=== PATIENT | male | born 1945 | race Caucasian/White ===

== ENCOUNTER 2017-02-18 09:06 | Outpatient (CLI) | payer MEDICARE, OTHER | END 2017-02-18 09:07 | disposition home or self-care (01) | LOC: LAB.F 09:06 | PROVIDERS: ATTEND Student in an Organized Health Care Education/Training Program | DX: Z53.9 Procedure and treatment not carried out, unspecified reason (principal) ==

== ENCOUNTER 2017-07-23 14:21 | Outpatient (CLI) | payer MEDICARE, OTHER ==
--- NOTE | 2017-07-26 17:43 | DEXA Report ---
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 Please evaluate bone mineral density. TECHNIQUE: Dual energy x-ray absorptiometry (DXA) was performed on a [employer] ([email or web address]) system. Regions measured are the AP spine and hip. COMPARISON: 05/26/2016. In accordance with the International Society for Clinical Densitometry (ISCD) guidelines, data from previous exams may be reanalyzed using current recommendations and techniques. This is done to allow a more accurate basis for comparison with the current study. FINDINGS The data for the lumbar spine is as follows: REGION BMD (g/cm/cm) T-SCORE Z-SCORE L1 1.500 2.8 3.6 L2 1.242 0.0 0.8 L3 1.177 -0.5 0.2 L4 1.480 2.0 2.8 L1-L4 1.351 1.1 1.9 NOTE: All evaluable vertebrae are used for classification. The data for the hip is as follows: REGION BMD (g/cm/cm) T-SCORE Z-SCORE Neck 1.100 0.2 1.7 TOTAL 1.133 0.2 1.2 NOTE: The femoral neck or total proximal femur, whichever is lowest, is used for classification. DEXA RESULTS SUMMARY: Spine SCAN DATE AGE BMD T-SCORE BMD CHANGE VS BASELINE BMD CHANGE VS PREVIOUS 07/23/[age] 1.351 -- -0.330* -19.6* 05/26/2016 [age] 1.681 -- -- -- * Denotes significant change at the 95% confidence level. Denotes dissimilar scan types or analysis methods. DEXA RESULTS SUMMARY: Total hip SCAN DATE AGE BMD T-SCORE BMD CHANGE VS BASELINE BMD CHANGE VS PREVIOUS [age] 1.133 -- -0.044* -3.7* 05/26/2016 70.9 1.177 -- -- -- * Denotes significant change at the 95% confidence level. Denotes dissimilar scan types or analysis methods. Lumbar spine bone mineral density L1-L4 1.351 grams per cm2. T-score 1.1, Z- score 1.9. WHO classification normal, interval change compared to prior exam, a decrease of 19.6%. Femoral neck bone mineral density 1.100 grams per cm2. T-score 0.2, Z-score 1.7. WHO classification normal IMPRESSION: WHO CLASSIFICATION BASED ON THE INTERNATIONAL REFERENCE STANDARD IS NORMAL BONE MINERAL DENSITY. PLEASE KEEP IN MIND, HOWEVER, THAT SCLEROTIC METASTASES, IF PRESENT, MAY ARTIFICIALLY INCREASE THE DENSITY MEASURED. THE FRACTURE RISK IS UNKNOWN IN THIS PATIENT WITH KNOWN SCLEROTIC BONE METASTASES. RECOMMENDATION: Patients with diagnosis of osteoporosis or osteopenia should have regular bone mineral density assessment. For those eligible for Medicare, routine testing is allowed once every 2 years. Testing frequency can be increased for patients who have rapidly progressing disease or for those who are receiving medical therapy to restore bone mass. COMMENT World Health Organization (WHO) definitions for osteoporosis and osteopenia: NORMAL BMD: T-score at 1.0 or higher, fracture risk is low. OSTEOPENIA BMD: T-score between 1.0 and -2.5, fracture risk is increased. OSTEOPOROSIS BMD: T-score at 2.5 or lower, fracture risk high. National Osteoporosis Foundation recommends: 1. Obtain adequate dietary calcium (at least 1200 mg per day) and vitamin D (400 -800 international units per day). 2. Participate, as appropriate, in regular weightbearing and muscle- strengthening exercise. 3. Avoid tobacco use and reduce alcohol and caffeine intake. 4. For more detailed information see the website at www.NOF.org. TD: 07/23/2017 17:43 KHADIJAH
== END 2017-07-23 14:22 | disposition home or self-care (01) ==
LOC: DI 14:21
PROVIDERS: ATTEND Internal Medicine Hematology & Oncology
DX: C61 Malignant neoplasm of prostate (principal); C79.51 Secondary malignant neoplasm of bone
CPT/HCPCS: 77080

== ENCOUNTER 2017-12-29 13:14 | Outpatient (CLI) | payer MEDICARE, OTHER ==
[2017-12-29 18:41] LABS: % IRON SATURATION 28 % (20-50); IRON 90 ug/dL (45-182); TOTAL IRON BINDING CAPACITY 326 ug/dL (250-450); TRANSFERRIN 233 mg/dL (180-329)
== END 2017-12-29 13:15 | disposition home or self-care (01) ==
LOC: LAB.F 13:14
PROVIDERS: ATTEND Internal Medicine Pulmonary Disease
DX: G25.81 Restless legs syndrome (principal); D50.9 Iron deficiency anemia, unspecified
CPT/HCPCS: 36415; 82728; 83540; 84466

== ENCOUNTER 2018-06-22 09:40 | Outpatient (CLI) | payer MEDICARE, OTHER ==
[2018-06-22 18:36] LABS: BASOPHILS % (AUTO) 1.3 %; EOSINOPHILS # (AUTO) 0.4 10^3/uL (0.0-0.7); HGB - HEMOGLOBIN 10.7 g/dL (14.0-18.0); LYMPHOCYTES # (AUTO) 0.9 10^3/uL (1.5-3.5); LYMPHOCYTES % (AUTO) 25.4 %; MEAN CORPUSCULAR HEMOGLOBIN 31.5 pg (27.0-31.0); MEAN CORPUSCULAR HGB CONC 33.6 g/dL (32.0-36.0); MEAN CORPUSCULAR VOLUME 93.6 fL (80.0-94.0); MONOCYTES # (AUTO) 0.3 10^3/uL (0.0-1.0); MONOCYTES % (AUTO) 9.8 %; NEUTROPHILS # (AUTO) 1.9 10^3/uL (1.5-6.6); NEUTROPHILS % (AUTO) 53.5 %; PLT - PLATELET COUNT 147 10^3/uL (130-450); RED CELL DISTRIBUTION WIDTH 14.4 % (12.0-15.0); WHITE BLOOD COUNT 3.5 x10^3/uL (4.8-10.8)
[2018-06-22 19:26] LABS: % IRON SATURATION 16 % (20-50); IRON 58 ug/dL (45-182); TOTAL IRON BINDING CAPACITY 365 ug/dL (250-450); TRANSFERRIN 261 mg/dL (180-329)
== END 2018-06-22 09:41 | disposition home or self-care (01) ==
LOC: LAB.F 09:40
PROVIDERS: ATTEND Internal Medicine Pulmonary Disease
DX: D50.9 Iron deficiency anemia, unspecified (principal)
CPT/HCPCS: 36415; 82728; 83540; 84466; 85025

== ENCOUNTER 2020-08-09 11:30 | Outpatient (CLI) | payer MEDICARE, OTHER ==
[2020-08-09 15:16] LABS: CHOL/HDL RATIO 2.2 (<5.0); CHOLESTEROL 205 mg/dL; HDL CHOLESTEROL 95 mg/dL; LDL CHOLESTEROL,CALCULATED 102 mg/dL; LDL/HDL RATIO 1.1 (<3.6); TRIGLYCERIDES 41 mg/dL; VLDL CHOLESTEROL 8 mg/dL
== END 2020-08-09 11:31 | disposition home or self-care (01) ==
LOC: LAB.S 11:30
PROVIDERS: ATTEND Psychiatry & Neurology Neurology
DX: E78.5 Hyperlipidemia, unspecified (principal)
CPT/HCPCS: 36415; 80061; 83721

== ENCOUNTER 2020-09-05 08:00 | Outpatient (CLI) | payer MEDICARE, OTHER ==
--- NOTE | 2020-09-05 15:43 | XRAY Report ---
PROCEDURE: Toe(s) RT INDICATIONS: CONTUSION OF RIGHT 5TH DIGIT TECHNIQUE: 3 views of the second toe(s) acquired. COMPARISON: None FINDINGS: Bones: No fractures or dislocations. No suspicious bony lesions. Soft tissues: No suspicious soft tissue densities. IMPRESSION: No visualized acute fracture or dislocation. However, occult injury cannot be excluded. Recommend yovanny rt interval imaging follow-up in 7-10 days as clinically indicated for additional evaluation. Reviewed by: Aliya Dawn MD on 09/05/2020 3:41 PM PDT Approved by: Aliya Dawn MD on 09/05/2020 3:41 PM PDT Station ID: [id number]
== END 2020-09-05 23:59 | disposition home or self-care (01) ==
LOC: DI.S 08:00
PROVIDERS: ATTEND Emergency Medicine
DX: S90.121A Contusion of right lesser toe(s) without damage to nail, initial encounter (principal)

== ENCOUNTER 2020-11-28 08:50 | Outpatient (CLI) | payer MEDICARE, OTHER ==
--- NOTE | 2020-11-29 17:28 | Nuclear Medicine Report ---
PROCEDURE: Bone Whole Body INDICATIONS: METASTATIC PROSTATE CA RADIOPHARMACEUTICAL: 23.6 mCi Tc-99m MDP IV. TECHNIQUE: Delayed whole-body scintigrams were obtained approximately 3-4 hours after intravenous injection of r adiotracer. Anterior and posterior views were acquired from vertex to feet. Additional left and rig ht oblique views of the skull and cervical spine were obtained. COMPARISON: Whole-body bone scan, 12/03/2019. FINDINGS: There is intense uptake in the medial aspect of the left clavicle or the lateral aspect of the sternal at the left sternoclavicular junction. This finding is new and highly suspicious for new metastasis. Noted is a focus of increased uptake in the left sacral ala, consistent with metastasis. Heterogeneous uptake in the cervical, thoracic and lumbar spine is present, improved compared to the prior examination, consistent with partial treatment response. No lesions are identified in skull, scapulae, ribs, and visualized shafts of the long bones. IMPRESSION: 1. Intense abnormal activity in the medial head of the left clavicle and the lateral aspect of the st ernum, new since the last bone scan, highly suspicious for metastasis. 2. Increased uptake in the left sacral ala is unchanged, consistent with metastasis. 3. Low level increased uptake in spine appears improved, likely secondary to treated metastatic disea se. Recommend radiographic and clinical correlation. Reviewed by: Ubaldo Merchant MD on 11/29/2020 5:26 PM PDT Approved by: Ubaldo Merchant MD on 11/29/2020 5:26 PM PDT Station ID: [id number]
== END 2020-11-28 08:51 | disposition home or self-care (01) ==
LOC: DI 08:50
PROVIDERS: ATTEND Internal Medicine Hematology & Oncology
DX: C61 Malignant neoplasm of prostate (principal); C79.51 Secondary malignant neoplasm of bone; R93.7 Abnormal findings on diagnostic imaging of other parts of musculoskeletal system
CPT/HCPCS: 78306

== ENCOUNTER 2021-02-13 10:10 | Outpatient (CLI) | payer MEDICARE, OTHER ==
[2021-02-13] MEDS ORDERED: BUFFERED LIDOCAINE 10 ML SYRINGE ONE (10:54)
[2021-02-13] MEDS ORDERED: LACTATED RINGERS 1,000 ML IV ONE ×2 (11:04→12:04)
[2021-02-13 11:11] LABS: INR 1.2 (0.8-1.2); PT - PROTHROMBIN TIME 13.4 secs (9.9-12.6)
[2021-02-13] MEDS ORDERED: MIDAZOLAM 2 MG/2 ML VIAL ONE (11:40)
[2021-02-13] MEDS ORDERED: fentaNYL 100 MCG/2 ML VIAL ONE (11:40)
[2021-02-13 13:43] VITALS: BP 122/68
--- NOTE | 2021-02-13 13:56 | CT Report ---
PROCEDURE: BONE MARROW BX W/ASPIRATION Sedation analgesia for 15 minutes. INDICATIONS: METASTATIC CASTRATION RESISTANT PROSTATE CA TECHNIQUE: The indications, alternatives, benefits, risks, and possible complications of the procedure were comm unicated to the patient. Informed written consent from the patient was obtained and placed in the art. Continuous EKG and hemodynamic monitoring was started by trained personnel. For radiation dose reduction, the following was used: automated exposure control, adjustment of mA and/or kV according to patient size. The patient was brought to the CT suite and senior receptionist spiral CT imaging was performed with localization g rid. The appropriate site for percutaneous access to the biopsy target was marked, was prepped and d raped sterilely, and was infused with local anaesthesia. Under CT guidance, a core biopsy trocar and needle set was advanced to the biopsy target, and specimen(s) were obtained. The trocar and needle were then removed, and the patient was sent for post-procedure monitoring. COMPARISON: None. FINDINGS: Biopsy site: Right posterior iliac wing Needle: Bone biopsy access kit Number of passes: 1 Medications: 1% lidocaine for local anaesthesia. IV Fentanyl and Versed for conscious sedation for 15 minutes (see nursing record). Complications: None. IMPRESSION: Successful CT-guided biopsy of right iliac wing. Reviewed by: Ghanshyam Peralta MD on 02/13/2021 1:55 PM PST Approved by: Ghanshyam Peralta MD on 02/13/2021 1:55 PM PST Station ID: [id number]
== END 2021-02-13 10:11 | disposition home or self-care (01) ==
LOC: DI 10:10
PROVIDERS: ATTEND Internal Medicine Hematology & Oncology
DX: C61 Malignant neoplasm of prostate (principal); C79.51 Secondary malignant neoplasm of bone
CPT/HCPCS: 36415; 38222; 77012; 85610; 85730; 88184; 88185; 88305; 88311; 88313; 88342; 88360; J7120

== ENCOUNTER 2021-03-03 14:53 | Outpatient (CLI) | payer MEDICARE, OTHER | END 2021-03-03 14:54 | disposition home or self-care (01) | LOC: RT 14:53 | PROVIDERS: ATTEND Internal Medicine Hematology & Oncology | DX: C61 Malignant neoplasm of prostate (principal) | CPT/HCPCS: 93005 ==

== ENCOUNTER 2021-03-17 09:45 | Outpatient (CLI) | payer MEDICARE, OTHER ==
--- NOTE | 2021-03-17 20:22 | CONSULTATION NOTE ---
Palliative Care Consultation - Referral Referring Provider: Dr. Kamron Wick Time of Visit: 0830 60 minutes Referral setting: 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 He has received multiple lines of treatment since. His initial prostate cancer diagnosis was a [place] 7, PSA 9, T3N0, he did receive a prostatectomy, but had rapid progression of disease. He did pursue naturopathic therapy, but with increasing PSA, did initiate Lupron. Patient has received Provenge x3 infusions, last infusion on 04/25/2020. He has explored radium 2-3 therapy, declined at this point in time. Patient was put on Xtandi 10/2020, he tolerated this very poorly, with significant decline in functional status, worsening restless leg syndrome, and anemia. He had since received a blood transfusion with improvement, has transitioned over to Zytiga at 250 mg, with prednisone, And has tolerated this better with improvement in quality of life. Because of his persistent anemia, he did receive up bone marrow biopsy, though this did not show any apparent MDS, or mets, leukemia or lymphoma. He remains at hemoglobin of 10.0 today which is tolerable. Patient also describes somewhat debilitating restless leg syndrome, that he is struggled with for extended period of time, currently is taking methadone 15 mg, with good response. He remains on multiple supplements prescribed by go cart mechanic, though his go cart mechanic is since retired. Patient also has known tachybradycardia syndrome, atrial fib, s/p pacemaker placement, and describes some intermittent palpitations. Patient self medicates with as needed metoprolol with some response. Patient approaches his healthcare with support of his family, and much exploration of weighing benefits and burdens particularly different medications. He prefers minimal pharmacologic intervention, and appears to be actively involved in his decision-making in regards to this. Palliative care referral has been placed secondary to patient's metastatic disease, patient though presents with improving quality of life, decreasing PSA, and responding currently to his current treatment regimen. I suspect with his recent intolerance of the Xtandi, concern for patient's functional decline at that time, and in the setting of progressive disease triggered referral to continue explore weighing benefits and burdens of treatment interventions in the context of quality and quantity of life. Patient advised meeting with palliative care today, to establish rapport and start exploring goals of care. Medical/Surgical History - Past Medical History Cardiovascular: reports: High cholesterol, Atrial fibrillation, Other (amyloid a ngiopathy (brain bleed)) Respiratory: reports: Other (pulmonary HTN) Neuro: TIA (2015 x 2), Other (persistent RLS) Endocrine/Autoimmune: reports: Type 2 diabetes GI: reports: None : reports: Other (prostate CA; frequency pending urology consut) HEENT: reports: Other (new hearing loss left ear; improved) Psych: reports: None Musculoskeletal: reports: Fatigue, Other (extensive cecilia mets; carpal tunnel syndrom) Derm: reports: None MRSA Hx?: No - Past Surgical History Ortho: reports: Rotator cuff repair Cardiovascular: reports: Pacemaker Derm: reports: Skin cancer surgery - Substance History Use: Uses substance without health or social issues: NONE Social History - Living Situation Living arrangement: At home Living Situation: With spouse/s.o. Support System: Patient is here with his kit Amy, they have been 56 years. He is retired from IT at [employer], she is retired from [employer]. They have been in the community since 1999 when moved to [facility]. His brother lives here as well, who also has prostate cancer and recently diagnosed with colon cancer. They are well connected to their jainism and community, they have 3 children. Their daughter Kim from [place], who is quite supportive and exploring various treatments and providing input, is planning to move up, this would be a tremendous support to both also have a daughter in [place] and his son and in [place]. Family History - Family History Family History: Mother: , Cancer (breast and bladder), Father: , Brother: Alive and Well (prostate and colon) Medications/Allergies - Medications Home Medications: Ambulatory Orders Medication Instructions Recorded Confirmed metFORMIN [Glucophage] 500 mg PO DAILY 08/27/15 03/19/21 Acetaminophen [Tylenol] 650 mg PO Q4HR PRN #0 tablet 11/19/15 03/19/21 Methadone [Methadone Hcl] 15 mg PO DAILY 08/22/18 03/19/21 Abiraterone Acetate [Zytiga] 250 mg PO DAILY 03/03/21 03/19/21 predniSONE [Deltasone] 5 mg PO BID 03/06/21 03/19/21 Metoprolol Tartrate [Lopressor] 50 mg PO PRN PRN 03/19/21 03/19/21 polyethylene glycoL 3350 [Miralax] 17 gm PO DAILY 03/19/21 03/19/21 - Allergies Allergies/Adverse Reactions: Allergies Allergy/AdvReac Type Severity Reaction Status Date / Time No Known Drug Allergies Allergy Verified 09/02/20 13:43 Review of Systems - Constitutional Constitutional: reports: Fatigue, Weakness, Night sweats, Weight stable (69.9). denies: Fever - Ears, Nose & Throat Ears, Nose & Throat: reports: Hearing loss (new left ear; some return; pending ENT visit) - Cardiovascular Cardiovascular: reports: Palpitations (more frequent; self medicates with metoprolol; perceives SE of fatigue so doesn't take regularly), Decr. exercise tolerance (walking 45 minutes several times a week) - Respiratory Respiratory: reports: SOB with exertion. denies: Cough, SOB at rest - Gastrointestinal Gastrointestinal: reports: Good appetite (improved). denies: Constipation (uses Miralax daily), Nausea - Genitourinary Genitourinary: reports: Frequency. denies: Dysuria, Incontinence - Musculoskeletal Musculoskeletal: reports: Muscle weakness - Neurological Neurological: denies: Numbness - Psychiatric Psychiatric: reports: Depression, Anxiety - Endocrine Endocrine: reports: Diabetes type 2 - Hematologic/Lymphatic Hematologic/Lymph: reports: Anemia (recent blood transfusion; 10.0) - All Other Systems All Other Systems: reports: Reviewed and negative Physical Exam - Vital Signs Temperature: 36.2 C Pulse Rate: 60 Respiratory Rate: 15 O2 Saturation: 99 (ra @ rest) Blood Pressure: 151/87 - Physical Exam General Appearance: positive: No acute distress, Alert Eyes Bilateral: positive: Normal inspection ENT: positive: No signs of dehydration Neck: positive: Trachea midline Cardiovascular: positive: Regular rate & rhythm Respiratory: positive: No respiratory distress, Breath sounds nml, Diminished in bases Abdomen: positive: Soft Skin: positive: Pallor Extremities: positive: No pedal edema Neurologic/Psychiatric: positive: Oriented x3, Mood/affect nml, Flat affect Palliative Care - POLST Patient has POLST: No POLST Status: Full Code Pain: Location (RLS), Severity (10), Comment (reports on methadone 15 mg currently; satisfied with current regimen) Tiredness/Fatigue: Moderate (4-6) Drowsiness/Sedation: Moderate (4-6) (improving of Xtandi) Nausea: None Anorexia: None Dyspnea: Mild (1-3) Depression: Moderate (4-6) Anxiety: Moderate (4-6) Feelings of wellbeing/Perceived Quality of Life: Fair, Acceptable, Improved (recently with decline of function with Xtandi) Sleep: Sleep improved, Variable sleep pattern Constipation: Yes, Opoid induced, Managed Performance Status: Patient has been active all of his life, and found recent decline with worsening anemia and side effects from Xtandi somewhat profound and distressing. He has continued improved, is up to walking again about 45 minutes. Is able to manage his ADLs. - Palliative Care Discussion: Patient shared in the telling of his story, the multiple ways he has approached to manage his disease since 2013. These include naturopathic, integrating naturopathic supplements, accessing multiple specialists, and weighing benefits and burdens of treatment options with extensive exploration. Patient very much does not like medications, and has been trialed on multiple different things. He has also had an extensive journey with RLS, this has impacted his quality of life significantly, currently does feel like it is managed though it to exacerbated during the time he was on Xtandi. Is feeling a significant amount of anxiety, as he is always counted on his PSA to direct treatment, of note it has continued to decrease, today was 0.880. I suspect in reviewing oncology notes, they are talking about transition to neuroendocrine type tumor. Patient has had nuclear scan recently, 12/03 that did show progressive bone disease in left clavicle and left sacral area. Patient and are grappling with the seriousness of his illness, though in the context of prostate cancer the journey is fairly drawn out. They though have not revisited advance care planning nor end-of-life planning recently but suspect both feel somewhat more vulnerable with patient's recent decline in functional status though he has improved. Identified her daughter Kim is a significant support, and also provides input into exploring treatment options. Patient expresses his journey with his johnie is quite supportive, and has deepened as result of this. Patient continues to explore options for extending prognosis, looking to define what patient's current identification is for quality of life versus quantity of life. 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 Patient has had recent functional decline but improvement with transition from Xtandi to Zytiga with prednisone. Patient presents with low symptom burden, has long-term RLS currently controlled, atrial fib with intermittent palpitations worsening, and improving PSA. Palliative care meeting with patient and to establish rapport, explore symptom management needs, advanced care planning, and anticipatory guidance. Recommendations/Counseling Done: 1. Bony mets. Patient does not present with any pain related to metastatic bony disease. I suspect with the methadone for his RLS and recent transition to the prednisone, is addressing any pain issues that may have arisen from his disease.Patient would be a candidate in the future for radiation for targeted lesions if needed. 2. Anxiety. This appears to be multifactorial, patient does express concern not being able to follow-up with PSA for monitoring his disease progression, though does appear to be decreasing. It appears patient's approach has been to actively participate and decisions regarding treatment and controlling the disease. Patient recently with significant side effects from Xtandi, I suspect this has increased his sense of vulnerability. Patient does use meditation, finds comfort and support in his johnie, counseling provided to normalize his current feelings of distress. Encouraged to continue to incorporate and strengthen his coping mechanisms, but also to consider ways to incorporate michele/distraction that is not related to his treatment or cancer for he and his . 3. Atrial fib. Patient describes increasing episodes of palpitations, particularly with activity. Suspect this is multifactorial, patient uses metoprolol as a on needed basis. Patient on methadone, Zytiga, and multiple supplements. He did not have a list of these, recommended he reestablish with a go cart mechanic, recommended oncology go cart mechanic at [facility] secondary to multiple drug interactions and specialty. Patient health care belief system, does incorporate integrated care, this may be of support.Methadone in particular has multiple drug interactions, patient may also benefit from restarting metoprolol on a daily basis, though is quite hesistant to taking medications overall. 4. Advanced care planning. Introduced the role of palliative care to follow alongside the journey, he does understand his disease is not curative, but continues to pursue all options in the context of quality of life as well as quality of life. Patient and have not revisited their advance care planning documents for several years, and to admit need to update end-of-life planning legal/financial affairs. We did discuss in the context of this does not need to increase anxiety, but allows for better decision-making in the future in the setting of serious illness. Given patient's recent functional decline though has improved, defer to this in the context of how things can change in a fairly quick manner, again preparing and hoping for the best, but also being able to respond to crisis. We will see patient within next 1-2 office visits, requested they bring in advance care planning documents to review and update as needed. 60 minutes review of records, oncology notes, labs, [id number] with patient and , for counseling for symptom management, establishing rapport, and anticipatory guidance
== END 2021-03-17 09:46 | disposition home or self-care (01) ==
LOC: PC 09:45
PROVIDERS: ATTEND Nurse Practitioner Adult Health
DX: Z51.5 Encounter for palliative care (principal); C79.51 Secondary malignant neoplasm of bone; C61 Malignant neoplasm of prostate; F41.9 Anxiety disorder, unspecified; D63.0 Anemia in neoplastic disease; G25.81 Restless legs syndrome; I48.91 Unspecified atrial fibrillation; R00.2 Palpitations; Z79.52 Long term (current) use of systemic steroids; Z79.891 Long term (current) use of opiate analgesic; Z79.899 Other long term (current) drug therapy
CPT/HCPCS: 99215

== ENCOUNTER 2021-04-29 15:14 | Outpatient (CLI) | payer MEDICARE, OTHER ==
--- NOTE | 2021-04-30 12:35 | DEXA Report ---
PROCEDURE: Dexa Spine and/or Hip INDICATIONS: LNG TRM (CRNT) USE OF AGNT AFF ESTROG RECPT ESTR TECHNIQUE: Dual energy x-ray absorptiometry (DXA) was performed on a [employer] System. Regions measur ed are the AP Spine, femoral neck, and if needed forearm. COMPARISON: None. FINDINGS: Lumbar Spine: Bone Mineral Density 1.255 g/cm/cm,T score 0.3, normal Left Hip: Bone Mineral Density 1.014 g/cm/cm,T score -0.6, normal Left Femoral Neck: Bone Mineral Density 1.055 g/cm/cm, T score -0.1, normal (T score greater or equal to -1.0: NORMAL) (T score from -1.1 to -2.4: OSTEOPENIA) (T score less than or equal to -2.5 to: OSTEOPOROSIS) Impression: Normal bone mineral density Patients with diagnosis of osteoporosis or osteopenia should have regular bone mineral density assess ment. For those eligible for Medicare, routine testing is allowed once every 2 years. Testing frequ ency can be increased for patients who have rapidly progressing disease or for those who are receivin g medical therapy to restore bone mass. Reviewed by: Harmeet Christina on 04/30/2021 12:34 PM PST Approved by: Harmeet Christina on 04/30/2021 12:34 PM PST Station ID: [id number]
== END 2021-04-29 15:15 | disposition home or self-care (01) ==
LOC: DI 15:14
PROVIDERS: ATTEND Internal Medicine Hematology & Oncology
DX: C61 Malignant neoplasm of prostate (principal); C79.51 Secondary malignant neoplasm of bone; Z79.818 Long term (current) use of other agents affecting estrogen receptors and estrogen levels

== ENCOUNTER 2021-12-31 12:27 | Emergency (ER) | payer MEDICARE, OTHER ==
--- NOTE | 2021-12-31 14:11 | XRAY Report ---
PROCEDURE: Shoulder 3 View LT INDICATIONS: left shoulder pain TECHNIQUE: 3 views of the shoulder were acquired. COMPARISON: None. FINDINGS: Bones: No fractures or dislocations. No suspicious bony lesions. Visualized ribs appear intact. D egenerative changes of the acromioclavicular and glenohumeral joints. Soft tissues: Small calcification projects near the humeral head. Left chest pacemaker. IMPRESSION: 1. No acute osseous abnormality. 2. Small calcification projecting near the humeral head could indicate sequela of calcific tendinopat hy. Reviewed by: Scott Padilla MD on 12/31/2021 2:10 PM PDT Approved by: Scott Padilla MD on 12/31/2021 2:10 PM PDT Station ID: [id number]
[2021-12-31] MEDS ORDERED: HYDROmorphone 1 MG/ML CARPUJECT IM STA ×2 (14:16→15:41)
--- NOTE | 2021-12-31 14:18 | ED Physician Documentation ---
History of Present Illness - Stated complaint Stated Complaint: LT SHOULDER/NECK PX - Chief complaint Chief Complaint: Ext Problem - Additonal information Additional information: 76-year-old male presents emergency department for evaluation of what he describes as excruciating neck and shoulder pain. He states that for about the last 6 weeks he has been dealing with a severe right-sided sciatica. He has received a cortisone injection and is currently on a methylprednisolone blister pack day 3 . I am because of the right-sided sciatica for the last 6 weeks he has been sleeping on his left side at night. Over the last 2 days he has had pain in the left shoulder with radiation down to the index finger and into the neck. He now has some numbness in the left index finger. He has taken leftover hydromorphone without relief of symptoms. Yesterday he began wearing a soft collar around his neck which he feels helped the symptoms. He has had no fevers. He has no chest pain or shortness of air. He denies any dyspnea. He does have a pacer in place. He is not anticoagulated. He does have a history of brain injury/bleed Review of Systems Constitutional: denies: Fever, Chills Eyes: reports: Reviewed and negative Nose: reports: Reviewed and negative Throat: reports: Reviewed and negative Cardiac: reports: Reviewed and negative Respiratory: reports: Reviewed and negative Skin: reports: Reviewed and negative Musculoskeletal: reports: Neck pain, Extremity pain Neurologic: reports: Reviewed and negative PD PAST MEDICAL HISTORY - Past Medical History Cardiovascular: High cholesterol, Atrial fibrillation, Other (amyloid angiopathy (brain bleed)) Respiratory: Other (pulmonary HTN) Neuro: TIA (2015 x 2), Other (persistent RLS) Endocrine/Autoimmune: Type 2 diabetes GI: None : Other (prostate CA; frequency pending urology consut) HEENT: Other (new hearing loss left ear; improved) Psych: None Musculoskeletal: Fatigue, Other (extensive cecilia mets; carpal tunnel syndrom) Derm: None - Past Surgical History Past Surgical History: Yes Ortho: Rotator cuff repair Cardiovascular: Pacemaker Derm: Skin cancer surgery - Present Medications Home Medications: Ambulatory Orders Medication Instructions Recorded Confirmed metFORMIN [Glucophage] 500 mg PO DAILY 08/27/15 12/08/21 Acetaminophen [Tylenol] 650 mg PO Q4HR PRN #0 tablet 11/19/15 12/08/21 Methadone [Methadone Hcl] 15 mg PO DAILY 08/22/18 12/08/21 Abiraterone Acetate [Zytiga] 250 mg PO DAILY 03/03/21 12/08/21 predniSONE [Deltasone] 5 mg PO BID 03/06/21 12/08/21 Metoprolol Tartrate [Lopressor] 50 mg PO PRN PRN 03/19/21 12/08/21 polyethylene glycoL 3350 [Miralax] 17 gm PO DAILY 03/19/21 12/08/21 metFORMIN [Glucophage] 500 mg PO ONCE #90 tablet 06/02/21 12/08/21 HYDROmorphone [Dilaudid] 2 mg PO BID PRN #15 tablet 12/31/21 methocarbamoL [Methocarbamol] 750 mg PO BID PRN #15 tablet 12/31/21 - Allergies Allergies/Adverse Reactions: Allergies Allergy/AdvReac Type Severity Reaction Status Date / Time No Known Drug Allergies Allergy Verified 12/31/21 12:38 - Social History Does the pt smoke?: No Smoking Status: Never smoker Does the pt drink ETOH?: No Does the pt have substance abuse?: No - Immunizations Immunizations are current?: Yes - POLST Patient has POLST: No PD ED PE NORMAL - General General: Alert and oriented X 3, No acute distress, Well developed/nourished - HEENT HEENT: Atraumatic, Moist mucous membranes, Pharynx benign - Neck Neck: Supple, no meningeal sign, No adenopathy. No: No bony TTP (Mild tenderness elicited with palpation of the cervical spine though no crepitus step-off or deformity. Full range of motion in all planes though somewhat painful. Movement elicits pain into the left shoulder) - Cardiac Cardiac: RRR, No murmur (Paced), Strong equal pulses - Respiratory Respiratory: No respiratory distress, Clear bilaterally - Abdomen Abdomen: Normal bowel sounds, Soft - Extremities Extremities: No deformity, No tenderness to palpate, Normal ROM s pain. No: Other (Pain surrounding the left AC joint without step-off crepitus or deformity. Full range of motion of the shoulder in all planes. Negative drop arm test. 2+ radial pulse.) - Neuro Neuro: Alert and oriented X 3, cake washer 2-12 intact Eye Opening: Spontaneous Motor: Obeys Commands Verbal: Oriented GCS Score: 15 Results - Vitals Vitals: Vital Signs - 24 hr 12/31/21 12:33 Temperature 36.7 C Heart Rate 66 Respiratory 16 Rate Blood Pressure 187/100 H O2 Saturation 98 Oxygen O2 Source Room air - Labs Labs: Laboratory Tests 12/31/21 12/31/21 14:23 14:23 Sodium 136 Potassium 4.2 Chloride 98 L Carbon Dioxide 30 Anion Gap 8.0 BUN 16 Creatinine 0.9 Estimated GFR (MDRD) 82 L Glucose 87 Calcium 10.0 Troponin I High Sens 9.9 - Rads (name of study) left shoulder Radiology: Final report received (No acute osseous abnormality. Small calcification projecting near the humeral head could indicate sequelae of calcific tendinopathy) CT cervical spine Radiology: Final report received (No evidence of fracture or traumatic malalignment. Degenerative disc disease and arthropathy associated with moderate central canal stenosis C4-C6) PD MEDICAL DECISION MAKING - ED course Complexity details: reviewed results, re-evaluated patient, considered differential, d/w patient, d/w family ED course: 76-year-old male presents emergency department for evaluation of neck and left shoulder pain. Symptoms began a few days ago. This however follows a recent history of severe right leg sciatica. For this he has been completing a course of methylprednisolone. He is also had a cortisol injection and has been taking as needed Dilaudid at home. Patient denies any falls or trauma but due to the sciatic pain he is sleeping strictly on his left side. The pain radiates from his anterior shoulder up into the neck and down the left arm. He has some numbness and tingling in his thumb and finger. No weakness. On exam I suspect that he has a cervical radiculopathy as the cause for the pain in the neck. X-ray of the left shoulder was unremarkable. Subsequent CT imaging of the cervical spine showed degenerative disc disease throughout as well as central canal stenosis between C4 and C6. Initially patient was given a dose of Dilaudid here in the ER with no relief of symptoms. I then repeated it with 1.5 mg but again he had minimal relief. He does have a fair opioid tolerance given the recent analgesics that he has been on. He has gabapentin at home and I am encouraging him to use this 300 mg twice daily for the next week. I would like him to follow with his primary care doctor to escalate the dose as I suspect his neuropathic pain will benefit from use of the gabapentin. A prescription for methocarbamol will also be sent to the pharmacy as well as a limited amount of Dilaudid orally which she has already been taking. He has been using a soft collar which he finds helps his symptoms. I am encouraging him to use this for no more than 6 to 8 hours a day to prevent worsening symptoms in the long-term. He is followed by Dr. Willis a consumer insights specialist at the [facility]. I am in asking him to have follow-up as soon as possible to discuss these worsening symptoms I am prescribing a short course of short-acting opioid pain medication for this patient. I have reviewed the patients [employer] and no concerning findings were noted. I have discussed that the opioids are for short term therapy only, and will not be refilled from the ED. Departure - Departure Disposition: 01 Home, Self Care Clinical Impression: Central stenosis of spinal canal, Cervical radiculopathy Left shoulder pain Qualifiers: Chronicity: acute Qualified Code(s): M25.512 - Pain in left shoulder Condition: Stable Record reviewed to determine appropriate education?: Yes Instructions: ED Cervical Radiculopathy Prescriptions: HYDROmorphone [Dilaudid] 2 mg PO BID PRN #15 tablet PRN Reason: Pain methocarbamoL [Methocarbamol] 750 mg PO BID PRN #15 tablet PRN Reason: Spasms Comments: José Manuel you are seen today in the emergency department because you have been having some pain in your left shoulder that radiates down the arm and into the neck. This follows a recent bout with right-sided sciatica and due to this you are sleeping exclusively on your left side and shoulder. However as we discussed at the bedside it sounds like you may have a condition called cervical radiculopathy in which the nerves that come from the spinal cord can become compressed and inflamed and this can certainly cause the pain down your arm as well as the numbness that you are having. Please complete the course of methylprednisolone that your spine doctor started. This is a steroid to treat the sciatica. You can use your cervical collar no more than 8 hours a day. I have sent a prescription for methocarbamol a muscle relaxer to the [email or web address] in [place]. I have also sent a prescription for a limited amount of Dilaudid to the [email or web address] in [place]. We would not be able to refill this medication in any way through the emergency department. I would like you to talk with your spine doctor to determine if you would benefit from referral to a pain specialist. Sometimes neuropathic pain can benefit from escalating doses of gabapentin and I would like you to discuss this closely with your primary care doctors. I am prescribing a short course of narcotic pain medication for you. These are potentially dangerous and addictive medications that should be used carefully. These medications may constipate you. Take an hxme-ras-ooceljn stool softener (docusate) twice daily with plenty of water while taking these medications. If you go 24 hours without a bowel movement, take flhj-uqe-mmwzhxq miralax, per package instructions. Do not drink or drive while taking these medications. If you received narcotic or sedating medications while in the emergency department, do not drive for 24 hours. Store this medication in a safe, secure place and out of reach of children. It is a violation of federal law to give or sell this medication to another person or to use in a manner other than prescribed. The ED will not refill narcotic prescriptions, including prescriptions lost or stolen. To dispose of unwanted medications: 1. [facility] [address] in [place] has a medication drop box. They accept prescription medications (in pill form) Wednesday through Wednesday 9:00 a.m. to 5:00 p.m. 2. The [facility] Police Department accepts prescription medications (in pill form only) for disposal year round. Call for more information. 3. Contact the [facility] for the next [facility] sponsored prescription drug collection event. , [phone], or [phone]; Note that many narcotic pain relievers also contain Tylenol/acetaminophen. Please ensure that your total dose of acetaminophen from all sources does not exceed 3 g (3000 mg) per day.
[2021-12-31 14:42] LABS: CREATININE 0.9 mg/dL (0.6-1.2); POTASSIUM 4.2 mmol/L (3.5-5.0)
--- NOTE | 2021-12-31 15:05 | CT Report ---
PROCEDURE: CT cervical spine without contrast INDICATIONS: neck pain radiating into left arm TECHNIQUE: Noncontrast 3 mm thick sections acquired from the skull base to the T4 level. Sagittal and coronal r eformats were then constructed. For radiation dose reduction, the following was used: automated exp osure control, adjustment of mA and/or kV according to patient size. COMPARISON: None. FINDINGS: Image quality: Excellent. Bones: No fractures or dislocations. Visualized superior ribs are intact. Degenerative disc diseas e and arthropathy in mid cervical spine results in moderate central stenosis C4-5, C5-6 Soft tissues: Prevertebral soft tissues are normal in thickness. No paravertebral hematomas. No ap ical pneumothoraces. IMPRESSION: No evidence of fracture or traumatic malalignment. Degenerative disc disease and arthropathy associated with these moderate central stenosis C4-5 and C5 -6 Reviewed by: Agapito Parmar MD on 12/31/2021 2:04 PM ELHAM Approved by: Agapito Parmar MD on 12/31/2021 2:04 PM ELHAM Station ID: [id number]
[2021-12-31 16:26] VITALS: BP 142/87
== END 2021-12-31 16:26 | disposition home or self-care (01) ==
LOC: ED 12:27
DX: M54.12 Radiculopathy, cervical region (principal); M48.02 Spinal stenosis, cervical region; M25.512 Pain in left shoulder
CPT/HCPCS: 36415; 72125; 73030; 80048; 84484; 96372; 99284; J1170

== ENCOUNTER 2022-11-20 12:08 | Emergency (ER) | payer MEDICARE, OTHER ==
[2022-11-20 12:19] VITALS: BP 140/80; O2SAT 99
--- NOTE | 2022-11-20 12:44 | ED Physician Documentation ---
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 He had a restaging scan yesterday which showed a small right lower lobe pulmonary embolism and was contacted to come to the emergency department for further evaluation and treatment. He states he has had exertional shortness of breath for 6 months. Denies pedal edema or calf pain save chronic sciatica. No chest pain. Of note while reviewing his records, it stated that his A-fib was not anticoagulated due to "a brain vascular abnormality. Contemplating atrial appendage closure procedure to risk reduce risk of blood clot." This "brain vascular abnormality" was discovered by his neurologist, Dr. Lesley jenkins at the [facility]. PD PAST MEDICAL HISTORY - Past Medical History Cardiovascular: High cholesterol, Atrial fibrillation, Other (amyloid angiopathy (brain bleed)) Respiratory: Other (pulmonary HTN) Neuro: TIA (2015 x 2), Other (persistent RLS) Endocrine/Autoimmune: Type 2 diabetes GI: None : Other (prostate CA; frequency pending urology consut) HEENT: Other (new hearing loss left ear; improved) Psych: None Musculoskeletal: Fatigue, Other (extensive cecilia mets; carpal tunnel syndrom) Derm: None - Past Surgical History Past Surgical History: Yes Ortho: Rotator cuff repair Cardiovascular: Pacemaker Derm: Skin cancer surgery - Present Medications Home Medications: Ambulatory Orders Medication Instructions Recorded Confirmed metFORMIN [Glucophage] 500 mg PO DAILY 08/27/15 09/23/22 Acetaminophen [Tylenol] 650 mg PO Q4HR PRN #0 tablet 11/19/15 09/23/22 Methadone [Methadone Hcl] 15 mg PO DAILY 08/22/18 09/23/22 Abiraterone Acetate [Zytiga] 250 mg PO DAILY 03/03/21 09/23/22 predniSONE [Deltasone] 5 mg PO BID 03/06/21 09/23/22 Metoprolol Tartrate [Lopressor] 50 mg PO PRN PRN 03/19/21 09/23/22 polyethylene glycoL 3350 [Miralax] 17 gm PO DAILY 03/19/21 09/23/22 metFORMIN [Glucophage] 500 mg PO ONCE #90 tablet 06/02/21 09/23/22 Megestrol Acetate 20 mg PO UD 09/23/22 09/23/22 dexAMETHasone [Decadron] 0.5 mg PO DAILY 10/19/22 10/19/22 Apixaban [Eliquis] 2 tab PO BID #120 tablet 11/20/22 - Allergies Allergies/Adverse Reactions: Allergies Allergy/AdvReac Type Severity Reaction Status Date / Time No Known Drug Allergies Allergy Verified 11/20/22 12:14 - Social History Does the pt smoke?: No Smoking Status: Never smoker Does the pt drink ETOH?: No Does the pt have substance abuse?: No - Immunizations Immunizations are current?: Yes - POLST Patient has POLST: No PD ED PE NORMAL - Vitals Vital signs reviewed: Yes - General General: Alert and oriented X 3, No acute distress - Cardiac Cardiac: RRR, No murmur - Respiratory Respiratory: No respiratory distress, Clear bilaterally - Abdomen Abdomen: Non tender - Extremities Extremities: No edema, No calf tenderness / cord - Neuro Neuro: Alert and oriented X 3, Normal speech Results - Vitals Vitals: Vital Signs - 24 hr 11/20/22 12:14 Temperature 36.5 C Heart Rate 66 Respiratory 16 Rate Blood Pressure 140/80 H O2 Saturation 99 Oxygen O2 Source Room air PD Medical Decision Making - ED course ED course: 77-year-old gentleman with what sounds like an asymptomatic right lower lobe small pulmonary embolism discovered on restaging scan for his prostate cancer. Recent labs reviewed with chronic stable anemia and normal renal function as of just 2 days ago. The "brain vascular abnormality" gives me pause to start anticoagulation and I will contact his neurologist for details on it. I was looking at old records. He says the vascular abnormality was discovered maybe 20 years ago. He had a TIA scare here [address] angiography at that time was negative for vascular abnormality. Subsequently I did discuss the case with Dr. Lesley Sands, his neurologist at the [facility] who looked at his chart and the diagnosis that gave her pause with anticoagulation with cerebral amyloid angiopathy. She states that given the new diagnosis of pulmonary embolism, the benefit of anticoagulation probably outweigh the risk, but he is also seeing his oncologist on Wednesday and further discussion can be had but I will start him on Eliquis in the interim. Departure - Departure Disposition: 01 Home, Self Care Clinical Impression: Prostate cancer Pulmonary embolism Qualifiers: Pulmonary embolism type: single subsegmental (without acute cor pulmonale) Qualified Code(s): I26.93 - Single subsegmental pulmonary embolism without acute cor pulmonale Condition: Stable Record reviewed to determine appropriate education?: Yes Instructions: Embolism Pulmonary Dc Prescriptions: Apixaban [Eliquis] 2 tab PO BID #120 tablet Comments: You were seen today because your staging scan from yesterday showed a very small blood clot in your right lower lobe of your lung. Because of your history of "cerebral amyloid angiopathy" I did discuss your case with your neurologist and she felt that the benefits of anticoagulation outweigh the risks. That said you should discuss this with your oncologist at your next appointment on Wednesday. He may choose to schedule you for an IVC filter versus just continuing the anticoagulation. Return if worse. I sent your prescription electronically to the [facility] in [place]. NOTE that for the first week you take a higher dose of the blood thinner, 10 mg (2 TAB) twice a day, after the first week it is just 5 mg (1 TAB) twice a day. Forms: PCP List
== END 2022-11-20 14:10 | disposition home or self-care (01) ==
LOC: ED 12:08
DX: I26.99 Other pulmonary embolism without acute cor pulmonale (principal); C61 Malignant neoplasm of prostate; I48.91 Unspecified atrial fibrillation
CPT/HCPCS: 99282; 99284

== ENCOUNTER 2023-04-22 07:45 | Day surgery (SDC) | payer MEDICARE, OTHER ==
[2023-04-22] MEDS: LACTATED RINGERS 1,000 ML IV ONE ×2 (08:12→10:05)
[2023-04-22] MEDS: KETOROLAC 0.45% OPHTH DROPS ONE (08:20)
[2023-04-22] MEDS: PROPARACAINE 0.5% OPHTH DROPS 15 ML ONE (08:20)
[2023-04-22] MEDS: CYCLOPENTOLATE 1% OPHTH DROPS 2 ML LEFTEYE ONE (08:21)
[2023-04-22] MEDS: PHENYLEPHRINE 2.5% OPHTH 2 ML DROPS ONE (08:21)
--- NOTE | 2023-04-22 09:10 | ANESTHESIA ---
Pre-Anesthesia VS, & Labs - Diagnosis L cataract - Procedure L PhacoIOL Vital Signs: Temp Pulse Resp BP Pulse Ox O2 Flow Rate 36.9 C 60 15 151/79 H 100 04/22/23 08:24 04/22/23 08:24 04/22/23 08:24 04/22/23 08:24 04/22/23 08:24 Height: 6 ft Weight (kg): 73 kg Body Mass Index: 21.8 BMI Classification: Normal - NPO >8 hours Home Medications and Allergies Home Medications: Ambulatory Orders Apixaban [Eliquis] 0.5 tab PO BID 04/21/23 Leuprolide [Lupron] 7.5 mg IM ONCE 04/21/23 metFORMIN [Glucophage] 500 mg PO DAILY 08/27/15 Methadone [Methadone Hcl] 15 mg PO DAILY 08/22/18 Abiraterone Acetate [Zytiga] 250 mg PO DAILY 03/03/21 Metoprolol Tartrate [Lopressor] 50 mg PO PRN PRN 03/19/21 polyethylene glycoL 3350 [Miralax] 17 gm PO DAILY 03/19/21 Megestrol Acetate 20 mg PO UD 09/23/22 dexAMETHasone [Decadron] 0.5 mg PO DAILY 10/19/22 Apixaban [Eliquis] 0.5 tab PO BID 04/21/23 Leuprolide [Lupron] 7.5 mg IM ONCE 04/21/23 Allergies/Adverse Reactions: Allergies Allergy/AdvReac Type Severity Reaction Status Date / Time No Known Drug Allergies Allergy Verified 04/21/23 14:11 Anes History & Medical History - Anesthetic History Anesthesia Complications: reports: No previous complications Family history of Anesthesia Complications: Denies Family history of Malignant Hyperthermia: Denies - Medical History Cardiovascular: reports: High cholesterol, Atrial fibrillation, Other (pacemaker) Pulmonary: reports: Other Gastrointestinal: reports: None Urinary: reports: Other Neuro: reports: TIA (2015 x 2), Other (persistent RLS) Musculoskeletal: reports: Fatigue, Other Endocrine/Autoimmune: Blood Disorders: reports: None Skin: reports: None Smoking Status: Never smoker Psychosocial: reports: No issues indicated History of Cancer?: Yes (prostate) - Surgical History Cardiothoracic: reports: Pacemaker Urologic: reports: Prostatic surgery Orthopedic: reports: Rotator cuff repair Dermatologic: reports: Skin cancer surgery Exam General: Alert, Oriented x3, Cooperative Dental: WNL Mouth Openin Fingerbreadth Neck Mobility: Normal Thyromental Distance: 4-6 cm Respiratory: Lungs clear Cardiovascular: Regular rate Plan Anesthesia Type: MAC Consent for Procedure(s) Verified and Reviewed: Yes Code Status: Attempt Resuscitation ASA classification: 3-Severe systemic disease Is this case an emergency?: No
[2023-04-22] MEDS ORDERED: MIDAZOLAM 2 MG/2 ML VIAL ONE (09:11)
[2023-04-22] MEDS ORDERED: EPINEPHrine 1 MG/ML AMP ONE (09:12)
[2023-04-22] MEDS ORDERED: TRIAMCIN/MOXIFLOX OPHTHALMIC 0.6 ML VIAL IO ONE (09:12)
[2023-04-22] MEDS ORDERED: BRIMONIDINE 0.2% OPHTH DROPS 5 ML ONE (09:13)
[2023-04-22] MEDS ORDERED: BSS/LIDOCAINE/EPINEPHRINE 1 ML VIAL ONE (09:13)
[2023-04-22] MEDS ORDERED: TIMOLOL 0.5% OPHTH DROPS ONE (09:13)
[2023-04-22] MEDS: BSS/LIDOCAINE/EPINEPHRINE 1 ML SYRINGE IO ONE (09:21)
[2023-04-22] MEDS: BRIMONIDINE 0.2% OPHTH DROPS 5 ML OPTH ONE (09:21)
[2023-04-22] MEDS: EPINEPHrine 1 MG/ML AMP IR ONE (09:21)
[2023-04-22] MEDS: TIMOLOL 0.5% OPHTH DROPS OPTH ONE (09:21)
[2023-04-22] MEDS: TRIAMCIN/MOXIFLOX OPHTHALMIC 0.6 ML VIAL IO ONE (09:22)
[2023-04-22] MEDS: PROPARACAINE 0.5% OPHTH DROPS 15 ML EACHEYE ONE (09:22)
[2023-04-22] MEDS: VANCOMYCIN OPHTH (TOPICAL) 10 MG/ML SYRINGE TOP ONE (09:22)
--- NOTE | 2023-04-22 10:14 | OPERATIVE REPORT ---
Operative Report - Other Other Information/Narrative: Date of Surgery: 04/22/23 Preop Dx: Visually significant cataract left eye. This was the first cataract surgery. Postop Dx: Same Procedure: Phacoemulsification with posterior chamber intraocular lens implant left eye Surgeon: Dr. Zachery Patel Anesthesia: Monitored anesthesia care Complications: None Operative Indications: This is a 77-year-old M with progressive vision loss in the left eye due to 3+ nuclear sclerotic, 2-3+ cortical, and vacuolar cataract. Best corrected visual acuity was 20/40 with glare to 20/200 vision in the left eye. Indications for surgery were: - Overall decrease in vision - Difficulty seeing street signs - Difficulty driving in low light or at night - Difficulty driving at night because of headlights from other vehicles - Difficulty with glare or bright lights in any situation The patient was consented at length concerning the risks and benefits of cataract surgery after which the patient expressed a desire to proceed with [facility]. Operative Procedure: The patient was taken into OR#3 and placed under monitored anesthesia care. A surgical time-out was conducted confirming correct patient, correct procedure, and correct surgical site. The patient was given topical anesthesia and then prepped and draped in the usual sterile fashion. The eye was entered at the 6 and 3 oclock positions. Intracameral Shugarcaine was injected into the anterior chamber followed by a dispersive viscoelastic. A continuous-tear curvilinear capsulorhexis was performed. The nucleus was hydrodissected and phacoemulsified. The cortex was evacuated using automated infusion and aspiration. A cohesive viscoelastic was injected into the capsular bag and a 16.5 diopter intraocular lens was inserted into the bag. Infusion and aspiration were used to evacuate the viscoelastic materials from the eye. The wounds were hydrated and the eye inflated to physiologic pressure using balanced salt solution. Approximately 0.25ml of a mixture of triamcinolone and moxifloxacin was injected trans-sclerally into the vitreous in the inferotemporal quadrant using a 30 gauge cannula. An additional 0.25ml of a mixture of triamcinolone and moxifloxacin was injected subconjunctivally in the superior quadrant for infection and inflammation prophylaxis. Wound integrity was checked with Weck-Allyssa sponges. The patient was taken from the operating room in good condition and given post-op instructions.
[2023-04-22 10:32] VITALS: BP 138/76; O2SAT 100
--- NOTE | 2023-04-22 15:09 | ANESTHESIA POST OP EVALUATION ---
Anesthesia Post Eval - Post Anesthesia Eval Vitals: Last Vital Signs Temp 36.3 C L 04/22/23 10:05 Pulse 60 04/22/23 10:20 Resp 16 04/22/23 10:20 BP 138/76 H 04/22/23 10:20 Pulse Ox 100 04/22/23 10:20 O2 Flow Rate CV Function Including HR & BP: Stable Pain Control: Satisfactory Nausea & Vomiting: Negative Mental Status: Baseline Respiratory Status: Airway Patent Hydration Status: Satisfactory Anesthesia Complications: None
== END 2023-04-22 07:46 | disposition home or self-care (01) ==
LOC: SDS 07:45
PROVIDERS: ATTEND Ophthalmology
DX: H25.812 Combined forms of age-related cataract, left eye (principal); I48.91 Unspecified atrial fibrillation; Z95.0 Presence of cardiac pacemaker
CPT/HCPCS: 66984; A9270; J3490; J7120

== ENCOUNTER 2023-05-25 12:38 | Outpatient (CLI) | payer MEDICARE, OTHER | END 2023-05-25 12:39 | disposition home or self-care (01) | LOC: DI 12:38 | PROVIDERS: ATTEND Internal Medicine | DX: I07.1 Rheumatic tricuspid insufficiency (principal); R06.00 Dyspnea, unspecified; Z95.0 Presence of cardiac pacemaker; C61 Malignant neoplasm of prostate | CPT/HCPCS: 93307 ==

== ENCOUNTER 2023-06-17 08:11 | Day surgery (SDC) | payer MEDICARE, OTHER ==
[2023-06-17] MEDS: LACTATED RINGERS 1,000 ML IV ONE (08:29)
[2023-06-17] MEDS: KETOROLAC 0.45% OPHTH DROPS ONE (08:48)
[2023-06-17] MEDS: PROPARACAINE 0.5% OPHTH DROPS 15 ML ONE (08:48)
[2023-06-17 08:55] VITALS: O2SAT 100
[2023-06-17] MEDS: PHENYLEPHRINE 2.5% OPHTH 2 ML DROPS ONE (08:55)
[2023-06-17] MEDS ORDERED: EPINEPHrine 1 MG/ML AMP ONE (09:56)
[2023-06-17] MEDS ORDERED: TRIAMCIN/MOXIFLOX OPHTHALMIC 0.6 ML VIAL IO ONE (09:56)
[2023-06-17] MEDS ORDERED: BRIMONIDINE 0.2% OPHTH DROPS 5 ML ONE (09:57)
[2023-06-17] MEDS ORDERED: TIMOLOL 0.5% OPHTH DROPS ONE (09:57)
[2023-06-17] MEDS ORDERED: BSS/LIDOCAINE/EPINEPHRINE 1 ML VIAL ONE (09:57)
[2023-06-17] MEDS: BRIMONIDINE 0.2% OPHTH DROPS 5 ML OPTH ONE (10:05)
[2023-06-17] MEDS: TRIAMCIN/MOXIFLOX OPHTHALMIC 0.6 ML VIAL IO ONE (10:06)
[2023-06-17] MEDS: PROPARACAINE 0.5% OPHTH DROPS 15 ML RIGHTEYE ONE (10:06)
[2023-06-17] MEDS: VANCOMYCIN OPHTH (TOPICAL) 10 MG/ML SYRINGE TOP ONE (10:06)
[2023-06-17] MEDS: EPINEPHrine 1 MG/ML AMP IR ONE (10:06)
[2023-06-17] MEDS: TIMOLOL 0.5% OPHTH DROPS OPTH ONE (10:06)
[2023-06-17] MEDS: BSS/LIDOCAINE/EPINEPHRINE 1 ML SYRINGE IO ONE (10:06)
--- NOTE | 2023-06-17 10:06 | ANESTHESIA ---
Pre-Anesthesia VS, & Labs - Diagnosis right cataract - Procedure right cataract extraction with IOL Vital Signs: Temp Pulse Resp BP Pulse Ox O2 Flow Rate 36.3 C L 60 13 147/88 H 100 06/17/23 08:45 06/17/23 08:45 06/17/23 08:45 06/17/23 08:45 06/17/23 08:45 Height: 6 ft Weight (kg): 75 kg Body Mass Index: 22.4 BMI Classification: Normal - NPO >8 hours Home Medications and Allergies metFORMIN [Glucophage] 500 mg PO DAILY 08/27/15 Methadone [Methadone Hcl] 15 mg PO DAILY 08/22/18 Abiraterone Acetate [Zytiga] 250 mg PO DAILY 03/03/21 Metoprolol Tartrate [Lopressor] 50 mg PO PRN PRN 03/19/21 polyethylene glycoL 3350 [Miralax] 17 gm PO DAILY 03/19/21 Megestrol Acetate 20 mg PO UD 09/23/22 dexAMETHasone [Decadron] 0.5 mg PO DAILY 10/19/22 Apixaban [Eliquis] 0.5 tab PO BID 04/21/23 Leuprolide [Lupron] 7.5 mg IM ONCE 04/21/23 Allergies/Adverse Reactions: Allergies Allergy/AdvReac Type Severity Reaction Status Date / Time No Known Drug Allergies Allergy Verified 06/17/23 08:58 Anes History & Medical History - Anesthetic History Anesthesia Complications: reports: No previous complications - Medical History Cardiovascular: reports: High cholesterol, Atrial fibrillation, Other (pacemaker) Pulmonary: reports: None Gastrointestinal: reports: None Urinary: reports: Other Neuro: reports: TIA (2015 x 2), Other (persistent RLS) Musculoskeletal: reports: None Endocrine/Autoimmune: reports: None Blood Disorders: reports: None Skin: reports: None Smoking Status: Never smoker - Surgical History Cardiothoracic: reports: Pacemaker Urologic: reports: Prostatic surgery Orthopedic: reports: Rotator cuff repair Dermatologic: reports: Skin cancer surgery Exam General: Alert, Oriented x3 Dental: WNL Mouth Opening: Greater than 4 Fingerbreadths Neck Mobility: Normal Mallampati classification: II Respiratory: Lungs clear Cardiovascular: Regular rate Plan Anesthesia Type: MAC Consent for Procedure(s) Verified and Reviewed: Yes Code Status: Attempt Resuscitation ASA classification: 3-Severe systemic disease Is this case an emergency?: No
[2023-06-17] MEDS ORDERED: fentaNYL 100 MCG/2 ML VIAL ONE (10:12)
[2023-06-17] MEDS ORDERED: MIDAZOLAM 2 MG/2 ML VIAL ONE (10:12)
[2023-06-17] MEDS: LACTATED RINGERS 700 ML IV ONE ×2 (10:29→11:00)
--- NOTE | 2023-06-17 10:38 | OPERATIVE REPORT ---
Operative Report - Other Other Information/Narrative: Date of Surgery: 06/17/23 Preop Dx: Visually significant cataract right eye. Cataract surgery was performed in the left eye on . Postop Dx: Same Procedure: Phacoemulsification with posterior chamber intraocular lens implant right eye Surgeon: Dr. Zachery Patel Anesthesia: Monitored anesthesia care Complications: None Operative Indications: This is a 77-year-old M with progressive vision loss in the right eye due to 2-3+ nuclear sclerotic, 2+ cortical, and vacuolar cataract. Best corrected visual acuity was 20/40 with glare to 20/100 vision in the right eye. Indications for surgery were: - Overall decrease in vision - Difficulty seeing words on a computer screen - Difficulty seeing street signs - Difficulty driving in low light or at night - Difficulty driving at night because of headlights from other vehicles - Difficulty with glare or bright lights in any situation The patient was consented at length concerning the risks and benefits of cataract surgery after which the patient expressed a desire to proceed with surgery. Operative Procedure: The patient was taken into OR#3 and placed under monitored anesthesia care. A surgical time-out was conducted confirming correct patient, correct procedure, and correct surgical site. The patient was given topical anesthesia and then prepped and draped in the usual sterile fashion. The eye was entered at the 6 and 3 oclock positions. Intracameral Shugarcaine was injected into the anterior chamber followed by a dispersive viscoelastic. A c ontinuous-tear curvilinear capsulorhexis was performed. The nucleus was hydrodissected and phacoemulsified. The cortex was evacuated using automated infusion and aspiration. A cohesive viscoelastic was injected into the capsular bag and a 16.5 diopter intraocular lens was inserted into the bag. Infusion and aspiration were used to evacuate the viscoelastic materials from the eye. The wounds were hydrated and the eye inflated to physiologic pressure using balanced salt solution. Approximately 0.25ml of a mixture of triamcinolone and moxifloxacin was injected trans-sclerally into the vitreous in the inferotemporal quadrant using a 30 gauge cannula. An additional 0.25ml of a mixture of triamcinolone and moxifloxacin was injected subconjunctivally in the superior quadrant for infection and inflammation prophylaxis. Wound integrity was checked with Weck-Allyssa sponges. The patient was taken from the operating room in good condition and given post-op instructions.
[2023-06-17 10:55] VITALS: BP 132/72
== END 2023-06-17 08:12 | disposition home or self-care (01) ==
LOC: SDS 08:11
PROVIDERS: ATTEND Ophthalmology
DX: H25.811 Combined forms of age-related cataract, right eye (principal); I48.91 Unspecified atrial fibrillation; Z95.0 Presence of cardiac pacemaker; Z98.42 Cataract extraction status, left eye
CPT/HCPCS: 66984; A9270; J3490; J7120

== ENCOUNTER 2023-09-06 14:20 | Outpatient (CLI) | payer MEDICARE, OTHER ==
[2023-09-06 20:15] LABS: BASOPHILS # (AUTO) 0.1 10^3/uL (0.0-0.1); BASOPHILS % (AUTO) 0.9 %; EOSINOPHILS # (AUTO) 0.1 10^3/uL (0.0-0.7); EOSINOPHILS % (AUTO) 2.4 %; HCT - HEMATOCRIT 30.4 % (42.0-52.0); HGB - HEMOGLOBIN 10.2 g/dL (14.0-18.0); LYMPHOCYTES # (AUTO) 1.1 10^3/uL (1.5-3.5); LYMPHOCYTES % (AUTO) 20.2 %; MEAN CORPUSCULAR HEMOGLOBIN 32.6 pg (27.0-31.0); MEAN CORPUSCULAR HGB CONC 33.6 g/dL (32.0-36.0); MEAN CORPUSCULAR VOLUME 97.1 fL (80.0-94.0); MEAN PLATELET VOLUME 10.9 fL (7.4-11.4); MONOCYTES # (AUTO) 0.5 10^3/uL (0.0-1.0); MONOCYTES % (AUTO) 9.6 %; NEUTROPHILS # (AUTO) 3.6 10^3/uL (1.5-6.6); NEUTROPHILS % (AUTO) 66.5 %; PLT - PLATELET COUNT 202 10^3/uL (130-450); RED BLOOD COUNT 3.13 10^6/uL (4.70-6.10); RED CELL DISTRIBUTION WIDTH 14.6 % (12.0-15.0); WHITE BLOOD COUNT 5.3 x10^3/uL (4.8-10.8)
== END 2023-09-06 14:21 | disposition home or self-care (01) ==
LOC: LAB.S 14:20
PROVIDERS: ATTEND Urology
DX: N50.89 Other specified disorders of the male genital organs (principal)
CPT/HCPCS: 36415; 82105; 83615; 84702; 85025

== ENCOUNTER 2023-10-11 11:07 | Outpatient (CLI) | payer MEDICARE, OTHER ==
[2023-10-11 15:12] LABS: BASOPHILS # (AUTO) 0.1 10^3/uL (0.0-0.1); EOSINOPHILS # (AUTO) 0.2 10^3/uL (0.0-0.7); HCT - HEMATOCRIT 30.6 % (42.0-52.0); LYMPHOCYTES # (AUTO) 1.7 10^3/uL (1.5-3.5); LYMPHOCYTES % (AUTO) 23.4 %; MEAN CORPUSCULAR HEMOGLOBIN 31.5 pg (27.0-31.0); MEAN CORPUSCULAR HGB CONC 32.7 g/dL (32.0-36.0); MEAN CORPUSCULAR VOLUME 96.5 fL (80.0-94.0); MEAN PLATELET VOLUME 10.8 fL (7.4-11.4); MONOCYTES # (AUTO) 0.6 10^3/uL (0.0-1.0); MONOCYTES % (AUTO) 7.9 %; NEUTROPHILS # (AUTO) 4.6 10^3/uL (1.5-6.6); NEUTROPHILS % (AUTO) 64.4 %; PLT - PLATELET COUNT 237 10^3/uL (130-450); RED BLOOD COUNT 3.17 10^6/uL (4.70-6.10); RED CELL DISTRIBUTION WIDTH 14.1 % (12.0-15.0); WHITE BLOOD COUNT 7.1 x10^3/uL (4.8-10.8)
== END 2023-10-11 11:08 | disposition home or self-care (01) ==
LOC: LAB.S 11:07
PROVIDERS: ATTEND Urology
DX: N50.89 Other specified disorders of the male genital organs (principal)
CPT/HCPCS: 36415; 81599; 82105; 83615; 85025

== ENCOUNTER 2024-06-30 15:15 | Observation (INO) ==
--- OUTSIDE RECORDS SUMMARY | 2024-06-30 15:25 | EXTERNAL MEDICAL SUMMARY RPT | Continuity of Care Document ---
Author Organization [place] Address [address] [place] [id number] Phone Problems date description facility 2024-02-07 16:18 Malignant neoplasm of prostate [facility] 2024-02-07 16:[address] [facility] 2024-04-03 14:53 Malignant neoplasm of prostate [facility] 2024-04-03 14:[address] [facility] 2024-04-03 14:54 Malignant neoplasm of prostate [facility] 2024-04-03 14:[address] [facility] 2024-04-03 15:09 Malignant neoplasm of prostate [facility] 2024-04-03 15:09 Secondary malignant neoplasm of bone [facility] 2024-04-03 15:[address] [facility] 2024-04-03 15:10 Malignant neoplasm of prostate [facility] 2024-04-03 15:[address] [facility] 2024-04-03 15:48 Malignant neoplasm of prostate [facility] 2024-04-03 15:48 Anemia, unspecified [facility] 2024-04-03 15:48 Disorder of kidney and ureter, unspecified [facility] 2024-04-03 15:48 Dysuria [facility] 2024-04-03 15:[address] [facility] 2024-04-03 16:32 Malignant neoplasm of prostate [facility] 2024-04-03 16:32 Dysuria [facility] 2024-04-06 07:43 Malignant neoplasm of prostate [facility] 2024-04-06 07:43 Dysuria [facility] 2024-04-06 12:01 Malignant neoplasm of prostate [facility] 2024-04-08 00:02 Malignant neoplasm of prostate [facility] 2024-04-10 13:30 Malignant neoplasm of prostate [facility] 2024-04-10 13:30 [facility] of [facility]ter, [facility] 2024-04-11 00:02 Malignant neoplasm of prostate [facility] 2024-04-11 00:02 [facility] of [facility]ter, [facility] 2024-05-12 10:51 Anemia, unspecified [facility] 2024-05-15 07:37 Anemia, unspecified [facility] 2024-05-16 16:18 Malignant neoplasm of prostate [facility] 2024-05-16 16:[address] [facility] 2024-05-16 16:29 Malignant neoplasm of prostate [facility] 2024-05-16 16:[address] [facility] 2024-05-16 16:30 Malignant neoplasm of prostate [facility] 2024-05-16 16:[address] [facility] 2024-05-17 00:04 Malignant neoplasm of prostate [facility] 2024-05-17 00:[address] [facility] 2024-05-22 13:17 Malignant neoplasm of prostate [facility] 2024-05-22 13:17 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 [facility] 2024-05-22 13:17 Anemia, unspecified [facility] 2024-05-22 13:17 Aneurysm of other specified art eries [facility] 2024-05-22 13:17 Other specified soft tissue dis orders [facility] 2024-05-22 13:17 Fracture of other pa rts of pelvis, subsequent encounter for fracture with delayed healing [facility] 2024-05-22 13:17 Encounter for genera l adult medical examination without abnormal findings [facility] 2024-05-22 13:[address] [facility] 2024-05-22 13:17 Encounter for antineoplastic ch emotherapy [facility] 2024-05-22 13:20 [facility] 2024-06-23 09:48 [facility] 2024-06-[facility] 09:[address] [facility] 10:15 [facility]ignant ne[facility] 2024-06-23 10:[address] [facility] 2024-06-23 10:43 Cough, unspecified [facility] 2024-06-23 11:00 Cough, unspecified [facility] 2024-06-23 12:02 Cough, unspecified [facility] 2024-06-23 12:02 COVID-19 [facility] 2024-06-23 15:27 Cough, unspecified [facility] 2024-06-24 00:02 Cough, unspecified [facility] 2024-06-24 00:05 Malignant neoplasm of prostate [facility] 2024-06-24 00:05 Hormone resistant malignancy [facility] Results/Labs test date facility value unit notes Result panel 1 BASOPHILS # (AUTO) 2024-03-30 09:25 [facility] 0.0 10 3/ul (missing) NRBC ABSOLUTE COUNT (AUTO) 2024-03-30 09:25 [facility] 0.07 x10 3/ul (missing) EOSINOPHILS # (AUTO) 2024-03-30 09:25 [facility] 0.1 10 3/ul (missing) MONOCYTES # (AUTO) 2024-03-30 09:25 [facility] 0.5 10 3/ul (missing) RBC MORPHOLOGY (MULTIPLE) 2024-03-30 09:25 [facility] 1+ BASO STIPPLING (missing ) (missing) RBC MORPHOLOGY (MULTIPLE) 2024-03-30 09:25 [facility] 1+ HYPOCHROMASIA (missing ) (missing) RBC MORPHOLOGY (MULTIPLE) 2024-03-30 09:25 [facility] 1+ MACROCYTOSIS (missing ) (missing) RBC MORPHOLOGY (MULTIPLE) 2024-03-30 09:25 [facility] 1+ MICROCYTOSIS (missing ) (missing) RBC MORPHOLOGY (MULTIPLE) 2024-03-30 09:25 [facility] 1+ OVALOCYTES (missing ) (missing) NUCLEATED RED BLOOD CELLS AUTO 2024-03-30 09:25 [facility] 1.4 /100wbc (missing) LYMPHOCYTES # (AUTO) 2024-03-30 09:25 [facility] 1.5 10 3/ul (missing) MEAN PLATELET VOLUME 2024-03-30 09:25 [facility] 10.6 fl (missing) MEAN CORPUSCULAR VOLUME 2024-03-30 09:25 [facility] 108.1 fl (missing) RED BLOOD COUNT 2024-03-30 09:25 [facility] 2.48 10 6/ul (missing) NEUTROPHILS # (AUTO) 2024-03-30 09:25 [facility] 2.8 10 3/ul (missing) PLT - PLATELET COUNT 2024-03-30 09:25 [facility] 203 10 3/ul (missing) HCT - HEMATOCRIT 2024-03-30 09:25 [facility] 26.8 % (missing) PSA TOTAL 2024-03-30 09:25 [facility] 27.892 ng/ml [facility] uses a WHO cutoff value of 2.0 ng/mL. RBC MORPHOLOGY (MULTIPLE) 2024-03-30 09:25 [facility] 3+ ANISOCYTOSIS (missing ) (missing) MEAN CORPUSCULAR HGB CONC 2024-03-30 09:25 [facility] 34.3 g/dl (missing) MEAN CORPUSCULAR HEMOGLOBIN 2024-03-30 09:25 [facility] 37.1 pg (missing) WHITE BLOOD COUNT 2024-03-30 09: [facility] 5.0 x10 3/ul (missing) HGB - HEMOGLOBIN 2024-03-30 09:25 [facility] 9.2 g/dl (missing) SLIDE REVIEW? 2024-03-30 09:25 [facility] Indicated (missing ) (missing) PLATELET ESTIMATE, MANUAL 2024-03-30:25 [facility] NORMAL (130-450,000) (missing ) (missing) PLATELET MORPHOLOGY 2024-03-30 09:25 [facility] NORMAL APPEARANCE (missing ) (missing) RED CELL DISTRIBUTION WIDTH 2024-03-30 09:25 [facility] TNP % (missing) Result panel 2 BILIRUBIN,TOTAL 2024-04-03 16:37 [facility] 1.0 mg /dl As of September 2022 testing method has changed, this may include reference ranges. CREATININE 2024-04-03 16:37 [facility] 1.1 mg/dl As of September 2022 testing method has changed, this may include reference ranges. ALBUMIN/GLOBULIN RATIO 2024-04-03 16:37 [facility] 1.8 (missing) (missing) GLUCOSE 2024-04-03 16:37 [facility] 100 mg/dl As of September 2022 testing method has changed, this may include reference ranges. CHLORIDE 2024-04-03 16:37 [facility] 103 mmol/l As of September 2022 testing method has changed, this may include reference ranges. SODIUM 2024-04-03 16:37 [facility] 136 mmol/l Unknown As of September 2022 testing method has changed, this may include reference ranges. GLOBULIN 2024-04-03 16:37 [facility] 2.5 g/dl (missing) AST ASPARTATE AMINOTRANSFERASE 2024-04-03 16:37 [facility] 23 iu/l As of September 2022 testing method has changed, this may include reference ranges. BUN - BLOOD UREA NITROGEN 2024-04-03 16:37 [facility] 24 mg/dl As of Sep testing method has changed, this may include reference ranges. ALT ALANINE AMINOTRANSFERASE 2024-04-03 16:37 [facility] 25 iu/l As of September 2022 testing method has changed, this may include reference ranges. ANION GAP 2024-04-03 16:37 [facility] 3.0 (missing ) (missing) CARBON DIOXIDE - CO2 2024-04-03 16:37 [facility] 30 mmol/l As of September 2022 testing method has changed, this may include reference ranges. POTASSIUM 2024-04-03 16:37 [facility] 4.3 mmol/l As of September 2022 testing method has changed, this may include reference ranges. ALBUMIN 2024-04-03 16:37 [facility] 4.4 g/dl As of September 2022 testing method has changed, this may include reference ranges. TOTAL PROTEIN 2024-04-03 16:37 [facility] 6.9 g/dl As of September 2022 testing method has changed, this may include reference ranges. GFR - MDRD 2024-04-03 16:37 [facility] 64 (vipul long) Social History date description facility
[2024-06-30 16:14] LABS: BASOPHILS % (AUTO) 0.2 %; EOSINOPHILS % (AUTO) 0.2 %; HGB - HEMOGLOBIN 8.4 g/dL (14.0-18.0); LYMPHOCYTES # (AUTO) 0.4 10^3/uL (1.5-3.5); LYMPHOCYTES % (AUTO) 5.9 %; MEAN CORPUSCULAR HEMOGLOBIN 40.2 pg (27.0-31.0); MEAN CORPUSCULAR VOLUME 114.8 fL (80.0-94.0); MEAN PLATELET VOLUME 9.8 fL (7.4-11.4); MONOCYTES # (AUTO) 0.1 10^3/uL (0.0-1.0); MONOCYTES % (AUTO) 1.5 %; NEUTROPHILS # (AUTO) 5.4 10^3/uL (1.5-6.6); NEUTROPHILS % (AUTO) 91.4 %; NRBC ABSOLUTE COUNT (AUTO) 0.02 x10^3/uL; NUCLEATED RED BLOOD CELLS AUTO 0.3 /100WBC; PLT - PLATELET COUNT 147 10^3/uL (130-450); RED BLOOD COUNT 2.09 10^6/uL (4.70-6.10); RED CELL DISTRIBUTION WIDTH 16.1 % (12.0-15.0); WHITE BLOOD COUNT 5.9 x10^3/uL (4.8-10.8)
[2024-06-30 16:20] LABS: SLIDE REVIEW? Indicated
--- NOTE | 2024-06-30 16:20 | XRAY Report ---
PROCEDURE: XR Chest 1V INDICATIONS: syncope, covid TECHNIQUE: One view of the chest was acquired. COMPARISON: 06/23/2024 FINDINGS AND IMPRESSION: Mild to moderate interstitial prominence likely atypical infection versus edema. Consider future imag ing surveillance to assess for resolution. No drainable effusions. Heart size is at the upper limit of normal. There are cardiac electrode leads. Degenerative osseous changes. Reviewed by: Korey Mahajan MD on 06/30/2024 4:18 PM PDT Approved by: Korey Mahajan MD on 06/30/2024 4:18 PM PDT Station ID: [id number]
--- NOTE | 2024-06-30 16:22 | ED Physician Documentation ---
History of Present Illness Stated complaint Stated Complaint: C+, WEAKNESS Chief complaint Chief Complaint: Resp History obtained from History obtained from: Patient History of Present Illness Pain level max: 0 Pain level now: 0 Additonal information Additional information: 79-year-old male history of stage IV prostate cancer currently on chemotherapy presents to the emergency department stating that he went outside for a walk today and is unsure what happened but was found on the ground by his neighbors with a small amount of bleeding from the nose. Family states that he tested positive for COVID about a week ago and has had fevers, cough and congestion since that time. Patient is unable to give any history about what happened t leticia. He does not have any complaints currently. Family states that he has had confusion since being on chemotherapy but increased confusion since being diagnosed with COVID. Review of Systems Constitutional Reports: Fever Cardiovascular Denies: chest pain or palpitations Respiratory Reports: Cough Gastrointestinal Denies: Vomiting Integumentary/Breast Denies: Rash Meds/Allgy Home Medications Ambulatory Orders Medication Instructions Recorded Confirmed acetaminophen 325 mg tablet 650 mg (2 x 325 mg) PO Q4HR PRN 11/19/15 06/23/24 Pain 1 to 4 #0 tabs methadone 5 mg tablet 15 mg PO DAILY 08/22/18 06/23/24 metoprolol tartrate 50 mg tablet 50 mg PO PRN PRN Cardiac Arrhythmia 03/19/21 06/23/24 polyethylene glycol 3350 17 gram 17 g PO DAILY 03/19/21 06/23/24 oral powder packet ondansetron HCl 8 mg tablet 8 mg PO TID 30 days #90 tabs 10/18/23 06/23/24 dexamethasone 0.5 mg/5 mL oral 0.5 mg PO DAILY 11/29/23 06/23/24 elixir olaparib 150 mg tablet (Lynparza) 300 mg (2 x 150 mg) PO BID #60 tabs 04/26/24 06/23/24 azithromycin 250 mg tablet See Rx Instructions PO .COMPLEX #6 06/23/24 06/23/24 tabs abiraterone 250 mg tablet 250 mg PO DAILY #30 tabs 06/29/24 Allergies Allergies Allergy/AdvReac Type Severity Reaction Status Date / Time No Known Drug Allergies Allergy Verified 06/30/24 15:45 PFSH Active Problems All Active Problems (Updated 06/30/24 @ 17:35 by Abdelrahman Vásquez MD) Acute dehydration (Acute) Atypical pneumonia (Acute) Closed fracture nasal bone (Acute) Syncope and collapse (Acute) COVID (Acute) Cough (Acute) CKD (chronic kidney disease) stage 3, GFR 30-59 ml/min (Acute) Renal dysfunction (Acute) Dysuria (Acute) correction (current) use of other agents affecting estrogen receptors and estrogen levels (Acute) Screening for osteoporosis (Acute) Splenic artery aneurysm (Acute) Pelvic fracture (Acute) Healthcare maintenance (Acute) Genetic counseling and testing (Acute) Anemia (Acute) Leg swelling (Acute) Encounter for antineoplastic chemotherapy (Acute) 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 Relationship: Do you feel safe in your home environment?: Yes Suffered physical, verbal, emotional, or financial abuse?: No History of Abuse: No ETOH Use: Wine Frequency: Occasional POLST Patient has POLST: No Exam Exam Vital Signs: Vital Signs x48h Temp Pulse Resp BP Pulse Ox 06/30/24 17:29 37.6 C 77 15 106/55 L 96 06/30/24 17:27 37.6 C 06/30/24 15:24 39.2 C H 85 18 105/70 95 Constitutional normal general appearance and no apparent distress HENMT normocephalic, head/scalp atraumatic, EACs normal, TMs normal bilaterally, oral mucous membranes normal and oropharynx normal Tenderness to palpation over the nasal bridge with mild bruising. No septal hematomas. No active bleeding Eyes PERRL and EOMs intact bilaterally Neck/C-Spine trachea midline and cervical spine nontender Chest inspection of chest normal and palpation of chest normal Respiratory breath sounds equal bilaterally and normal respiratory effort Cardiovascular normal heart rate noted and regular rhythm noted Gastrointestinal abdomen soft to palpation, nontender to palpation and nondistended Genitourinary no CVA tenderness Back/Pelvis no thoracic spine tenderness and no lumbar spine tenderness Extremities normal to inspection, full ROM and no deformity Neurology Patient is alert, noted to person and place, not to time or situation. Has difficulty following commands Psychiatry Patient is alert, noted to person and place, not to time or situation. Has difficulty following commands Skin skin color normal Results Vitals Vitals: Vital Signs - 24 hr 06/30/24 15:24 06/30/24 16:48 06/30/24 17:27 Temperature 39.2 C H 37.6 C Temperature Source Oral Pulse Rate 85 Respiratory Rate 18 Blood Pressure 105/70 O2 Saturation 95 O2 Source Room air Pain Intensity 0 0 0 06/30/24 17:29 Temperature 37.6 C Temperature Source Oral Pulse Rate 77 Respiratory Rate 15 Blood Pressure 106/55 L O2 Saturation 96 O2 Source Room air Pain Intensity 0 Oxygen O2 Source Room air EKG (time done) 1611: EKG releavant findings:: EKG personally interpreted by author of this note. Relevant findings are: Rate: Other (74 bpm. Possible A-fib versus sinus arrhythmia with artifact and tremors. Normal QRS. Normal axis. Normal ST segments) Labs Labs: Laboratory Tests 06/30/24 16:06 WBC 5.9 RBC 2.09 L Hgb 8.4 L Hct 24.0 L MCV 114.8 H MCH 40.2 H MCHC 35.0 RDW 16.1 H Plt Count 147 MPV 9.8 Neut # (Auto) 5.4 Lymph # (Auto) 0.4 L [place] # (Auto) 0.1 Eos # (Auto) 0.0 Baso # (Auto) 0.0 Absolute Nucleated RBC 0.02 Nucleated RBC % 0.3 Manual Slide Review Indicated Platelet Estimate NORMAL (130-450,000) Platelet Morphology NORMAL APPEARANCE RBC Morph Micro Appear 2+ MACROCYTOSIS Sodium 133 L Potassium 4.0 Chloride 102 Carbon Dioxide 25 Anion Gap 6.0 BUN 28 H Creatinine 1.1 Estimated GFR (MDRD) 64 L Glucose 80 Lactic Acid 0.5 Calcium 8.6 Phosphorus 3.0 Magnesium 2.0 Total Bilirubin 0.7 AST 23 ALT 18 Alkaline Phosphatase 66 Troponin I High Sens 48.4 H* Total Protein 5.7 L Albumin 3.3 Globulin 2.4 Albumin/Globulin Ratio 1.4 Lipase 12 Rads (name of study) Head CT, maxillofacial CT, cervical spine CT, chest x-ray: Relevant Findings:: Final report received PD Medical Decision Making ED course Complexity details: reviewed results, re-evaluated patient, considered differential and d/w patient ED course: 79-year-old male recent positive COVID test continues to have cough and has a fever here today, Tmax 39.1. Given Tylenol for this. He is acutely confused and does not recall what happened other than he was found on the ground. Unclear if this was due to a fall or syncope. Troponin is mildly elevated but does not have any chest pain, do not suspect acute coronary syndrome. No shortness of breath. No hypoxia. Started on Rocephin and azithromycin for possible secondary infection and atypical pneumonia. Given IV fluids. Given the confusion, syncope versus fall and infection, will place in observation. Discussed the case with the hospitalist who accepts. No acute findings on head CT or cervical spine CT. Maxillofacial CT shows nasal bone fractures, did not require any intervention for this. This document was made in part using voice recognition software. While efforts are made to proofread this document, sound alike and grammatical errors may occur. Discharge Plan Discharge Patient Disposition: ED Place in Observation Condition: Stable Clinical Impression: Syncope and collapse, Atypical pneumonia, Acute dehydration Closed fracture nasal bone Qualifiers: Encounter type: initial encounter Qualified Code(s): S02.2XXA - Fracture of nasal bones, initial encounter for closed fracture
[2024-06-30 16:36] LABS: ALBUMIN 3.3 g/dL (3.2-5.5); ALBUMIN/GLOBULIN RATIO 1.4 (1.0-2.2); BILIRUBIN,TOTAL 0.7 mg/dL (0.2-1.0); CALCIUM 8.6 mg/dL (8.5-10.3); CREATININE 1.1 mg/dL (0.6-1.3); TOTAL PROTEIN 5.7 g/dL (6.4-8.9)
[2024-06-30 16:37] LABS: TROPONIN I HIGH SENSITIVITY 48.4 ng/L (2.3-19.7)
--- NOTE | 2024-06-30 16:46 | CT Report ---
PROCEDURE: CT Head WO INDICATIONS: syncope vs fall, aloc TECHNIQUE: Noncontrast 4.5 mm thick angled axial sections acquired from the foramen magnum to the vertex. For r adiation dose reduction, the following was used: automated exposure control, adjustment of mA and/or kV according to patient size. COMPARISON: 10/20/2014. FINDINGS: Image quality: Excellent. CSF spaces: Basal cisterns are patent. No extra-axial fluid collections. Ventricles are normal in size and shape. Brain: No midline shift. No intracranial masses or hemorrhage. De La Paz-white matter interface is norm al. Age-related global volume loss and chronic microvascular ischemic changes. Intracranial atheroscl erotic vascular calcifications. Skull and face: Calvarium and visualized facial bones are intact, without suspicious lesions. Bilate ral lens replacements. Sinuses: Visualized sinuses and mastoids are clear. IMPRESSION: No acute intracranial pathology. Reviewed by: Mark Perez MD on 06/30/2024 4:44 PM PDT Approved by: Mark Perez MD on 06/30/2024 4:44 PM PDT Station ID: [id number]
[2024-06-30] MEDS: ACETAMINOPHEN 325 MG TABLET PO STA (16:48)
[2024-06-30] MEDS: SODIUM CHLORIDE 0.9% 1,000 ML IV STA ×2 (16:49→17:34)
--- NOTE | 2024-06-30 17:08 | CT Report ---
PROCEDURE: CT Maxillofacial WO INDICATIONS: fall, facial pain TECHNIQUE: Noncontrast 1.5 mm thick axial images acquired from the mandible through the frontal sinuses, with co carissa and sagittal reformatting. For radiation dose reduction, the following was used: automated ex posure control, adjustment of mA and/or kV according to patient size. COMPARISON: None. FINDINGS: Image quality: Excellent. Bones and teeth: Acute slightly displaced anterior nasal bone fractures are seen. Mild nasal septal d eviation to the right is seen anteriorly. Orbital lechuga are intact. Sinus lechuga show no fracture or deformity. Nasal bones and septum are intact. Visualized portions of the mandible demonstrate no fr actures or subluxation. Zygomatic arches are intact. Pterygoid plates are intact. Visualized porti ons of the skull base and auditory canals are intact. Sinuses: Mild mucosal thickening in bilateral ethmoid sinuses is seen.. Mastoid air cells are aerate d. Soft tissues: Soft tissue swelling over nasal bone fracture sites is seen. No discrete drainable flui d collection.. No enlarged lymph nodes. No soft tissue lacerations or debris. Vascular: Visualized vascular structures appear normal in the absence of contrast. Bony vascular fo ramina and canals are intact. IMPRESSION: 1. Slightly displaced bilateral anterior nasal bone fractures with overlying soft tissue swelling. Mi ld nasal septal deviation to the right. 2. Mild lateral ethmoid sinusitis. 3. No other facial bone fracture. Bilateral orbital lechuga and orbital globes are intact. Reviewed by: Skip De Leon MD on 06/30/2024 5:07 PM PDT Approved by: Skip De Leon MD on 06/30/2024 5:07 PM PDT Station ID: [id number]
--- NOTE | 2024-06-30 17:09 | CT Report ---
PROCEDURE: CT Cervical Spine WO INDICATIONS: fall, pain TECHNIQUE: Noncontrast 3 mm thick sections acquired from the skull base to the T4 level. Sagittal and coronal r eformats were then constructed. For radiation dose reduction, the following was used: automated exp osure control, adjustment of mA and/or kV according to patient size. COMPARISON: None. FINDINGS: Image quality: Excellent. Bones: No fractures or dislocations. Degenerative endplate changes, loss of disc height and bilater al uncovertebral hypertrophic changes are seen with dorsal disc osteophyte complex formation at C4-5 and C6-7 levels causing [id number] central canal stenosis and bilateral neural foraminal narrow ing. Visualized superior ribs are intact. Soft tissues: Prevertebral soft tissues are normal in thickness. No paravertebral hematomas. No ap ical pneumothoraces. IMPRESSION: No acute, displaced fracture or traumatic subluxation. Multilevel spondylitic changes throughout cervical spine. Reviewed by: Skip De Leon MD on 06/30/2024 5:07 PM PDT Approved by: Skip De Leon MD on 06/30/2024 5:07 PM PDT Station ID: [id number]
[2024-06-30 17:16] LABS: PLATELET ESTIMATE, MANUAL NORMAL (130-450,000) (NORMAL); PLATELET MORPHOLOGY NORMAL APPEARANCE (NORMAL); RBC MORPHOLOGY (MULTIPLE) 2+ MACROCYTOSIS (NORMAL)
[2024-06-30] MEDS: cefTRIAXone 1 GM VIAL IVP STA (17:34)
[2024-06-30] MEDS: AZITHROMYCIN INJ 500 MG in SODIUM CHLORIDE 0.9% 250 ML IV STA (17:50)
--- NOTE | 2024-06-30 18:42 | HISTORY & PHYSICAL EXAMINATION ---
Chief Complaint Chief Complaint Chief Complaint: SOB while walking History of Present Illness Admitted From Admitted From:: home History Obtained From Records Reviewed: [facility] note 06/23 History obtained from: patient and daughter History of Present Illness HPI Comment/Other: Found down on the [address] in the neighborhood. 79 yo male who has a hx of metastatic prostate cancer, and was dx with covid about a week ago presents to the ED with a presumed syncopal episode earlier today. He likes to take a walk every day, and today, instead of waiting for his daughter, he went alone. He thinks that he got too hot while walking in the sun and fell down in the road. he was picked up by neighbors and came ot the ED with his daughter. He and his have been isolating due to their illness, but daughter says that he has been slighly more confused since he has been sick. He is vague with regards to details of his episode. He states that he also has a hx of a fib, not anticoagulated due to history of "brain bleed". he is not able to tell me more about this. He cannot tell me if it was related to trauma, or a hypertensive hemorrhage. denies crainiotomy. tells me "they watched it". He has been sick for about 10 days with a cough, was sick several days before. they both have now been dx with covid. no paxlovid given,as sx present for too long prior to seeking healthcare. Also fever at triage today 39.2 States that he wants to be full code. his is his surrogate medical decision maker. Meds/Allgy Home Medications Ambulatory Orders Medication Instructions Recorded Confirmed acetaminophen 325 mg tablet 650 mg (2 x 325 mg) PO Q4HR PRN 11/19/15 06/23/24 Pain 1 to 4 #0 tabs methadone 5 mg tablet 15 mg PO DAILY 08/22/18 06/23/24 metoprolol tartrate 50 mg tablet 50 mg PO PRN PRN Cardiac Arrhythmia 03/19/21 06/23/24 polyethylene glycol 3350 17 gram 17 g PO DAILY 03/19/21 06/23/24 oral powder packet ondansetron HCl 8 mg tablet 8 mg PO TID 30 days #90 tabs 10/18/23 06/23/24 dexamethasone 0.5 mg/5 mL oral 0.5 mg PO DAILY 11/29/23 06/23/24 elixir olaparib 150 mg tablet (Lynparza) 300 mg (2 x 150 mg) PO BID #60 tabs 04/26/24 06/23/24 azithromycin 250 mg tablet See Rx Instructions PO .COMPLEX #6 06/23/24 06/23/24 tabs abiraterone 250 mg tablet 250 mg PO DAILY #30 tabs 06/29/24 Allergies Allergies Allergy/AdvReac Type Severity Reaction Status Date / Time No Known Drug Allergies Allergy Verified 06/30/24 15:45 PFSH Active Problems All Active Problems (Updated 06/30/24 @ 17:35 by Abdelrahman Vásquez MD) Acute dehydration (Acute) Atypical pneumonia (Acute) Closed fracture nasal bone (Acute) Syncope and collapse (Acute) COVID (Acute) Cough (Acute) CKD (chronic kidney disease) stage 3, GFR 30-59 ml/min (Acute) Renal dysfunction (Acute) Dysuria (Acute) intermediate (current) use of other agents affecting estrogen receptors and estrogen levels (Acute) Screening for osteoporosis (Acute) Splenic artery aneurysm (Acute) Pelvic fracture (Acute) Healthcare maintenance (Acute) Genetic counseling and testing (Acute) Anemia (Acute) Leg swelling (Acute) Encounter for antineoplastic chemotherapy (Acute) 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 Relationship: Level: Assisted Home Mobility Equipment: Cane Do you feel safe in your home environment?: Yes Suffered physical, verbal, emotional, or financial abuse?: No History of Abuse: No ETOH Use: Wine Frequency: Occasional POLST Patient has POLST: No Review of Systems Status of ROS: 10 or more systems reviewed and unremarkable except as noted in history and below Constitutional Reports: Fatigue, Fever, Malaise and Diaphoresis Eyes Denies: Change in vision Ears, nose, mouth, and throat Reports: Nasal congestion and Throat pain Cardiovascular Reports: swelling of feet/ankles (has been chronic on palliative chemo for prostate cancer. ); Denies: Irregular heart rate, chest pain or palpitations Respiratory Reports: Cough and Wheezing Gastrointestinal Reports: Poor appetite; Denies: Abdominal pain, Abdominal distention, Nausea or Vomiting Genitourinary Reports: Urinary frequency Integumentary/Breast Denies: Rash Endocrine Reports: Fatigue Hematologic/Lymphatic Reports: Easy bruising (cancer meds causing this) Allergic/Immunologic Reports: Wheezing Prior Level of Functionality: lives at home with . walks without assistance, daughter lives nearby Exam Exam Vital Signs: Vital Signs x48h Temp Pulse Resp BP BP Pulse Ox 06/30/24 20:42 36.1 C L 17 125/60 95 06/30/24 19:32 37.3 C 16 101/61 94 06/30/24 17:29 37.6 C 77 15 106/55 L 96 06/30/24 17:27 37.6 C 06/30/24 15:24 39.2 C H 85 18 105/70 95 Constitutional normal general appearance, no apparent distress and average body habitus HENMT normocephalic, head/scalp traumatic (abrasion left side of forehead), nasal mucous membranes normal and external nose normal Eyes PERRL and conjunctivae normal Neck/C-Spine visual inspection normal Lymph no lymphadenopathy noted Chest inspection of chest normal Respiratory breath sounds equal bilaterally, normal respiratory effort, clear to auscultation bilaterally, no wheezes and no use of accessory muscles Cardiovascular normal heart rate noted irregularly irreg Gastrointestinal abdomen normal to inspection and abdomen soft to palpation Extremities normal to inspection 2+ pedal edema to mid calf. Neurology no movement abnormality noted, no focal motor deficit noted, no sensory deficits noted, speech normal and GCS 15 Psychiatry mental status grossly normal, oriented x3 and cooperative slightly slowed mentation Skin scattered brusing and abrasions,in various stages of healing Conclusion/Plan Problem List (1) Syncope and collapse: Plan: he has a history of pacemaker. He tells me this is not an AICD. he sees cardiology annually. has a fib, no anticoagulation due to history of intracranial bleeding. He cannot tell me the details of his episide,but thinks he was walking in the sun and got too hot. he had had normal heart rate and blood pressure. he does not exhibit any neurological deficit aside from some mid confusion which could be related to his infection. he is oriented x 3, ambulatory with out extremity weakness. Ct head is negative. EKG shows a fib at a rate of [address] him on telemetry. no echo available here for 5 more days, will need that as OP if symptoms persist. discussed w Dr Vásquez in ED. decision was made to admit this patient for telemetry overnight in light of his syncope. most likely due to over exertion and dehydration in the setting of acute viral illness. (2) Atypical pneumonia: Plan: Mild to moderate interstitial prominence on chest x ray in the setting of cough for about 10 days and postivie covid test a week ago. he is not hypoxic, but is febrile and feeling poorly. Took a walk this afternoon and collapsed. I will treat for CAP with rocephin and azithromycin (5d and 3 days respectively). no utility in antivirals at this time, has been sick for too long. (3) COVID: Plan: as above. no need for remdesivir, as I do not think it will help. has been positive for a week. no hypoxia, no indication for steroids. (4) Metastatic castration-resistant adenocarcinoma of prostate: Plan: He is currently on treatment with oncology here. Plan I have spent 75 minutes in the care of this patient today. This includes time [id number], review and ordering of diagnostic imaging and laboratory studies and consultation with other providers. Monitoring the patient's signs symptoms, evaluation of medication effectiveness and patient's response to treatment. Lab Results 06/30/24 16:06 06/30/24 16:06
[2024-06-30] MEDS ORDERED: oxyCODONE 5 MG TABLET PO PRN (19:31)
[2024-06-30] MEDS ORDERED: IBUPROFEN 400 MG TABLET PO PRN (19:31)
[2024-06-30] MEDS ORDERED: SODIUM CHLORIDE FLUSH 0.9% 10 ML SYRINGE IVP PRN (19:31)
[2024-06-30] MEDS ORDERED: ACETAMINOPHEN 325 MG TABLET PO PRN (19:31)
[2024-06-30] MEDS: METHADONE 5 MG TABLET PO SCH (20:40)
[2024-07-01] MEDS: SODIUM CHLORIDE FLUSH 0.9% 10 ML SYRINGE IVP SCH (01:10)
[2024-07-01 06:00] LABS: BASOPHILS % (AUTO) 0.2 %; EOSINOPHILS % (AUTO) 0.4 %; HCT - HEMATOCRIT 24.4 % (42.0-52.0); HGB - HEMOGLOBIN 8.3 g/dL (14.0-18.0); LYMPHOCYTES % (AUTO) 9.8 %; MEAN CORPUSCULAR HEMOGLOBIN 39.9 pg (27.0-31.0); MEAN CORPUSCULAR VOLUME 117.3 fL (80.0-94.0); MEAN PLATELET VOLUME 10.2 fL (7.4-11.4); MONOCYTES % (AUTO) 1.3 %; NEUTROPHILS % (AUTO) 87.4 %; PLT - PLATELET COUNT 138 10^3/uL (130-450); RED BLOOD COUNT 2.08 10^6/uL (4.70-6.10); RED CELL DISTRIBUTION WIDTH 16.4 % (12.0-15.0); WHITE BLOOD COUNT 5.4 x10^3/uL (4.8-10.8)
[2024-07-01 06:09] LABS: CALCIUM 8.1 mg/dL (8.5-10.3); CREATININE 0.8 mg/dL (0.6-1.3); POTASSIUM 3.9 mmol/L (3.5-4.5)
[2024-07-01 06:10] LABS: SLIDE REVIEW? Indicated
[2024-07-01 06:11] LABS: ABNORMAL LYMPHS % (MANUAL) 0 %; BAND NEUTROPHILS % (MANUAL) 0 %
[2024-07-01 06:40] LABS: LYMPHOCYTES % (MANUAL) 18 %; MONOCYTES # (MANUAL) 0.1 10^3/uL (0.0-1.0); NEUTROPHILS # (MANUAL) 4.4 10^3/uL (1.5-6.6); PLATELET ESTIMATE, MANUAL NORMAL (130-450,000) (NORMAL); PLATELET MORPHOLOGY NORMAL APPEARANCE (NORMAL); RBC MORPHOLOGY (MULTIPLE) 2+ MACROCYTOSIS (NORMAL)
[2024-07-01 06:41] LABS: DIFFERENTIAL COMMENT MANUAL DIFFERENTIAL; WBC MORPHOLOGY (MULTIPLE) 1+ TOXIC GRANULATION (NORMAL)
[2024-07-01] MEDS: polyethylene glycoL 3350 17 GM PACKET PO SCH (08:59)
[2024-07-01] MEDS: cefTRIAXone 1 GM VIAL IVP SCH (08:59)
[2024-07-01] MEDS: AZITHROMYCIN INJ 500 MG in SODIUM CHLORIDE 0.9% 250 ML IV SCH (08:59)
[2024-07-01 09:03] VITALS: BP 143/79; TEMP 98.6; O2SAT 95
--- NOTE | 2024-07-01 12:16 | Discharge Summary ---
Discharge Summary Admit Date: 06/30/24 Discharge Date: 07/01/24 Discharging Provider: Lisa Smith PA-C Primary Care Provider: Sebastien Ortez MD Code Status: Attempt Resuscitation DIAGNOSES Discharge Diagnoses with Status of Each Condition: Syncopal episode: No abnormalities noted on telemetry. Patient is pacemaker dependent. Atypical pneumonia: Finish a course of azithromycin and Augmentin as an outpatient. COVID: Now over 1 week out from onset of symptoms. Supportive care Metastatic adenocarcinoma of prostate: Stable, on palliative treatment HPI History of Present Illness: Found down on the [place] in the neighborhood. 79 yo male who has a hx of metastatic prostate cancer, and was dx with covid about a week ago presents to the ED with a presumed syncopal episode earlier today. He likes to take a walk every day, and today, instead of waiting for his daughter, he went alone. He thinks that he got too hot while walking in the sun and fell down in the road. he was picked up by neighbors and came ot the ED with his daughter. He and his have been isolating due to their illness, but daughter says that he has been slighly more confused since he has been sick. He is vague with regards to details of his episode. He states that he also has a hx of a fib, not anticoagulated due to history of "brain bleed". he is not able to tell me more about this. He cannot tell me if it was related to trauma, or a hypertensive hemorrhage. denies crainiotomy. tells me "they watched it". He has been sick for about 10 days with a cough, was sick several days before. they both have now been dx with covid. no paxlovid given,as sx present for too long prior to seeking healthcare. Also fever at triage today 39.2 States that he wants to be full code. his is his surrogate medical decision maker. CONSULTS | PROCEDURES Procedures: Chest x-ray: Mild to moderate interstitial prominence likely atypical infection versus edema. Consider future imaging surveillance to assess for resolution Head CT no acute intracranial pathology Facial bone CT slightly displaced bilateral anterior nasal bone fractures with soft tissue swelling mild nasal septal deviation. Mild lateral ethmoid sinusitis. No other facial bone fractures bilateral orbital lechuga and orbital globes are intact. Cervical spine CT no acute displaced fracture or traumatic subluxation degenerative changes. HOSPITAL COURSE Hospital Course: 79-year-old gentleman with active COVID infection and likely superimposed bacterial pneumonia presents to ED after syncopal episode that happened while walking in his neighborhood. Observed overnight on telemetry for any arrhythmias. None seen however patient is pacemaker dependent. No echocardiogram available, recommend PCP follow-up. Should also have repeat chest x-ray in 2 to 3 months for assess for resolution of abnormalities. ALLERGIES Allergies Allergy/AdvReac Type Severity Reaction Status Date / Time No Known Drug Allergies Allergy Verified 06/30/24 15:45 MEDICATIONS Ambulatory Orders Medication Instructions Recorded Confirmed acetaminophen 325 mg tablet 650 mg (2 x 325 mg) PO Q4HR PRN 11/19/15 06/23/24 Pain 1 to 4 #0 tabs methadone 5 mg tablet 15 mg PO DAILY 08/22/18 06/23/24 metoprolol tartrate 50 mg tablet 50 mg PO PRN PRN Cardiac Arrhythmia 03/19/21 06/23/24 polyethylene glycol 3350 17 gram 17 g PO DAILY 03/19/21 06/23/24 oral powder packet ondansetron HCl 8 mg tablet 8 mg PO TID 30 days #90 tabs 10/18/23 06/23/24 dexamethasone 0.5 mg/5 mL oral 0.5 mg PO DAILY 11/29/23 06/23/24 elixir olaparib 150 mg tablet (Lynparza) 300 mg (2 x 150 mg) PO BID #60 tabs 04/26/24 06/23/24 abiraterone 250 mg tablet 250 mg PO DAILY #30 tabs 06/29/24 amoxicillin 875 mg-potassium 1 tab PO BID #6 tabs 07/01/24 clavulanate 125 mg tablet azithromycin 500 mg tablet 500 mg PO DAILY #1 tab 07/01/24 PHYSICAL EXAM AT DISCHARGE Vital Signs: Vital Signs x48h Temp Pulse Pulse Resp BP Pulse Ox 07/01/24 09:00 37.0 C 82 18 143/79 H 95 07/01/24 05:00 36.7 C 62 20 114/70 97 LABS 07/01/24 05:20 07/01/24 05:20 DIAGNOSTIC IMAGING Diagnostic Imaging Results Comments: General: Alert and oriented Skin: No rash, scattered abrasions Eyes : PERRL, EOMI. Sclera and conjunctiva clear Neck: supple trachea midline Heart : regular rate and rhythm without murmur Lungs : Clear bilaterally to auscultation Extremities : no edema or deformity Psychiatric : normal mood and affect; cooperative with care; speech and thought content organized FOLLOW UP Follow Up: Sebastien Ortez, PCP in next 7 to 10 days. Patient should have outpatient echocardiogram and follow-up he should also have repeat chest x-ray in 2 to 3 months to assess for resolution of abnormalities. Cardiology follow-up as scheduled for regular pacer checks. TIME SPENT Time Spent in Discharge (Minutes): 35 Discharge Plan Discharge Patient Disposition: Home, Self Care Condition: Stable Medically Cleared Comments:: YES Prescriptions: New azithromycin 500 mg tablet 500 mg PO DAILY Qty: 1 0RF amoxicillin-pot clavulanate 875-125 mg tablet 1 tab PO BID Qty: 6 0RF Continued Lynparza 150 mg tablet 300 mg PO BID Qty: 60 3RF abiraterone 250 mg tablet 250 mg PO DAILY Qty: 30 6RF acetaminophen 325 MG tablet 650 mg PO Q4HR PRN (Reason: Pain 1 to 4) Qty: 0 0RF methadone 5 MG tablet 15 mg PO DAILY Rx Instructions: for RLS polyethylene glycol 3350 17 GM powder in packet 17 g PO DAILY metoprolol tartrate 50 MG tablet 50 mg PO PRN PRN (Reason: Cardiac Arrhythmia) ondansetron HCl 8 MG tablet 8 mg PO TID 30 Days Qty: 90 3RF Rx Instructions: Take 1 tablet by mouth every 8 hours as needed for chemotherapy-induced nausea. dexamethasone 0.5 MG/5 ML elixir 0.5 mg PO DAILY Discontinued azithromycin 250 mg tablet See Rx Instructions PO .COMPLEX Qty: 6 0RF Rx Instructions: For 250 mg dose pack: take 500 mg today (day 1), then 250 mg for 4 days (days 2-5) PO Diet: Regular Interventions: Discharge Last Done: 07/01/24 12:50 Discharge Checklist - Nursing Last Done: 07/01/24 12:52 Health Concerns: Yes you are an 79-year-old male with metastatic prostate cancer, atrial fibrillation with a pacemaker who passed out while walking in your neighborhood yesterday. You have had COVID for about a week and it looks like you may have a pneumonia associated with your COVID. For this reason we are putting you on antibiotics to try to help you resolve the pneumonia. I still think you are going to be tired and weak for some time. While you were here in the hospital we gave you IV fluids and watch your heart rate. Everything looked pretty good but you still look really tired and worn out from this infection. I am recommending that you not take any walks for exercise for a week and that for the next week you only walk when you have someone with you. I am also recommending that you eat and drink well at home. I want you to avoid low oral intake in both liquids and foods. You need to eat things with high caloric density and lots of vitamins and minerals. If you find that you are not eating and drinking well things like Ensure or liquid IV can be very helpful for keeping your electrolytes up. I would recommend that you follow-up with Dr. Ortez in a week or so just to have him checked things over. I think that in another week you will not be transmitting your COVID although you certainly may still be tired and weak. It will take you quite some time to get over this infection. You do not need to start your antibiotics until tomorrow. This gives you some time to get them picked up. I have sent 1 dose of azithromycin and 6 doses of Augmentin to the pharmacy in [place]. I want you to take the azithromycin tomorrow morning. This antibiotic is generally better tolerated with food. The same goes for the Augmentin. I want you to take this twice a day for 3 days starting tomorrow, Wednesday. This will help with the pneumonia. Nothing is going to help you get rid of the COVID aside from time and lots of rest. I see he also may have some azithromycin at home already, fine to just take 500mg of that tomorrow AM Print Language: Yi Patient Instructions: Flu and Cold: Nutrition, Prevention and Treatment Tips Follow-up Care: Sebastien Ortez MD [Primary Care Provider] -
== END 2024-07-01 12:50 | disposition home or self-care (01) ==
LOC: ED 15:15 → MS3 15:15
PROVIDERS: ADMIT Physician Assistant Medical; ATTEND Physician Assistant Medical
DX: S00.81XA Abrasion of other part of head, initial encounter; C61 Malignant neoplasm of prostate; U07.1 COVID-19; E86.0 Dehydration; S02.2XXA Fracture of nasal bones, initial encounter for closed fracture; Z95.0 Presence of cardiac pacemaker; R79.89 Other specified abnormal findings of blood chemistry; R55 Syncope and collapse; J15.9 Unspecified bacterial pneumonia; I48.91 Unspecified atrial fibrillation; J32.2 Chronic ethmoidal sinusitis; R53.1 Weakness; W18.30XA Fall on same level, unspecified, initial encounter; Y93.01 Activity, walking, marching and hiking

== ENCOUNTER 2024-07-10 12:59 | Inpatient (IN) ==
[2024-07-10 13:45] LABS: BASOPHILS % (AUTO) 0.6 %; EOSINOPHILS % (AUTO) 0.4 %; HCT - HEMATOCRIT 28.5 % (42.0-52.0); HGB - HEMOGLOBIN 10.1 g/dL (14.0-18.0); LYMPHOCYTES % (AUTO) 11.2 %; MEAN CORPUSCULAR HEMOGLOBIN 39.1 pg (27.0-31.0); MEAN CORPUSCULAR HGB CONC 35.4 g/dL (32.0-36.0); MEAN CORPUSCULAR VOLUME 110.5 fL (80.0-94.0); MONOCYTES % (AUTO) 4.4 %; NEUTROPHILS % (AUTO) 80.2 %; RED BLOOD COUNT 2.58 10^6/uL (4.70-6.10); RED CELL DISTRIBUTION WIDTH 16.9 % (12.0-15.0); WHITE BLOOD COUNT 4.7 x10^3/uL (4.8-10.8)
--- NOTE | 2024-07-10 13:55 | XRAY Report ---
PROCEDURE: XR Chest 1V INDICATIONS: sob TECHNIQUE: One view of the chest was acquired. COMPARISON: None. FINDINGS: Surgical changes and devices: None pacemaker. Lungs and pleura: There is focal pneumonia, right apex. There are patchy bilateral mid to lower lung field infiltrates. Mediastinum: Mediastinal contours appear normal. Heart size is normal. Bones and chest wall: No suspicious bony lesions. Overlying soft tissues appear unremarkable. IMPRESSION: 1. Focal right apical pneumonia. 2. Patchy bilateral mid to lower lung field infiltrates may either represent patchy additional areas of pneumonia or findings of pulmonary edema. Progress films are recommended until clear. Reviewed by: Sal Moore MD on 07/10/2024 1:53 PM PDT Approved by: Sal Moore MD on 07/10/2024 1:53 PM PDT Station ID: [id number]
[2024-07-10] MEDS: IPRATROPIUM/ALBUTEROL 3 ML NEB INH STA (13:57)
[2024-07-10 13:59] LABS: ALBUMIN 2.8 g/dL (3.2-5.5); CALCIUM 8.8 mg/dL (8.5-10.3); POTASSIUM 3.9 mmol/L (3.5-4.5); TOTAL PROTEIN 5.7 g/dL (6.4-8.9)
[2024-07-10 14:06] LABS: PLT - PLATELET COUNT 26 10^3/uL (130-450)
[2024-07-10 14:07] LABS: TROPONIN I HIGH SENSITIVITY 383.9 ng/L (2.3-19.7)
[2024-07-10 14:08] LABS: ABNORMAL LYMPHS % (MANUAL) 0 %
[2024-07-10 14:14] LABS: BAND NEUTROPHILS % (MANUAL) 4 %; LYMPHOCYTES # (MANUAL) 0.5 10^3/uL (1.5-3.5); LYMPHOCYTES % (MANUAL) 10 %; MONOCYTES # (MANUAL) 0.1 10^3/uL (0.0-1.0); NEUTROPHILS # (MANUAL) 4.1 10^3/uL (1.5-6.6); NUCLEATED RBC (MANUAL) 1 %
[2024-07-10 14:16] LABS: DIFFERENTIAL COMMENT MANUAL DIFFERENTIAL; PLATELET ESTIMATE, MANUAL DECREASED (<130,000) (NORMAL); PLATELET MORPHOLOGY NORMAL APPEARANCE (NORMAL)
--- OUTSIDE RECORDS SUMMARY | 2024-07-10 14:27 | EXTERNAL MEDICAL SUMMARY RPT | Continuity of Care Document ---
Author Organization [facility] Address [address] [place] [id number] Phone Problems date description facility 2024-04-11 00:02 [facility] 2024-04-11 00:02 Disorder of kidney and ureter, unspecified [facility] 2024-05-12 10:51 Anemia, unspecified [facility] 2024-05-15 07:37 Anemia, unspecified [facility] 2024-05-16 16:18 Malignant neoplasm of prostate [facility] 2024-05-16 16:[address] [facility] 2024-05-16 16:29 [facility] 2024-05-16 16:[address] [facility] 2024-05-16 16:30 [facility] 2024-05-16 16:[address] [facility] 2024-05-17 00:04 Malignant neoplasm of prostate [facility] 2024-05-17 00:[address] [facility] 2024-05-22 13:17 Malignant neoplasm of prostate [facility] 2024-05-22 13:17 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 organs [facility] 2024-05-22 13:17 Anemia, unspecified [facility] 2024-05-22 13:17 Aneurysm of other specified art eries [facility] 2024-05-22 13:17 Other specified soft tissue dis orders [facility] 2024-05-22 13:17 Fracture of other pa rts of pelvis, subsequent encounter for fracture with delayed healing [facility] 2024-05-22 13:17 Encounter for genera l adult medical examination without abnormal findings [facility] 2024-05-22 13:[address] [facility] 2024-05-22 13:17 Encounter for antineoplastic ch emotherapy [facility] 2024-05-22 13:20 Malignant neoplasm of prostate [facility] 2024-06-23 09:48 Malignant neoplasm of prostate [facility] 2024-06-23 09:48 Hormone resistant malignancy [facility] 2024-06-23 10:15 Malignant neoplasm of prostate [facility] 2024-06-23 10:15 Hormone resistant malignancy [facility] 2024-06-23 10:43 Cough, unspecified [facility] 2024-06-23 11:00 Cough, unspecified [facility] 2024-06-23 12:02 Cough, unspecified [facility] 2024-06-23 12:02 COVID-19 [facility] 2024-06-23 15:27 Cough, unspecified [facility] 2024-06-24 00:02 Cough, unspecified [facility] 2024-06-24 00:05 Malignant neoplasm of prostate [facility] 2024-06-24 00:05 Hormone resistant malignancy [facility] 2024-07-01 12:16 Malignant neoplasm of prostate [facility] 2024-07-01 12:16 Pneumonia, unspecified organism [facility] 2024-07-01 12:16 Syncope and collapse [facility] 2024-07-01 12:16 COVID-[address] [place] [address] 2024-07-01 12:16 Hormone resistant malignancy [facility] 2024-07-01 12:27 Malignant neoplasm of prostate [facility] 2024-07-01 12:27 Pneumonia, unspecified organism [facility] 2024-07-01 12:27 Syncope and collapse [facility] 2024-07-01 12:27 COVID-[address] [place] [address] 2024-07-01 12:[address] [facility] 2024-07-01 12:56 Malignant neoplasm of prostate [facility] 2024-07-01 12:56 Pneumonia, unspecified organism [facility] 2024-07-01 12:56 Syncope and collapse [facility] 2024-07-01 12:56 COVID-19 [facility] 2024-07-01 12:[address] [facility] 2024-07-03 06:51 Malignant neoplasm of prostate [facility] 2024-07-03 06:51 Pneumonia, unspecified organism [facility] 2024-07-03 06:51 Syncope and collapse [facility] 2024-07-03 06:51 COVID-19 [facility] 2024-07-03 06:[address] [facility] 2024-07-04 10:59 Malignant neoplasm of prostate [facility] 2024-07-04 10:59 Pneumonia, unspecified organism [facility] 2024-07-04 10:59 Disorientation, unspecified [facility] 2024-07-04 10:59 Weakness [facility] 2024-07-04 10:59 Syncope and collapse [facility] 2024-07-04 10:59 COVID-[address] [place] [address] 2024-07-04 10:[address] [facility] 2024-07-04 11:10 Malignant neoplasm of prostate [facility] 2024-07-04 11:10 Secondary malignant neoplasm of bone [facility] 2024-07-04 11:[address] [facility] 2024-07-06 11:58 Malignant neoplasm of prostate [facility] 2024-07-06 11:58 Secondary malignant neoplasm of bone [facility] 2024-07-06 11:[address] [facility] Results/Labs test date facility value unit notes Result panel 1 VITAMIN B12 2024-05-12 10:55 [facility] pg/ml Social History date description facility
[2024-07-10 15:12] LABS: BILIRUBIN,URINE NEGATIVE (NEGATIVE); CLARITY,URINE CLEAR (CLEAR); GLUCOSE, URINE (UA) NEGATIVE (NEGATIVE); KETONES,URINE (UA) 15 mg/dL (NEGATIVE); LEUKOCYTE ESTERASE, URINE NEGATIVE (NEGATIVE); NITRITE,URINE NEGATIVE (NEGATIVE); OCCULT BLOOD,URINE SMALL (NEGATIVE); PROTEIN,URINE 100 mg/dL (NEGATIVE); UROBILINOGEN,URINE 0.2 (NORMAL) E.U./dL (NORMAL)
[2024-07-10 15:17] LABS: BACTERIA,URINE None Seen /HPF (None Seen); RBC,URINE 0-5 /HPF (0-5); SQUAMOUS EPITHELIAL CELL,UR RARE Squamous (<= Few); WBC,URINE 0-3 /HPF (0-3)
[2024-07-10 15:45] LABS: INR 1.6 (0.8-1.2); PT - PROTHROMBIN TIME 17.4 secs (9.9-12.6)
[2024-07-10] MEDS: VANCOMYCIN INJ 1 GM, VANCOMYCIN INJ 250 MG in SODIUM CHLORIDE 0.9% 250 ML IV STA (17:00)
[2024-07-10] MEDS: cefTRIAXone 1 GM VIAL IVP STA (17:00)
[2024-07-10] MEDS: VANCOMYCIN INJ 1 GM, VANCOMYCIN INJ 500 MG in SODIUM CHLORIDE 0.9% 500 ML IV STA (17:05)
--- OUTSIDE RECORDS SUMMARY | 2024-07-10 17:22 | EXTERNAL MEDICAL SUMMARY RPT | Continuity of Care Document ---
Author Organization [facility] Address [address] [place] [phone] Phone Problems date description facility 2024-04-11 00:02 [facility] 2024-04-11 00:02 Disorder of kidney and ureter, unspecified [facility] 2024-05-12 10:51 Anemia, unspecified [facility] 2024-05-15 07:37 Anemia, unspecified [facility] 2024-05-16 16:18 Malignant neoplasm of prostate [facility] 2024-05-16 16:[address] [email or web address] 2024-05-16 16:29 [facility]ignant [facility] of prostate [facility] 2024-05-16 16:[address] [facility]24-05-16 16:30 [facility] 2024-05-16 16:[address] [facility] 2024-05-17 00:04 Malignant neoplasm of prostate [facility] 2024-05-17 00:[address] [facility] 2024-05-22 13:17 Malignant neoplasm of prostate [facility] 2024-05-22 13:17 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 organs [facility] 2024-05-22 13:17 Anemia, unspecified [facility] 2024-05-22 13:17 Aneurysm of other specified art eries [facility] 2024-05-22 13:17 Other specified soft tissue dis orders [facility] 2024-05-22 13:17 Fracture of other pa rts of pelvis, subsequent encounter for fracture with delayed healing [facility] 2024-05-22 13:17 Encounter for genera l adult medical examination without abnormal findings [facility] 2024-05-22 13:[address] [facility] 2024-05-22 13:17 Encounter for antineoplastic ch emotherapy [facility] 2024-05-22 13:20 Malignant neoplasm of prostate [facility] 2024-06-23 09:48 Malignant neoplasm of prostate [facility] 2024-06-23 09:48 Hormone resistant malignancy [facility] 2024-06-23 10:15 Malignant neoplasm of prostate [facility] 2024-06-23 10:15 Hormone resistant malignancy [facility] 2024-06-23 10:43 Cough, unspecified [facility] 2024-06-23 11:00 Cough, unspecified [facility] 2024-06-23 12:02 Cough, unspecified [facility] 2024-06-23 12:02 COVID-19 [facility] 2024-06-23 15:27 Cough, unspecified [facility] 2024-06-24 00:02 Cough, unspecified [facility] 2024-06-24 00:05 Malignant neoplasm of prostate [facility] 2024-06-24 00:05 Hormone resistant malignancy [facility] 2024-07-01 12:16 Malignant neoplasm of prostate [facility] 2024-07-01 12:16 Pneumonia, unspecified organism [facility] 2024-07-01 12:16 Syncope and collapse [facility] 2024-07-01 12:16 COVID-[address] [place] [address] 2024-07-01 12:16 Hormone resistant malignancy [facility] 2024-07-01 12:27 Malignant neoplasm of prostate [facility] 2024-07-01 12:27 Pneumonia, unspecified organism [facility] 2024-07-01 12:27 Syncope and collapse [facility] 2024-07-01 12:27 COVID-[address] [place] [address] 2024-07-01 12:[address] [facility] 2024-07-01 12:56 Malignant neoplasm of prostate [facility] 2024-07-01 12:56 Pneumonia, unspecified organism [facility] 2024-07-01 12:56 Syncope and collapse [facility] 2024-07-01 12:56 COVID-19 [facility] 2024-07-01 12:[address] [facility] 2024-07-03 06:51 Malignant neoplasm of prostate [facility] 2024-07-03 06:51 Pneumonia, unspecified organism [facility] 2024-07-03 06:51 Syncope and collapse [facility] 2024-07-03 06:51 COVID-19 [facility] 2024-07-03 06:[address] [facility] 2024-07-04 10:59 Malignant neoplasm of prostate [facility] 2024-07-04 10:59 Pneumonia, unspecified organism [facility] 2024-07-04 10:59 Disorientation, unspecified [facility] 2024-07-04 10:59 Weakness [facility] 2024-07-04 10:59 Syncope and collapse [facility] 2024-07-04 10:59 COVID-[address] [place] [address] 2024-07-04 10:[address] [facility] 2024-07-04 11:10 Malignant neoplasm of prostate [facility] 2024-07-04 11:10 Secondary malignant neoplasm of bone [facility] 2024-07-04 11:[address] [facility] 2024-07-06 11:58 Malignant neoplasm of prostate [facility] 2024-07-06 11:58 Secondary malignant neoplasm of bone [facility] 2024-07-06 11:[address] [facility] Results/Labs test date facility value unit notes Result panel 1 VITAMIN B12 2024-05-12 10:55 [facility]/ml Social History date description facility
--- NOTE | 2024-07-10 17:33 | HISTORY & PHYSICAL EXAMINATION ---
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 Patient's daughter and are at bedside who corroborates the above story. Patient has been having increasing falls at home. He was admitted here from 06/30 to 07/01 for dehydration as well as a syncopal episode. Records were reviewedhe was walking down a dirt road, and he fell, and was found by his neighbors. At that time, he was positive for COVID-19. Prior to admission on 06/30, he had experienced 10 days of symptoms with the fever, chills, fatigue, as well as a cough. He was discharged home with azithromycin and Augmentin, a course of which he has completed. Now he returns as he has had increasing weakness and lethargy at home. He has not had any appetite, due to his poor taste and sense of smell, and has not been eating or drinking adequately. He also has a persistent cough with sputum production. He has had occasional fevers and chills. His daughter states that he has had episodes of intermittent confusion as well. For the past few days, he is having some difficulty with swallowing as he is too weak, and there is some concern for aspiration. He has no active chest pain. He does state when he takes deep breaths, he sometimes feels pain. He has been having diarrhea at home, few episodes per day of high volume, loose stools. He stated started when he started taking antibiotics. He also endorses some muscle aches, including neck pain. In the emergency room, he was hypoxic down to 85%, and was placed on 4 L of oxygen via nasal cannula. He is normotensive with blood pressure 119/90, respiratory rate is 18, his pulse is 86, and he is afebrile. Lab work was reviewed and does show a leukopenia of 4.7, and anemia of 10.1, and thrombocytopenia of 26. His INR is mildly elevated at 1.6. His creatinine is within normal limits. His troponin was elevated at 383.9, and repeat was 366.6. LAURA Hampton in the emergency room did speak with [facility] cardiology, who recommends against treatment at this time including transfer for cardiac catheterization, or heparin drip. His proBNP was mildly elevated at 453. Records were reviewed, his last echo was 06/05, and it showed a normal left ventricular function, as well as normal diastolic function. No valvular disease was noted. Chest x-ray was completed and it shows a right apical pneumonia, as well as patchy bilateral mid to lower lung field infiltrates. Meds/Allgy Home Medications Ambulatory Orders Medication Instructions Recorded Confirmed acetaminophen 325 mg tablet 650 mg (2 x 325 mg) PO Q4HR PRN 11/19/15 07/10/24 Pain 1 to 4 #0 tabs methadone 5 mg tablet 15 mg PO DAILY 08/22/18 06/23/24 metoprolol tartrate 50 mg tablet 50 mg PO PRN PRN Cardiac Arrhythmia 03/19/21 06/23/24 polyethylene glycol 3350 17 gram 17 g PO DAILY 03/19/21 06/23/24 oral powder packet olaparib 150 mg tablet (Lynparza) 300 mg (2 x 150 mg) PO BID #60 tabs 04/26/24 06/23/24 abiraterone 250 mg tablet 250 mg PO DAILY #30 tabs 06/29/24 methadone 10 mg tablet 20 mg PO HS 07/10/24 solifenacin 5 mg tablet 5 mg PO DAILY 07/10/24 Allergies Allergies Allergy/AdvReac Type Severity Reaction Status Date / Time No Known Drug Allergies Allergy Verified 07/10/24 13:08 [facility] Active Problems All Active Problems (Updated 07/10/24 @ 17:26 by Mague Mcgrath MD) Atrial fibrillation (Acute) Tachy-justine syndrome (Acute) Pancytopenia (Acute) Acute hypoxic respiratory failure (Acute) Healthcare associated bacterial pneumonia (Acute) Breath shortness (Acute) Pneumonia (Acute) Atypical pneumonia (Acute) Closed fracture nasal bone (Acute) COVID (Acute) Cough (Acute) CKD (chronic kidney disease) stage 3, GFR 30-59 ml/min (Acute) Renal dysfunction (Acute) Dysuria (Acute) skilled nursing (current) use of other agents affecting estrogen receptors and estrogen levels (Acute) Screening for osteoporosis (Acute) Splenic artery aneurysm (Acute) Pelvic fracture (Acute) Healthcare maintenance (Acute) Genetic counseling and testing (Acute) Anemia (Acute) Leg swelling (Acute) Encounter for antineoplastic chemotherapy (Acute) 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 Relationship: Spouse Level: Assisted Home Mobility Equipment: Walker Do you feel safe in your home environment?: Yes Suffered physical, verbal, emotional, or financial abuse?: No History of Abuse: No ETOH Use: Wine Frequency: Occasional Substance Use: denies use POLST Patient has POLST: No Review of Systems Status of ROS: 10 or more systems reviewed and unremarkable except as noted in history and below Constitutional Reports: Fatigue, Fever, Malaise, Weakness, Diaphoresis, Poor appetite and Weight loss Eyes Denies: Pain, Irritation, Blurry vision, Field loss, Vision loss or Change in vision Ears, nose, mouth, and throat Reports: Nasal congestion, Post nasal drip and Neck pain; Denies: Ear pain, Ear discharge, Hearing loss or Hearing aids Cardiovascular Reports: Irregular heart rate, swelling of feet/ankles (has been chronic on palliative chemo for prostate cancer. ), lightheadedness and shortness of breath with exertion; Denies: chest pain, palpitations or Syncope Respiratory Reports: Shortness of breath and Cough Gastrointestinal Reports: Poor appetite, Diarrhea and Change in bowel habits; Denies: Abdominal pain, Abdominal distention, Nausea, Vomiting or Constipation Genitourinary Reports: Urinary frequency; Denies: Painful urination, Flank pain or Incontinence Musculoskeletal Reports: Neck pain; Denies: Back pain, Extremity pain or Extremity swelling Integumentary/Breast Denies: Rash, Itching, Dryness or Redness Neurological Reports: General weakness, Dizziness and Confusion Endocrine Reports: Fatigue; Denies: Excessive urination or Excessive thirst Hematologic/Lymphatic Reports: Easy bruising (cancer meds causing this) Prior Level of Functionality: lives at home with . walks without assistance, daughter lives nearby Exam Exam Vital Signs: Vital Signs x48h Temp Pulse Resp BP Pulse Ox O2 Flow Rate 07/10/24 17:06 96 16 152/88 H 91 L 4 07/10/24 14:03 82 16 07/10/24 13:31 87 97 2 07/10/24 13:30 87 18 145/85 H 85 L 07/10/24 13:20 2 07/10/24 13:08 97.9 F 86 18 119/90 92 2 Constitutional normal general appearance, no apparent distress, abnormal body habitus (thin) and alert HENMT normocephalic, nasal mucous membranes normal, external nose normal and oral mucous membranes normal Eyes PERRL and conjunctivae normal Neck/C-Spine visual inspection normal Lymph no lymphadenopathy noted Chest inspection of chest normal Respiratory breath sounds equal bilaterally, normal respiratory effort, clear to auscultation bilaterally and no use of accessory muscles Mild crackles in RLL, RML and most pronounced in RUL Cardiovascular normal heart rate noted, no rub and no murmur irregularly irreg Gastrointestinal abdomen normal to inspection, abdomen soft to palpation, nontender to palpation, nontender to percussion and nondistended Genitourinary no CVA tenderness Back/Pelvis spine normal to inspection and no thoracic spine tenderness Extremities normal to inspection, normal to palpation, no tenderness and full ROM Neurology no movement abnormality noted, no focal motor deficit noted, no sensory deficits noted and speech normal Psychiatry mental status grossly normal, oriented x3 and cooperative Skin scattered brusing and abrasions,in various stages of healing Conclusion/Plan Problem List (1) Acute hypoxic respiratory failure: Plan: Patient presented with worsening fatigue, productive cough, generalized malaise and weakness. Chest x-ray shows right lobe pneumonia. Procalcitonin is elevated. History of COVID approximately 10 to 15 days ago. Likely superimposed bacterial pneumonia. Concern for healthcare acquired pneumonia as during his last visit he did complete a course of amoxicillin and azithromycin. Continue cefepime and vancomycin at this time. Blood cultures, sputum culture ordered, pending. Continue IV fluid rehydration. Patient is already on chronic Decadron therapy for his prostate cancer, continued. (2) Healthcare associated bacterial pneumonia: Plan: See above. (3) Acute dehydration: Plan: Patient with decreased appetite, increased episodes of diarrhea. Appears volume depleted. Stool studies ordered. Continue IVF. (4) Pancytopenia: Plan: Likely as a result of active chemotherapy treatment. Continue to trend, monitor for active bleeding. Hold DVT prophylaxis (SCDs only). (5) Restless leg syndrome: Plan: Continue methadone 15mg nightly. (6) Tachy-justine syndrome: Plan: Patient with a history of atrial fibrillation, and then developed subsequent tachybradycardia syndrome. Pacemaker in place. Continue to monitor. Patient does not take any anticoagulation due to former history of some type of brain bleed. Patient appears also to be a high fall risk. (7) Atrial fibrillation: Plan: Patient with a history of atrial fibrillation, and then developed subsequent tachybradycardia syndrome. Pacemaker in place. Continue to monitor. Patient does not take any anticoagulation due to former history of some type of brain bleed. Patient appears also to be a high fall risk. Qualifiers: Atrial fibrillation type: unspecified Qualified Code(s): I48.91 - Unspecified atrial fibrillation (8) Metastatic castration-resistant adenocarcinoma of prostate: Plan: Oncology records reviewedpatient has stage IV metastatic prostate cancer, with mets to the bones. His PSA is responding well to current treatmentleuprolide, Olaparib, as well as dexamethasone. Follow with Dr. Teran after discharge. Lab Results Lab results reviewed: Yes 07/10/24 13:36 07/10/24 13:36 Diagnostic Imaging Results Diagnostic Imaging Results: positive Final report reviewed EKG Results EKG Interpreted Independently: Yes Core Measures Anticipated LOS I expect patient to be DC'd or transferred within 96 hours.: Yes Issues Hospital Issues and Management Plan: None anticipated. DVT/VTE - Prophylaxis VTE/DVT Device ordered at admit?: Yes VTE/DVT Prophylaxis med ordered at admit?: No Not Ordered - Medical Reason: Contraindicated
[2024-07-10] MEDS ORDERED: ONDANSETRON ODT 4 MG TABLET TL PRN (18:22)
[2024-07-10] MEDS ORDERED: SODIUM CHLORIDE FLUSH 0.9% 10 ML SYRINGE IVP PRN (18:22)
[2024-07-10] MEDS ORDERED: METOPROLOL TARTRATE 50 MG TABLET PO PRN (18:22)
[2024-07-10] MEDS ORDERED: ACETAMINOPHEN 325 MG TABLET PO PRN (18:22)
[2024-07-10] MEDS: LACTATED RINGERS 1,000 ML IV SCH (18:49)
[2024-07-10] MEDS: ACETAMINOPHEN 325 MG TABLET PO PRN (18:50)
[2024-07-10] MEDS: METHADONE 5 MG TABLET PO SCH (21:35)
[2024-07-10] MEDS: CEFEPIME 2 GM VIAL IVP SCH (21:38)
[2024-07-11] MEDS: SODIUM CHLORIDE FLUSH 0.9% 10 ML SYRINGE IVP SCH (01:00)
[2024-07-11 04:41] LABS: HCT - HEMATOCRIT 23.9 % (42.0-52.0); HGB - HEMOGLOBIN 8.4 g/dL (14.0-18.0); MEAN CORPUSCULAR HEMOGLOBIN 38.4 pg (27.0-31.0); MEAN CORPUSCULAR HGB CONC 35.1 g/dL (32.0-36.0); MEAN CORPUSCULAR VOLUME 109.1 fL (80.0-94.0); RED BLOOD COUNT 2.19 10^6/uL (4.70-6.10); RED CELL DISTRIBUTION WIDTH 17.8 % (12.0-15.0); WHITE BLOOD COUNT 4.2 x10^3/uL (4.8-10.8)
[2024-07-11 04:51] LABS: CREATININE 1.1 mg/dL (0.6-1.3); MAGNESIUM 2.2 mg/dL (1.7-2.3); POTASSIUM 4.1 mmol/L (3.5-4.5)
[2024-07-11] MEDS: VANCOMYCIN INJ 1 GM in SODIUM CHLORIDE 0.9% 250 ML IV SCH (04:53)
[2024-07-11 05:16] LABS: PLT - PLATELET COUNT 16 10^3/uL (130-450)
[2024-07-11 07:28] LABS: INFLUENZA A- RESP PCR PANEL NOT DETECTED; INFLUENZA B - RESP PCR PANEL NOT DETECTED; RSV- RESP PCR PANEL NOT DETECTED
[2024-07-11 07:30] LABS: SARS-CoV-2 -RESP PCR PANEL DETECTED
[2024-07-11] MEDS: ONDANSETRON 4 MG/2 ML VIAL IVP PRN (08:37)
[2024-07-11] MEDS: ethyl alcohoL 62% SWAB AMPULE NAS SCH (08:56)
[2024-07-11] MEDS: SACCHAROMYCES BOULARDII 250 MG CAPSULE PO SCH (08:56)
[2024-07-11] MEDS: SOLIFENACIN SUCCINATE 5 MG TABLET PO SCH (08:56)
[2024-07-11 08:58] LABS: HCT - HEMATOCRIT 24.5 % (42.0-52.0); HGB - HEMOGLOBIN 8.6 g/dL (14.0-18.0); MEAN CORPUSCULAR HEMOGLOBIN 38.7 pg (27.0-31.0); MEAN CORPUSCULAR HGB CONC 35.1 g/dL (32.0-36.0); MEAN CORPUSCULAR VOLUME 110.4 fL (80.0-94.0); RED BLOOD COUNT 2.22 10^6/uL (4.70-6.10); RED CELL DISTRIBUTION WIDTH 18.9 % (12.0-15.0)
[2024-07-11 09:07] LABS: PLT - PLATELET COUNT 16 10^3/uL (130-450)
--- NOTE | 2024-07-11 14:29 | PROVIDER PROGRESS NOTE ---
Subjective Prog Note Date Prog Note Date: 07/11/24 Prog Note Time: 14:26 Subjective Pt reports feeling: No change Subjective: He complains of severe fatigue. Everything is a huge effort. Even talking is an effort. He is not short of breath he is just significantly fatigued. He denies chest pain. Is mildly short of breath at rest. Cough is the same and not productive. He does not remember falling. But he knows that ever since he has been in the ambulance and now in the hospital both his knees hurt, and his elbow hurts. His neck still aches. He is getting oxycodone for breakthrough pain on top of his methadone. He uses methadone for restless leg syndrome. Prescriber is Dr. Sebastien Ortez. Spoke to Dr. Ortez. He confirms that it is 20 mg at night for restless leg syndrome. It is an off label use and it seems to be working well for the patient. The oxycodone for his cecilia pain is not working. Current Medications Current Medications Current Medications: Current Medications Generic Name Dose Route Start Last Admin Trade Name Freq PRN Reason Stop Dose Admin Acetaminophen 650 mg 07/10/24 18:22 07/11/24 14:16 Acetaminophen 325 Mg Tablet PO 650 mg Q4HR PRN Administration Pain 1 to 4 Alcohol 1 amp 07/11/24 09:00 07/11/24 08:56 Ethyl Alcohol 62% Swab Ampule DAYNA 1 amp BID KELLEN Administration Cefepime HCl 2 gm 07/10/24 22:00 07/11/24 14:15 Cefepime 2 Gm Vial IVP 2 gm Q8HR KELLEN Administration Lactated Ringer's 1,000 mls @ 75 mls/hr 07/10/24 18:22 07/11/24 09:04 Lr IV 75 mls/hr .[id number] KELLEN Administration Vancomycin HCl 1 gm/ Sodium 250 mls @ 167 mls/hr 07/11/24 05:00 07/11/24 06:46 Chloride IV Infused Q12H KELLEN Infusion Methadone HCl 15 mg 07/10/24 21:00 07/10/24 21:35 Methadone 5 Mg Tablet PO 15 mg HS KELLEN Administration Metoprolol Tartrate 50 mg 07/10/24 18:22 Metoprolol Tartrate 50 Mg Tablet PO PRN PRN Cardiac Arrhythmia Ondansetron HCl 4 mg 07/10/24 18:22 Ondansetron Odt 4 Mg Tablet TL Q6HR PRN Nausea / Vomiting Ondansetron HCl 4 mg 07/10/24 18:22 07/11/24 08:37 Ondansetron 4 Mg/2 Ml Vial IVP 4 mg Q6HR PRN Administration Nausea / Vomiting Saccharomyces Boulardii 250 mg 07/11/24 08:00 07/11/24 08:56 Saccharomyces Boulardii 250 Mg Capsule PO 250 mg BIDWM KELLEN Administration Sodium Chloride 10 ml 07/10/24 18:22 Sodium Chloride Flush 0.9% 10 Ml Syringe IVP PRN PRN NEEDED PER PROVIDER ORDERS Sodium Chloride 10 ml 07/11/24 01:00 07/11/24 08:56 Sodium Chloride Flush 0.9% 10 Ml Syringe IVP 10 ml 0100,0900,1700 KELLEN Administration Solifenacin 5 mg 07/11/24 09:00 07/11/24 08:56 Solifenacin Succinate 5 Mg Tablet PO 5 mg DAILY KELLEN Administration Objective Vital Signs/Intake & Output Reviewed Vital Signs: Yes Vital Signs: Vital Signs x48h Temp Pulse Resp BP Pulse Ox O2 Flow Rate 07/11/24 08:31 36.4 C L 84 18 152/93 H 96 3 07/11/24 07:49 3 07/11/24 06:29 94 3 Intake & Output: Intake & Output 07/08/24 07/09/24 07/10/24 07/11/24 23:59 23:59 23:59 23:59 Intake Total 370 / 370 1450 / 1450 Output Total 150 / 150 Balance 370 / 370 1300 / 1300 Weight (kg) 64.5 kg Objective General Appearance: positive Alert (But significantly fatigued. I can barely hear his voice.) and Other (Elderly white male, 6 foot tall, 64.5 kg) Eyes Bilateral: positive PERRL and EOMI ENT: positive Dry mucous membranes Neck: positive No JVD; negative Stiff neck Respiratory: positive Chest non-tender, No respiratory distress and Breath sounds nml Cardiovascular: positive Irregularly irregular (Telemetry has atrial fibrillation with ventricular paced beats.) Abdomen: positive Non-tender, No organomegaly, Nml bowel sounds and No distention Skin: positive Dry, Pallor and Other (Knee abrasions from when he fell, and right elbow with mild effusion. But no infection or cellulitis) Extremities: positive Other (Achy right elbow. Aching knees) Neurologic/Psychiatric: positive Oriented x3, CN's nml (2-12) ( low almost an audible voice.) and Motor nml (Except for severe generalized weakness. This gentleman used to be mobile before he got sick with COVID and took daily walks) Lab Results 07/11/24 08:49 07/11/24 04:04 Other Labs: Lab Results x24hrs 07/11/24 07/11/24 07/11/24 Range/Units 08:49 06:15 06:13 WBC 5.0 (4.8-10.8) x10^3/uL RBC 2.22 L (4.70-6.10) 10^6/uL Hgb 8.6 L (14.0-18.0) g/dL Hct 24.5 L (42.0-52.0) % MCV 110.4 H (80.0-94.0) fL MCH 38.7 H (27.0-31.0) pg MCHC 35.1 (32.0-36.0) g/dL RDW 18.9 H (12.0-15.0) % Plt Count 16 L* (130-450) 10^3/uL PT (9.9-12.6) secs INR (0.8-1.2) Sodium (135-145) mmol/L Potassium (3.5-4.5) mmol/L Chloride (101-111) mmol/L Carbon Dioxide (21-32) mmol/L Anion Gap (6-13) BUN (6-20) mg/dL Creatinine (0.6-1.3) mg/dL Estimated GFR (MDRD) (>89) Glucose (74-104) mg/dL Lactic Acid (0.5-2.2) mmol/L Calcium (8.5-10.3) mg/dL Magnesium (1.7-2.3) mg/dL Troponin I High Sens (2.3-19.7) ng/L Procalcitonin Immunoas (<0.5) ng/mL Urine Color Urine Clarity (CLEAR) Urine pH (5.0-7.5) PH Ur Specific [place] (1.002-1.030) Urine Protein (NEGATIVE) mg/dL Urine Glucose (UA) (NEGATIVE) mg/dL Urine Ketones (NEGATIVE) mg/dL Urine Occult Blood (NEGATIVE) Urine Nitrite (NEGATIVE) Urine Bilirubin (NEGATIVE) Urine Urobilinogen (NORMAL) E.U./dL Ur Leukocyte Esterase (NEGATIVE) Urine RBC (0-5) /HPF Urine WBC (0-3) /HPF Ur Squamous Epith Cells (<= Few) Urine Bacteria (None Seen) /HPF Ur Microscopic Review Urine Culture Comments Nasal Influenza B PCR NOT DETECTED Nasal Influenza A PCR NOT DETECTED Nasal RSV (PCR) NOT DETECTED Nasal Screen MRSA (PCR) (NEGATIVE) Nasal SARS-CoV-2 (PCR) DETECTED A Blood Type A POSITIVE Antibody Screen NEGATIVE Crossmatch IS Only See Detail 07/11/24 07/11/24 07/10/24 Range/Units 04:04 00:05 20:00 WBC 4.2 L (4.8-10.8) x10^3/uL RBC 2.19 L (4.70-6.10) 10^6/uL Hgb 8.4 L (14.0-18.0) g/dL Hct 23.9 L (42.0-52.0) % MCV 109.1 H (80.0-94.0) fL MCH 38.4 H (27.0-31.0) pg MCHC 35.1 (32.0-36.0) g/dL RDW 17.8 H (12.0-15.0) % Plt Count 16 L* (130-450) 10^3/uL PT (9.9-12.6) secs INR (0.8-1.2) Sodium 138 (135-145) mmol/L Potassium 4.1 (3.5-4.5) mmol/L Chloride 108 (101-111) mmol/L Carbon Dioxide 23 (21-32) mmol/L Anion Gap 7.0 (6-13) BUN 54 H (6-20) mg/dL Creatinine 1.1 (0.6-1.3) mg/dL Estimated GFR (MDRD) 64 L (>89) Glucose 71 L (74-104) mg/dL Lactic Acid 0.9 (0.5-2.2) mmol/L Calcium 8.0 L (8.5-10.3) mg/dL Magnesium 2.2 (1.7-2.3) mg/dL Troponin I High Sens (2.3-19.7) ng/L Procalcitonin Immunoas 4.11 H* (<0.5) ng/mL Urine Color Urine Clarity (CLEAR) Urine pH (5.0-7.5) PH Ur Specific [place] (1.002-1.030) Urine Protein (NEGATIVE) mg/dL Urine Glucose (UA) (NEGATIVE) mg/dL Urine Ketones (NEGATIVE) mg/dL Urine Occult Blood (NEGATIVE) Urine Nitrite (NEGATIVE) Urine Bilirubin (NEGATIVE) Urine Urobilinogen (NORMAL) E.U./dL Ur Leukocyte Esterase (NEGATIVE) Urine RBC (0-5) /HPF Urine WBC (0-3) /HPF Ur Squamous Epith Cells (<= Few) Urine Bacteria (None Seen) /HPF Ur Microscopic Review Urine Culture Comments Nasal Influenza B PCR Nasal Influenza A PCR Nasal RSV (PCR) Nasal Screen MRSA (PCR) POSITIVE A* (NEGATIVE) Nasal SARS-CoV-2 (PCR) Blood Type Antibody Screen Crossmatch IS Only 07/10/24 07/10/24 07/10/24 Range/Units 14:58 14:55 13:36 WBC (4.8-10.8) x10^3/uL RBC (4.70-6.10) 10^6/uL Hgb (14.0-18.0) g/dL Hct (42.0-52.0) % MCV (80.0-94.0) fL MCH (27.0-31.0) pg MCHC (32.0-36.0) g/dL RDW (12.0-15.0) % Plt Count (130-450) 10^3/uL PT 17.4 H (9.9-12.6) secs INR 1.6 H (0.8-1.2) Sodium (135-145) mmol/L Potassium (3.5-4.5) mmol/L Chloride (101-111) mmol/L Carbon Dioxide (21-32) mmol/L Anion Gap (6-13) BUN (6-20) mg/dL Creatinine (0.6-1.3) mg/dL Estimated GFR (MDRD) (>89) Glucose (74-104) mg/dL Lactic Acid (0.5-2.2) mmol/L Calcium (8.5-10.3) mg/dL Magnesium (1.7-2.3) mg/dL Troponin I High Sens 360.6 H* (2.3-19.7) ng/L Procalcitonin Immunoas (<0.5) ng/mL Urine Color YELLOW Urine Clarity CLEAR (CLEAR) Urine pH 6.0 (5.0-7.5) PH Ur Specific [place] 1.020 (1.002-1.030) Urine Protein 100 H (NEGATIVE) mg/dL Urine Glucose (UA) NEGATIVE (NEGATIVE) mg/dL Urine Ketones 15 H (NEGATIVE) mg/dL Urine Occult Blood SMALL H (NEGATIVE) Urine Nitrite NEGATIVE (NEGATIVE) Urine Bilirubin NEGATIVE (NEGATIVE) Urine Urobilinogen 0.2 (NORMAL) (NORMAL) E.U./dL Ur Leukocyte Esterase NEGATIVE (NEGATIVE) Urine RBC 0-5 (0-5) /HPF Urine WBC 0-3 (0-3) /HPF Ur Squamous Epith Cells RARE Squamous (<= Few) Urine Bacteria None Seen (None Seen) /HPF Ur Microscopic Review INDICATED Urine Culture Comments NOT INDICATED Nasal Influenza B PCR Nasal Influenza A PCR Nasal RSV (PCR) Nasal Screen MRSA (PCR) (NEGATIVE) Nasal SARS-CoV-2 (PCR) Blood Type Antibody Screen Crossmatch IS Only Assessment/Plan Problem List (1) Acute hypoxic respiratory failure: Impression: This is a gentleman who is described without chronic pulmonary disease. Had COVID 10 to 15 days ago. Since that time his had productive cough, generalized malaise, weakness and fatigue. So weak that he fell while trying to do a walk. Chest x-ray on admission shows a secondary bacterial pneumonia. And we are worried that he may have a healthcare acquired pneumonia since he did complete amoxicillin and azithromycin with his last visit with us. Assess the patient was put on cefepime and vancomycin. Blood cultures from July 10 are negative. And his sputum culture is in progress. Gram stain shows less than 10 squamous cells, moderate gram-positive cocci in pairs and clusters and a few white cells. So possibility of staph pneumonia is still present. I will continue the cefepime and vancomycin at this time until sputum cultures say otherwise. I will stop his IV fluid for rehydration. And I will continue the Decadron that is currently being used for his prostate cancer therapy. (2) Healthcare associated bacterial pneumonia: Impression: As above. (3) Acute dehydration: Impression: P.o. intake that is poor, as well as diarrhea. He is currently eating breakfast. He does not drink much fluids at home but he is doing well here. His creatinine was 0.8 at discharge with his last visit. Today's creatinine is 1.1. I will continue to encourage p.o. intake. But I will stop maintenance IV fluids today. His voice is still low today. The patient is describing problems with swallowing. If this continues I will have speech see him tomorrow. (4) Pancytopenia: Impression: Due to active chemotherapy treatment. He has developed worsening thrombocytopenia. With discharge on July 01 he was 138. On admission he was 26. Today he is 16. Hemoglobin was 8.3 at discharge. 10.1 on admission. Today 8.4. Plan: Transfusion of platelet pack and recheck later this afternoon. No need for transfusion of red blood cells at this time. (5) Restless leg syndrome: Impression: After speaking to his primary care provider I will resume his home med dose. He is currently on 15 mg at night. I will increase it to 20 mg at night because this but he receives at home. Because he is having increasing bony pain, his primary care provider and I agreed to keep him on single drug therapy. So we will add methadone 5 mg in the morning. See if that controls the pain. If it does not I may give 5 mg in the morning, then 5 mg at noon with the 20 mg at night. 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 Has a pacemaker in place. Not on anticoagulation due to brain bleed and high fall risk. So far no tacky arrhythmias noted. 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 He is on Lupron, olaparib, and dexamethasone. To follow-up with oncology, Dr. Teran, after he is discharged.
--- NOTE | 2024-07-11 17:08 | PHARMACY PROGRESS NOTE ---
Best Possible Medication History Admit Date and Time: 07/10/24 1704 Home Medications Medication Instructions Recorded Confirmed Type polyethylene glycol 3350 17 gram 17 g PO DAILY 03/19/21 07/11/24 History oral powder packet olaparib 150 mg tablet (Lynparza) 300 mg (2 x 150 mg) PO BID #60 tabs 04/26/24 07/11/24 Rx abiraterone 250 mg tablet 250 mg PO DAILY #30 tabs 06/29/24 07/11/24 Rx methadone 10 mg tablet 15 mg PO HS 07/10/24 07/11/24 History acetaminophen 500 mg tablet 500 mg PO BID PRN pain 07/11/24 07/11/24 History (Tylenol Extra Strength) dexamethasone 1 mg tablet 0.5 mg PO DAILY 07/11/24 07/11/24 History Processed by: Pharmacy (Medication reconciliation completed by Form CarpenterJia) Medications reviewed in ED?: No Medication History completed: Yes Patient Interview: Completed Secondary Source(s): Other family member and Insurance records [facility] Statement: As the person ultimately responsible for medication therapy, providers are able to order a medication from an existing home medication list in [facility] via the "Reconcile Routine" prior to Confirmation of that medication by cad application support specialist. Such practice is discouraged except when the physician, in their clinical judgment, deems that a medical need exists for a medication without regard to previous use.
[2024-07-11] MEDS: CEFEPIME 2 GM VIAL IVP SCH (21:56)
[2024-07-12 05:14] LABS: BASOPHILS % (AUTO) 0.4 %; EOSINOPHILS % (AUTO) 0.4 %; HCT - HEMATOCRIT 23.5 % (42.0-52.0); HGB - HEMOGLOBIN 8.2 g/dL (14.0-18.0); LYMPHOCYTES # (AUTO) 0.8 10^3/uL (1.5-3.5); LYMPHOCYTES % (AUTO) 11.1 %; MEAN CORPUSCULAR HEMOGLOBIN 38.1 pg (27.0-31.0); MEAN CORPUSCULAR HGB CONC 34.9 g/dL (32.0-36.0); MEAN CORPUSCULAR VOLUME 109.3 fL (80.0-94.0); MONOCYTES # (AUTO) 0.3 10^3/uL (0.0-1.0); MONOCYTES % (AUTO) 4.8 %; NEUTROPHILS # (AUTO) 5.4 10^3/uL (1.5-6.6); NEUTROPHILS % (AUTO) 79.3 %; NRBC ABSOLUTE COUNT (AUTO) 0.04 x10^3/uL; NUCLEATED RED BLOOD CELLS AUTO 0.6 /100WBC; PLT - PLATELET COUNT 52 10^3/uL (130-450); RED BLOOD COUNT 2.15 10^6/uL (4.70-6.10); RED CELL DISTRIBUTION WIDTH 20.7 % (12.0-15.0); WHITE BLOOD COUNT 6.8 x10^3/uL (4.8-10.8)
[2024-07-12 05:16] LABS: SLIDE REVIEW? Indicated
[2024-07-12 05:39] LABS: POTASSIUM 4.1 mmol/L (3.5-4.5)
[2024-07-12 05:53] LABS: PLATELET ESTIMATE, MANUAL DECREASED (<130,000) (NORMAL); PLATELET MORPHOLOGY NORMAL APPEARANCE (NORMAL)
[2024-07-12] MEDS: DEXTROSE 50% ABBOJECT 25 GM/50 ML SYRINGE IVP ONE (06:32)
[2024-07-12] MEDS: DEXTROSE 5% 1,000 ML IV SCH (06:35)
[2024-07-12] MEDS: MULTIVITAMIN W/MINERALS TABLET PO SCH (09:38)
[2024-07-12] MEDS: METHADONE 5 MG TABLET PO SCH (09:38)
[2024-07-12 12:09] LABS: ADENOVIRUS F 40/41 Not Detected (Not Detected); ASTROVIRUS Not Detected (Not Detected); C DIFFICILE TOXIN A/B Not Detected (Not Detected); CAMPYLOBACTER Not Detected (Not Detected); CRYPTOSPORIDIUM Not Detected (Not Detected); CYCLOSPORA CAYETANENSIS Not Detected (Not Detected); ENTAMOEBA HISTOLYTICA Not Detected (Not Detected); ENTEROAGGREGATIVE E COLI Not Detected (Not Detected); ENTEROPATHOGENIC E COLI Not Detected (Not Detected); ENTEROTOXIGENIC E COLI Not Detected (Not Detected); GIARDIA LAMBLIA Not Detected (Not Detected); NOROVIRUS GI/GII Not Detected (Not Detected); PLESIOMONAS SHIGELLOIDES Not Detected (Not Detected); ROTAVIRUS A Not Detected (Not Detected); SALMONELLA Not Detected (Not Detected); SAPOVIRUS Not Detected (Not Detected); SHIGA-TOXIN-PRODUCING E COLI Not Detected (Not Detected); SHIGELLA/ENTEROINVASIVE E COLI Not Detected (Not Detected); VIBRIO Not Detected (Not Detected); VIBRIO CHOLERAE Not Detected (Not Detected); YERSINIA ENTEROCOLITICA Not Detected (Not Detected)
[2024-07-12] MEDS: PETROLATUM WHITE 5 GM PACKET TOP PRN (16:33)
[2024-07-12 16:37] LABS: VANCOMYCIN,TROUGH 22.1 ug/mL
--- NOTE | 2024-07-12 16:53 | PHARMACY PROGRESS NOTE ---
Vancomycin Therapy Monitoring Vancomycin Therapy Goals Treatment Indication: Pneumonia Vancomycin Target Range: Vancomycin AUC Target Range 400-600 mcg*h/ml Assessment of Current Therapy Vancomycin Loading Dose (GM, if applicable): 1.25gx1 Current Vancomycin Maintenance Regimen (if applicable): 1g q12h Vancomycin Current Regimen: Supratherapeutic Levels Estimated AUC (mcg*hr/ml): 671 Plan: Pharmacy recommendation: Decrease dose (holding for an extra 5 hours) New Regimen (Enter new dose and interval): 750mg every 12 hours, anticipated AUC: 503 Vancomycin Level Recommendation: Vancomycin Level Recommendation (after 4 doses)
--- NOTE | 2024-07-12 19:05 | PROVIDER PROGRESS NOTE ---
Subjective Prog Note Date Prog Note Date: 07/12/24 Prog Note Time: 19:02 Subjective Subjective: Patient was seen this morning with her daughter and she had many questions. I have stopped IV fluids yesterday to see if he can eat on his own. He is not. And this morning he was hypoglycemic so D5 drip was started for hydration and for hypoglycemia. Family is taking turns being with him. She is not the DPOA, her sister is. Mom was going to be coming in today. And sister was possibly going to be coming in tomorrow. As such I requested a family conference so that way all the family could be together. And at 5:30 PM or so I was able to meet with the son on the phone, at the bedside, and his 2 daughters. Questions asked were: 1. Update on his overall condition. I explained that I feel that he has a bacterial pneumonia superimposed on a recent COVID infection. That has sharply deteriorated his status and he has generalized weakness, respiratory failure, failure to thrive, with inability to swallow. His blood cultures have been negative. Sputum culture done on the was positive on the with staff aureus. He had less than 10 squamous cells, moderate gram-positive cocci in pairs and clusters and few white cells on Gram stain. Sensitivities are pending. I explained to them that I believe he has staph aureus pneumonia. He is on vancomycin for that until sensitivities return. 2. He has been unable to swallow and has had a poor appetite for over a week. The inability to swallow was evaluated by speech therapy this morning. He has marked reduction in normal reflexive oropharyngeal swallowing. He needs numerous prompts to be able to swallow his food bolus. He is at risk for aspiration. Speech therapy has requested a pured diet, and moderate thick liquids. We think that the reduction in swallowing is overall due to generalized weakness after his COVID and current pneumonia. The patient was able to tell speech therapy that he has been unable to eat over the last week or so not only due to lack of smell and anorexia, but he is afraid of swallowing incorrectly. Daughter reports he is not eaten much in 10 days. 3. They asked about my overall thought process about his deterioration. I explained that I think this is, unfortunately, an expected complication of an elderly person with COVID. He has really had a sharp deterioration and I do not know if he is going to survive this. They disagree with this thought process and feels that he was ambulatory 2 weeks ago. Eating. Taking walks. Doing well. That his cancer was under control. He had his fall after being sick with COVID for 5 to 7 days. Required hospitalization. Discharge. But did not really improve and continue to deteriorate at home and was brought in again because of another fall. They feel that he could improve if given enough nutrition and support to get him through this acute event.I had estimated that he might not be with us in a year. They disagree with that thought process and feel he could be with this much longer. 4. They are asking if he could please be transferred to a higher level of care. They worry about his atrial fibrillation. They worry about his nutrition and we discussed feeding tube. The family was in agreement that they all do want him to have a feeding tube. They also asked, that in the end, if he does well enough to be discharged can he be discharged with a feeding tube at home. I explained that he could go home with a feeding tube. 5. They asked about his admission diagnosis for "heart damage" and some "calcification" seen on chest x-ray. At that time there was a possibility being transferred to [facility] for elevated troponins. But when a repeat set of troponins had come down, [facility] cardiology did not feel the patient warranted transfer. They wonder if it is time for him to be transferred on the basis of the elevated troponins and the above atrial fibrillation. 6. They asked if I could please stop the methadone I had started this morning. I explained that I had spoken to Dr. Ortez yesterday after the patient was telling me that he was having bony pain in his left leg. When it asked the patient if there is anything he wanted me to take care of more than anything he had responded "the pain in his leg". And as such I gave him 5 mg of methadone this morning and I am continuing the methadone at night. Family is asked me to please stop the daily methadone and only give him methadone at night. They feel that it is sedating him too much today. Also worried that the methadone will constipate him. They want to know why he is not having bowel movements. I explained that they had told me that he been having diarrhea, and has not eaten solid food in 10 days, and I would not expect him to have bowel movements if there is nothing in his bowels. But they want us to be prepared to give him stool protocol if you start tube feedings. Current Medications Current Medications Current Medications: Current Medications Generic Name Dose Route Start Last Admin Trade Name Frebean PRN Reason Stop Dose Admin Acetaminophen 650 mg 07/10/24 18:22 07/11/24 14:16 Acetaminophen 325 Mg Tablet PO 650 mg Q4HR PRN Administration Pain 1 to 4 Alcohol 1 amp 07/11/24 09:00 07/12/24 09:39 Ethyl Alcohol 62% Swab Ampule DAYNA 1 amp BID KELLEN Administration Cefepime HCl 2 gm 07/11/24 21:00 07/12/24 08:34 Cefepime 2 Gm Vial IVP 2 gm BID KELLEN Administration Dextrose 1,000 mls @ 100 mls/hr 07/12/24 07:00 07/12/24 16:41 D5w IV 100 mls/hr .Q10H KELLEN Administration Vancomycin HCl 0.75 gm/ Sodium 250 mls @ 166.667 mls/hr 07/12/24 22:00 Chloride IV Q12H KELLEN Methadone HCl 15 mg 07/10/24 21:00 07/11/24 21:56 Methadone 5 Mg Tablet PO 15 mg HS KELLEN Administration Metoprolol Tartrate 50 mg 07/10/24 18:22 Metoprolol Tartrate 50 Mg Tablet PO PRN PRN Cardiac Arrhythmia Mirtazapine 15 mg 07/12/24 21:00 Mirtazapine 15 Mg Tablet PO QPM KELLEN Multivitamins/Minerals 1 tab 07/12/24 08:00 07/12/24 09:38 Multivitamin W/Minerals Tablet PO 1 tab DAILYWM KELLEN Administration Ondansetron HCl 4 mg 07/10/24 18:22 Ondansetron Odt 4 Mg Tablet TL Q6HR PRN Nausea / Vomiting Ondansetron HCl 4 mg 07/10/24 18:22 07/12/24 16:33 Ondansetron 4 Mg/2 Ml Vial IVP 4 mg Q6HR PRN Administration Nausea / Vomiting Petrolatum 1 applic 07/12/24 16:25 07/12/24 16:33 Petrolatum White 5 Gm Packet TOP 1 applic PRN PRN Administration Dry Lips Saccharomyces Boulardii 250 mg 07/11/24 08:00 07/12/24 16:32 Saccharomyces Boulardii 250 Mg Capsule PO 250 mg BIDWM KELLEN Administration Sodium Chloride 10 ml 07/10/24 18:22 Sodium Chloride Flush 0.9% 10 Ml Syringe IVP PRN PRN NEEDED PER PROVIDER ORDERS Sodium Chloride 10 ml 07/11/24 01:00 07/12/24 16:33 Sodium Chloride Flush 0.9% 10 Ml Syringe IVP 10 ml 0100,0900,1700 KELLEN Administration Solifenacin 5 mg 07/11/24 09:00 07/12/24 09:38 Solifenacin Succinate 5 Mg Tablet PO 5 mg DAILY KELLEN Administration Sterile Water 30 ml 07/11/24 21:00 07/12/24 08:35 Water For Injection,Sterile 10 Ml Vial MC 30 ml BID KELLEN Administration Objective Vital Signs/Intake & Output Reviewed Vital Signs: Yes Vital Signs: Vital Signs x48h Temp Pulse Resp BP BP Pulse Ox O2 Flow Rate 07/12/24 16:20 20 92/60 93 3 07/12/24 15:50 36.4 C L 76 20 84/50 L 91 L 3 Intake & Output: Intake & Output 07/09/24 07/10/24 07/11/24 07/12/24 23:59 23:59 23:59 23:59 Intake Total 370 / 370 3085 / 3085 1382 / 1382 Output Total 325 / 325 250 / 250 Balance 370 / 370 2760 / 2760 1132 / 1132 Weight (kg) 64.5 kg Objective General Appearance: positive Lethargic (Much more lethargic than yesterday. He was able to speak to me, answer questions with an almost an audible voice. Since the methadone this morning he is very sleepy with sonorous respiration.) ENT: positive Dry mucous membranes (Due to open mouth breathing. Nasal cannula in place.) Neck: negative Stiff neck Respiratory: positive No respiratory distress (No use of accessory muscles. He is sitting upright.) and Other (Coarse upper airway breath sounds because of the snoring and mouth breathing) Cardiovascular: positive Irregularly irregular; negative Tachycardia or Bradycardia Abdomen: positive Non-tender, No organomegaly and Nml bowel sounds Skin: positive Dry and Pallor; negative Diaphoresis Extremities: positive Full ROM and Pedal edema (Mild.) Neurologic/Psychiatric: positive Oriented x3 (Wakes to my voice. But very sedated today. Follows commands. Forgetful.) Lab Results 07/13/24 05:29 07/13/24 05:29 Other Labs: Lab Results x24hrs 07/12/24 07/12/24 07/12/24 Range/Units 16:14 06:59 06:21 WBC (4.8-10.8) x10^3/uL RBC (4.70-6.10) 10^6/uL Hgb (14.0-18.0) g/dL Hct (42.0-52.0) % MCV (80.0-94.0) fL MCH (27.0-31.0) pg MCHC (32.0-36.0) g/dL RDW (12.0-15.0) % Plt Count (130-450) 10^3/uL Neut # (Auto) (1.5-6.6) 10^3/uL Lymph # (Auto) (1.5-3.5) 10^3/uL Jerome # (Auto) (0.0-1.0) 10^3/uL Eos # (Auto) (0.0-0.7) 10^3/uL Baso # (Auto) (0.0-0.1) 10^3/uL Absolute Nucleated RBC x10^3/uL Nucleated RBC % /100WBC Manual Slide Review Platelet Estimate (NORMAL) Platelet Morphology (NORMAL) RBC Morph Micro Appear (NORMAL) Sodium (135-145) mmol/L Potassium (3.5-4.5) mmol/L Chloride (101-111) mmol/L Carbon Dioxide (21-32) mmol/L Anion Gap (6-13) BUN (6-20) mg/dL Creatinine (0.6-1.3) mg/dL Estimated GFR (MDRD) (>89) Glucose (74-104) mg/dL POC Whole Bld Glucose 123 49 (70-100) mg/dL Calcium (8.5-10.3) mg/dL Stl C. cayetanensis PCR (Not Detected) Stool Rotavirus A PCR (Not Detected) Stl Adenov F 40/41 PCR (Not Detected) Stool Astrovirus (PCR) (Not Detected) Stool Campylobacter PCR (Not Detected) Stl C. diff Tox A/B PCR (Not Detected) Stool Cryptosporidium PCR (Not Detected) Stl Sh Tox Pr E STEC PCR (Not Detected) Stool E coli O157 PCR (Not Detected) Stl Enterotoxigenic E PCR (Not Detected) Stool EPEC (PCR) (Not Detected) Stl E. histolytica PCR (Not Detected) Stool Giardia Lamblia PCR (Not Detected) Stl P. shigelloides PCR (Not Detected) Stool Salmonella PCR (Not Detected) Stool Sapovirus (PCR) (Not Detected) Stl Shigella/EIEC PCR (Not Detected) St Y.enterocolitica PCR (Not Detected) Stool Vibrio (PCR) (Not Detected) Stl Vibrio cholerae PCR (Not Detected) Stl Enteroaggr Ecoli PCR (Not Detected) Stl Norovirus GI/GII PCR (Not Detected) Last Dose Date UNKNOWN Last Dose Time UNKNOWN Vancomycin Trough 22.1 ug/mL 07/12/24 07/12/24 07/12/24 Range/Units 04:54 04:54 04:54 WBC (4.8-10.8) x10^3/uL RBC (4.70-6.10) 10^6/uL Hgb (14.0-18.0) g/dL Hct (42.0-52.0) % MCV (80.0-94.0) fL MCH (27.0-31.0) pg MCHC (32.0-36.0) g/dL RDW (12.0-15.0) % Plt Count (130-450) 10^3/uL Neut # (Auto) (1.5-6.6) 10^3/uL Lymph # (Auto) (1.5-3.5) 10^3/uL Jerome # (Auto) (0.0-1.0) 10^3/uL Eos # (Auto) (0.0-0.7) 10^3/uL Baso # (Auto) (0.0-0.1) 10^3/uL Absolute Nucleated RBC x10^3/uL Nucleated RBC % /100WBC Manual Slide Review Platelet Estimate (NORMAL) Platelet Morphology (NORMAL) RBC Morph Micro Appear 1+ POLYCHROMASIA 1+ OVALOCYTES 1+ HYPOCHROMASIA (NORMAL) Sodium 140 (135-145) mmol/L Potassium 4.1 (3.5-4.5) mmol/L Chloride 111 (101-111) mmol/L Carbon Dioxide 25 (21-32) mmol/L Anion Gap 4.0 L (6-13) BUN 50 H (6-20) mg/dL Creatinine 1.0 (0.6-1.3) mg/dL Estimated GFR (MDRD) 72 L (>89) Glucose 52 L* (74-104) mg/dL POC Whole Bld Glucose (70-100) mg/dL Calcium 8.0 L (8.5-10.3) mg/dL Stl C. cayetanensis PCR (Not Detected) Stool Rotavirus A PCR (Not Detected) Stl Adenov F 40/41 PCR (Not Detected) Stool Astrovirus (PCR) (Not Detected) Stool Campylobacter PCR (Not Detected) Stl C. diff Tox A/B PCR (Not Detected) Stool Cryptosporidium PCR (Not Detected) Stl Sh Tox Pr E STEC PCR (Not Detected) Stool E coli O157 PCR (Not Detected) Stl Enterotoxigenic E PCR (Not Detected) Stool EPEC (PCR) (Not Detected) Stl E. histolytica PCR (Not Detected) Stool Giardia Lamblia PCR (Not Detected) Stl P. shigelloides PCR (Not Detected) Stool Salmonella PCR (Not Detected) Stool Sapovirus (PCR) (Not Detected) Stl Shigella/EIEC PCR (Not Detected) St Y.enterocolitica PCR (Not Detected) Stool Vibrio (PCR) (Not Detected) Stl Vibrio cholerae PCR (Not Detected) Stl Enteroaggr Ecoli PCR (Not Detected) Stl Norovirus GI/GII PCR (Not Detected) Last Dose Date Last Dose Time Vancomycin Trough ug/mL 07/12/24 07/10/24 Range/Units 04:54 19:50 WBC 6.8 (4.8-10.8) x10^3/uL RBC 2.15 L (4.70-6.10) 10^6/uL Hgb 8.2 L (14.0-18.0) g/dL Hct 23.5 L (42.0-52.0) % MCV 109.3 H (80.0-94.0) fL MCH 38.1 H (27.0-31.0) pg MCHC 34.9 (32.0-36.0) g/dL RDW 20.7 H (12.0-15.0) % Plt Count 52 L (130-450) 10^3/uL Neut # (Auto) 5.4 (1.5-6.6) 10^3/uL Lymph # (Auto) 0.8 L (1.5-3.5) 10^3/uL Jerome # (Auto) 0.3 (0.0-1.0) 10^3/uL Eos # (Auto) 0.0 (0.0-0.7) 10^3/uL Baso # (Auto) 0.0 (0.0-0.1) 10^3/uL Absolute Nucleated RBC 0.04 x10^3/uL Nucleated RBC % 0.6 /100WBC Manual Slide Review Indicated Platelet Estimate DECREASED (<130,000) (NORMAL) Platelet Morphology NORMAL APPEARANCE (NORMAL) RBC Morph Micro Appear 1+ ANISOCYTOSIS (NORMAL) Sodium (135-145) mmol/L Potassium (3.5-4.5) mmol/L Chloride (101-111) mmol/L Carbon Dioxide (21-32) mmol/L Anion Gap (6-13) BUN (6-20) mg/dL Creatinine (0.6-1.3) mg/dL Estimated GFR (MDRD) (>89) Glucose (74-104) mg/dL POC Whole Bld Glucose (70-100) mg/dL Calcium (8.5-10.3) mg/dL Stl C. cayetanensis PCR Not Detected (Not Detected) Stool Rotavirus A PCR Not Detected (Not Detected) Stl Adenov F 40/41 PCR Not Detected (Not Detected) Stool Astrovirus (PCR) Not Detected (Not Detected) Stool Campylobacter PCR Not Detected (Not Detected) Stl C. diff Tox A/B PCR Not Detected (Not Detected) Stool Cryptosporidium PCR Not Detected (Not Detected) Stl Sh Tox Pr E STEC PCR Not Detected (Not Detected) Stool E coli O157 PCR Not applicable (Not Detected) Stl Enterotoxigenic E PCR Not Detected (Not Detected) Stool EPEC (PCR) Not Detected (Not Detected) Stl E. histolytica PCR Not Detected (Not Detected) Stool Giardia Lamblia PCR Not Detected (Not Detected) Stl P. shigelloides PCR Not Detected (Not Detected) Stool Salmonella PCR Not Detected (Not Detected) Stool Sapovirus (PCR) Not Detected (Not Detected) Stl Shigella/EIEC PCR Not Detected (Not Detected) St Y.enterocolitica PCR Not Detected (Not Detected) Stool Vibrio (PCR) Not Detected (Not Detected) Stl Vibrio cholerae PCR Not Detected (Not Detected) Stl Enteroaggr Ecoli PCR Not Detected (Not Detected) Stl Norovirus GI/GII PCR Not Detected (Not Detected) Last Dose Date Last Dose Time Vancomycin Trough ug/mL ABX Reporting Has patient been on IV antibiotics over the past 48 hours?: Yes Assessment/Plan Problem List (1) Acute hypoxic respiratory failure: Impression: This is a gentleman who is described without chronic pulmonary disease. Had COVID 10 to 15 days ago. Since that time his had productive cough, generalized malaise, weakness and fatigue. So weak that he fell while trying to do a walk.He was hospitalized as near syncope. Discharged the next day. Returns with continuing weakness and fatigue. Chest x-ray on this admission shows a secondary bacterial pneumonia. And we are worried that he may have a healthcare acquired pneumonia since he did complete amoxicillin and azithromycin with his last visit with us. the patient was put on cefepime and vancomycin. Blood cultures from July 10 are negative. And his sputum culture are now showing Staph aureus. Gram stain shows less than 10 squamous cells, moderate gram-positive cocci in pairs and clusters and a few white cells. Vancomycin trough will be done today to evaluate for toxicity. Today is day #2 of antibiotics. I have spoken to Cardiology special education director at [facility] [place] and she will see the paitent on consult. I then spoke to Dr. Daley who is the hosptalist special education director, and she has so graciously accepted the patient in transfer after I discussed the case at length. While she feels that his acute illness precludes agressive cardiac interventions, that he is on abx appropriately, she feels they may be able to offer help with problem #4 as below. (2) Healthcare associated bacterial pneumonia: Impression: As above.With his dysphagia identified today, could there be aspiration? I will add flagyl. (3) Acute dehydration: Impression: P.o. intake that is poor, as well as diarrhea. Saw him yesterday and he was trying to eat breakfast. But nursing reports that it was unsuccessful. And I had him see speech therapy today and he has severely impacted oropharyngeal mobility. As such I am changing him to a pured diet, with moderately thick liquids. Maintenance fluids were stopped yesterday in an effort to see if he could drink on his own yesterday. He did not so maintenance fluids have been resumed today with D5 since he is hypoglycemic. I have also started remeron to see if that would impact hunger but the patient expressed to that he was afraid to swallow. Family is in agreement that they want a feeding tube. If he is still here in the morning I will place a Rashad tube. I will give a 500 cc bolus as well. (4) Pancytopenia: Impression: Previous hospitalist feels this was due to active chemotherapy but the patient's regemin is a mab, antihormonal and a steroid. No chemotherapy. . Family feels that his disease is under control and not progressing. He had developed worsening thrombocytopenia during this stay. With discharge on July 01 he was 138. On admission he was 26. Yesterday he was 16. transfused and he is 52 today. He is not on lovenox. Hemoglobin was 8.3 at discharge last admit. 10.1 on admission>> 8.4>>8.2 today. Unclear why he is with thrombocytopenia. Not on Lovenox and not any medications that would do this. Today he does not need transfusion. Will continue to monitor with daily CBC. Covid can cause ITP 18-21 days after illness. I will add Decadron for a one time dose of 10 mg IVP tonight and see if CBC responds in the am. I have described this drop to the accepting Hospitalist at [facility], Dr. Daley, and she will have Oncology consult . (5) Restless leg syndrome: Impression: After speaking to his primary care provider I resumed his home med dose and increased the dose we had him on of 15 mg to 20 mg home dose for tonight. I also added 5 mg this morning for pain. This morning dose has caused sedation today. So I am stopping the am dose and reducing his methadone tonight at 10 mg due to sedation. 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 Has a pacemaker in place. Not on anticoagulation due to brain bleed and high fall risk. So far no tacky arrhythmias noted. Family is in agreement and feels that his atrial fibrillation needs evaluation. And the abnormal troponins from admission should also be reevaluated. I have spoken to cardiology on-call at [facility], and that is . We discussed his admitting troponins and agreed with the assessment offered by [facility] special education director cardiology that night. She is willing to see this patient in consult but will not be admitting. So the transfer center asked me to speak to a Hospitalist and Dr. Daley accepted. 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 He is on Lupron, olaparib, and dexamethasone 0.5 mg daily. To follow-up with oncology, Dr. Teran, after he is discharged.He is a full code. His family is also going to switch care to Kamron Wick (who previously cared for the patient when [facility] was sending physicians to our clinics).
[2024-07-12] MEDS: DEXAMETHASONE 10 MG/ML VIAL IVP ONE (21:03)
[2024-07-12] MEDS: metroNIDAZOLE 500 MG/100 ML 500 MG/100 ML BAG IV SCH (21:10)
[2024-07-12] MEDS: MIRTAZAPINE 15 MG TABLET PO SCH (21:14)
[2024-07-12] MEDS: LACTATED RINGERS 500 ML IV ONE (21:15)
[2024-07-12] MEDS: VANCOMYCIN INJ 0.75 GM in SODIUM CHLORIDE 0.9% 250 ML IV SCH (22:28)
[2024-07-13] MEDS: METHADONE 5 MG TABLET PO ONE (05:21)
[2024-07-13 05:56] LABS: BASOPHILS % (AUTO) 0.4 %; HCT - HEMATOCRIT 20.7 % (42.0-52.0); HGB - HEMOGLOBIN 7.3 g/dL (14.0-18.0); LYMPHOCYTES % (AUTO) 6.4 %; MEAN CORPUSCULAR HEMOGLOBIN 37.8 pg (27.0-31.0); MEAN CORPUSCULAR HGB CONC 35.3 g/dL (32.0-36.0); MEAN CORPUSCULAR VOLUME 107.3 fL (80.0-94.0); NEUTROPHILS % (AUTO) 87.1 %; PLT - PLATELET COUNT 44 10^3/uL (130-450); RED BLOOD COUNT 1.93 10^6/uL (4.70-6.10); RED CELL DISTRIBUTION WIDTH 19.7 % (12.0-15.0); WHITE BLOOD COUNT 8.3 x10^3/uL (4.8-10.8)
[2024-07-13 06:11] LABS: CALCIUM 7.7 mg/dL (8.5-10.3); CREATININE 1.1 mg/dL (0.6-1.3); POTASSIUM 4.3 mmol/L (3.5-4.5)
[2024-07-13 06:22] LABS: ABNORMAL LYMPHS % (MANUAL) 0 %
[2024-07-13 07:06] LABS: BAND NEUTROPHILS % (MANUAL) 20 %; LYMPHOCYTES # (MANUAL) 0.3 10^3/uL (1.5-3.5); LYMPHOCYTES % (MANUAL) 4 %; METAMYELOCYTES % (MANUAL) 1 %; MONOCYTES # (MANUAL) 0.2 10^3/uL (0.0-1.0); MYELOCYTES % (MANUAL) 1 %; NEUTROPHILS # (MANUAL) 7.5 10^3/uL (1.5-6.6); PROMYELOCYTES % (MANUAL) 1 %
[2024-07-13 07:07] LABS: DIFFERENTIAL COMMENT MANUAL DIFFERENTIAL; PLATELET ESTIMATE, MANUAL DECREASED (<130,000) (NORMAL); PLATELET MORPHOLOGY NORMAL APPEARANCE (NORMAL); WBC MORPHOLOGY (MULTIPLE) 1+ TOXIC GRANULATION (NORMAL)
[2024-07-13 08:21] VITALS: TEMP 97.7
--- NOTE | 2024-07-13 12:26 | PROCEDURE REPORT ---
Hospitalist Procedure Note Procedure Note Procedure Note: Procedure: Placement of nasogastric feeding tube Proceduralist: Lisa Smith PA-C CPT 07642 Indications per family request this patient needs supplemental nutrition due to his inability to swallow. Procedure in detail: Dobbhoff was inserted into the right nare and passed without issue to a depth of 55 cm. Initial x-ray shows slightly shallow placement. Advanced to 65 cm. X- ray at at bedside shows tube located adjacent to the gastric air bubble. With nursing assistance tube was secured. reviewed the film again at my desk and shortly later received a call from radiologist. tube in in the right lower lung field. immediately removed. considered replacement of the tube, however, with patient transferring in less than one hour, safest not to repeat procedure.
--- NOTE | 2024-07-13 13:12 | XRAY Report ---
PROCEDURE: XR Chest for Line Placement INDICATIONS: dobhoff placement TECHNIQUE: One view of the chest was acquired. COMPARISON: Chest x-ray 07/03/2019 FINDINGS: Surgical changes and devices: Pacemaker. Presumed nasogastric tube projects over the right lung base . Lungs and pleura: Diffuse pulmonary opacities. Mediastinum: Mediastinal contours appear normal. Heart size is enlarged. Bones and chest wall: No suspicious bony lesions. Overlying soft tissues appear unremarkable. IMPRESSION: Nasogastric tube overlies the right lung base. Repositioning is recommended. Bilateral pulmonary opacities suggestive of infection or inflammation. Underlying edema or other etio logies cannot be excluded. The above findings were discussed with Lisa SANCHEZ on 07/13/24 at 1:10pm Reviewed by: Aliya Dawn MD on 07/13/2024 1:10 PM PDT Approved by: Aliya Dawn MD on 07/13/2024 1:10 PM PDT Station ID: [id number]
[2024-07-13 15:03] VITALS: BP 135/90; O2SAT 96
--- NOTE | 2024-07-13 16:00 | Discharge Summary ---
Discharge Summary Admit Date: 07/10/24 Discharge Date: 07/13/24 Discharging Provider: Lexy Mancera MD Primary Care Provider: LUCRETIA Lezama Code Status: Do Not Attempt Resuscitation Discharge Facility Name: [facility] DIAGNOSES Discharge Diagnoses with Status of Each Condition: 1. Acute hypoxic respiratory failure secondary #2 2. MRSA bacterial pneumonia 3. History of COVID 2 weeks ago 4. Acute dehydration 5. Oropharyngeal dysphagia due to weakness 6. Pancytopenia with severe thrombocytopenia requiring transfusion 7. Restless leg syndrome 8. Tachybradycardia syndrome with atrial fibrillation 9. 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 79 yo male who has a hx of metastatic prostate cancer, and was dx with covid about a week ago presents to the ED with a presumed syncopal episode earlier today. He likes to take a walk every day, and today, instead of waiting for his daughter, he went alone. He thinks that he got too hot while walking in the sun and fell down in the road. he was picked up by neighbors and came ot the ED with his daughter. He and his have been isolating due to their illness, but daughter says that he has been slighly more confused since he has been sick. He is vague with regards to details of his episode. He states that he also has a hx of a fib, not anticoagulated due to history of "brain bleed". he is not able to tell me more about this. He cannot tell me if it was related to trauma, or a hypertensive hemorrhage. denies crainiotomy. tells me "they watched it". He has been sick for about 10 days with a cough, was sick several days before. they both have now been dx with covid. no paxlovid given,as sx present for too long prior to seeking healthcare. Also fever at triage today 39.2 States that he wants to be full code. his is his surrogate medical decision maker. CONSULTS | PROCEDURES Procedures: Chest x-ray on admission had a focal right apical pneumonia. Patchy bilateral mid to lower lung field infiltrates indicating areas of pneumonia. Repeat chest x-ray done on the day of discharge for NG tube placement recommended repositioning. Blood cultures from July 10 had no growth after 2 days Fecal occult blood was negative on July 10 Sputum culture from July 10 grew out MRSA. He had less than 10 squamous cells per high-powered field, moderate gram-positive cocci in pairs and clusters, and a few white cells on the Gram stain HOSPITAL COURSE Hospital Course: (1) Acute hypoxic respiratory failure: Impression: This is a gentleman who is described without chronic pulmonary disease. Had COVID 10 to 15 days ago. Since that time his had productive cough, generalized malaise, weakness and fatigue. So weak that he fell while trying to do a walk.He was hospitalized as near syncope. Discharged the next day. Returns with continuing weakness and fatigue. Chest x-ray on this admission shows a secondary bacterial pneumonia. And we are worried that he may have a healthcare acquired pneumonia since he did complete amoxicillin and azithromycin with his last visit with us. the patient was put on cefepime and vancomycin. Blood cultures from July 10 are negative. And his sputum culture are now showing Staph aureus that is Methicillin Resistant. Gram stain shows less than 10 squamous cells, moderate gram-positive cocci in pairs and clusters and a few white cells. Vancomycin trough done to evaluate for toxicity and it was 22.0 Today is day #4 of antibiotics. On hospital day #3 the family had a conference. It was done at my request. Many questions were being asked for multiple family members at different times. It was light playing a game of telephone. I was able to have a very long talk with him on the evening of July 12 and they strongly felt that they wanted more aggressive therapy with specialty care. Specifically they were looking at a cardiology consult because he had elevated troponins on admission (Kevin had already stated that they were not going to do any interventions for troponin of 360). I spoke to cardiology on-call and she was gracious enough to say that she would see the patient in consult but would not necessarily admit. She was not going to guarantee cardiology intervention. I then spoke to the hospitalist on- call and they accepted the patient in transfer on the basis of problem #4, specifically thrombocytopenia. (2) Healthcare associated MRSA bacterial pneumonia: Impression: As above. With his dysphagia identified by Speech Therapy, could there be aspiration? I added flagyl on 07/12 and discontined Cefepime today. (3) Acute dehydration: Impression: P.o. intake that was poor, as well as diarrhea. He had also not eaten for days even before admisison. There were very rare occasions where he would agree to try and eat something. But it was unsuccessful. He been complaining of problems with swallowing for several days even before admission. No appetite. No sense of smell. I had him see speech therapy and he has severely impacted oropharyngeal mobility. As such I am changing him to a pured diet, with moderately thick liquids. Maintenance fluids were stopped in an effort to see if he could drink on his own but he did not. Maintenance fluids were resumed with D5 since he was hypoglycemic 07/12. I have also started remeron to see if that would impact hunger but the patient expressed to ST that he was afraid to swallow.In the family conference I did discuss his inability to swallow well. They were very anxious to get him fed and asked for a feeding tube. They even wanted to do baby emergency to place the tube on the evening of July 12. I declined that request but did have a feeding tube placed on the day of discharge. Initial tube placement showed it to be in the right bronchus. As such the tube was pulled and not replaced. Family is very anxious to have his nutrition status addressed. They would like temporary placement of a feeding tube with the idea that they would consider a permanent feeding tube if it was needed. (4) Pancytopenia: Impression: Previous hospitalist feels this was due to active chemotherapy but the patient's regimen is a mab, antihormonal and a steroid. No chemotherapy. . Family feels that his disease is under control and not progressing. NowThey had asked my opinion about his prognosis and I stated that I thought it was a poor prognosis. He already had a stage IV cancer and a COVID infection and staph pneumonia. They disagreed with this assessment. He had developed worsening thrombocytopenia during this stay. With discharge on July 01 he was 138. On admission he was 26. His platelets then dropped to 16 and I transfused. He climbed to 52 On July 12. Today he is 44.. He is not on lovenox. Hemoglobin was 8.3 at discharge last admit. 10.1 on admission>> 8.4>>8.2 today. Unclear why he is with thrombocytopenia. Not on Lovenox and not any medications that would do this. Covid can cause ITP 18-21 days after illness. I gave him 1 dose of Decadron 10 mg on the evening of July 12 to see if his platelets were responding. They did not. After his acceptance to be transferred to [facility], I am hoping that oncology may be able to comment on this. Prior to this admission, Dr. Kamron Wick from [facility] was his oncologist. (5) Restless leg syndrome: Impression: He stated that he was on methadone 20 mg at night for restless leg syndrome. Here he was resumed at 15 mg. He began complaining of leg pain and I added 5 mg of methadone in the morning. He received 1 dose on the morning of July 12 but was so sedated with it for the rest of the day that I stopped the methadone. Today he is much more alert, able to follow commands better. He is still taking methadone 10 mg at night. The methadone was started by his primary care provider. He states that he uses this as off label treatment of restless leg syndrome. 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 Has a pacemaker in place. Not on anticoagulation due to brain bleed and high fall risk. So far no tachyarrhythmias noted. Family is in agreement that they want his atrial fibrillation evaluated and that his abnormal troponins from admission should also be reevaluated. I have spoken to cardiology on-call at [facility], and that is . We discussed his admitting troponins and agreed with the assessment offered by Kevin automobile sales consultant cardiology that night. She is willing to see this patient in consult but will not be admitting. So the transfer center asked me to speak to a Hospitalist and Dr. Daley accepted. 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 He is on Lupron, olaparib, and dexamethasone 0.5 mg daily. To follow-up with oncology, Dr. Teran, after he is discharged. He is a full code. His family is also going to switch care to Kamron Wick (who previously cared for the patient when [facility] was sending physicians to our clinics). There was a family conference on the evening of July 12. Questions asked: 1. Update on his overall condition. I explained that I feel that he has a bacterial pneumonia superimposed on a recent COVID infection. That has sharply deteriorated his status and he has generalized weakness, respiratory failure, failure to thrive, with inability to swallow. His blood cultures have been negative. Sputum culture done on the was positive on the with staff aureus. He had less than 10 squamous cells, moderate gram-positive cocci in pairs and clusters and few white cells on Gram stain. Sensitivities are pending. I explained to them that I believe he has staph aureus pneumonia. He is on vancomycin for that until sensitivities return. 2. He has been unable to swallow and has had a poor appetite for over a week. The inability to swallow was evaluated by speech therapy this morning. He has marked reduction in normal reflexive oropharyngeal swallowing. He needs numerous prompts to be able to swallow his food bolus. He is at risk for aspiration. Speech therapy has requested a pured diet, and moderate thick liquids. We think that the reduction in swallowing is overall due to generalized weakness after his COVID and current pneumonia. The patient was able to tell speech therapy that he has been unable to eat over the last week or so not only due to lack of smell and anorexia, but he is afraid of swallowing incorrectly. Daughter reports he is not eaten much in 10 days. 3. They asked about my overall thought process about his deterioration. I explained that I think this is, unfortunately, an expected complication of an elderly person with COVID. He has really had a sharp deterioration and I do not know if he is going to survive this. They disagree with this thought process and feels that he was ambulatory 2 weeks ago. Eating. Taking walks. Doing well. That his cancer was under control. He had his fall after being sick with COVID for 5 to 7 days. Required hospitalization. Discharge. But did not really improve and continue to deteriorate at home and was brought in again because of another fall. They feel that he could improve if given enough nutrition and support to get him through this acute event. I had estimated that he might not be with us in a year. They disagree with that thought process and feel he could be with this much longer. 4. They are asking if he could please be transferred to a higher level of care. They worry about his atrial fibrillation. They worry about his nutrition and we discussed feeding tube. The family was in agreement that they all do want him to have a feeding tube. They also asked, that in the end, if he does well enough to be discharged can he be discharged with a feeding tube at home. I explained that he could go home with a feeding tube. 5. They asked about his admission diagnosis for "heart damage" and some "calcification" seen on chest x-ray. At that time there was a possibility being transferred to [facility] for elevated troponins. But when a repeat set of troponins had come down, [facility] cardiology did not feel the patient warranted transfer. They wonder if it is time for him to be transferred on the basis of the elevated troponins and the above atrial fibrillation. 6. They asked if I could please stop the methadone I had started this morning. I explained that I had spoken to Dr. Ortez yesterday after the patient was telling me that he was having bony pain in his left leg. When it asked the patient if there is anything he wanted me to take care of more than anything he had responded "the pain in his leg". And as such I gave him 5 mg of methadone this morning and I am continuing the methadone at night. Family is asked me to please stop the daily methadone and only give him methadone at night. They feel that it is sedating him too much today. Also worried that the methadone will constipate him. They want to know why he is not having bowel movements. I explained that they had told me that he been having diarrhea, and has not eaten solid food in 10 days, and I would not expect him to have bowel movements if there is nothing in his bowels. But they want us to be prepared to give him stool protocol if you start tube feedings. On discharge exam, the patient is very weak. You can barely hear him speak. But he is more alert and oriented and responsive than he was yesterday. He worked very hard with speech therapy this morning and daughter was at the bedside learning techniques to help with that swallow. Blood pressure is 135/90, pulse 80, respirations 16, temperature 36.5, O2 sat 96% and he is on 5 L nasal cannula. He is 6 foot tall, 64.5 kg. He looks older than his stated age. Barely able to keep his eyes open to speak to you. No JVD. Oral mucosa is dry and spite of IV fluid. An irregularly irregular heart rate but is not tachycardic. Soft systolic ejection murmur loudest at the apex. Lungs have coarse upper airway sounds but no crackles rhonchi or wheezing. He has a cough and he sounds congested at times but he still we cannot bring up his phlegm. An abdomen that is not distended, hypoactive bowel sounds, nontender. He has not had a bowel movement this stay but he has not eaten this stay. He shared with physical therapy that he is afraid to eat because he has a hard time swallowing and is afraid that he is going to choke. I have had a feeding tube placed today. It has not been used yet. Extremities have mild edema. He is oriented to person, place, situation but not time. He fatigues very easily after 1 or 2 sentences but no increased respiratory effort. Neurologically he has severe generalized weakness. Is a complete max assist for even rolling over in bed or sitting up. Greater than 30 minutes was spent coordinating discharge This document was made in part using voice recognition software. While efforts are made to proofread this document, sound alike and grammatical errors may occur. ALLERGIES Allergies Allergy/AdvReac Type Severity Reaction Status Date / Time No Known Drug Allergies Allergy Verified 07/10/24 13:08 MEDICATIONS Ambulatory Orders Medication Instructions Recorded Confirmed polyethylene glycol 3350 17 gram 17 g PO DAILY 03/19/21 07/11/24 oral powder packet olaparib 150 mg tablet (Lynparza) 300 mg (2 x 150 mg) PO BID #60 tabs 04/26/24 07/11/24 abiraterone 250 mg tablet 250 mg PO DAILY #30 tabs 06/29/24 07/11/24 methadone 10 mg tablet 15 mg PO HS 07/10/24 07/11/24 acetaminophen 500 mg tablet 500 mg PO BID PRN pain 07/11/24 07/11/24 (Tylenol Extra Strength) dexamethasone 1 mg tablet 0.5 mg PO DAILY 07/11/24 07/11/24 PHYSICAL EXAM AT DISCHARGE Vital Signs: Vital Signs x48h Temp Pulse Resp BP Pulse Ox O2 Flow Rate 07/13/24 15:00 36.5 C 80 16 135/90 H 96 5 07/13/24 13:00 36.5 C 90 16 151/93 H 94 5 07/13/24 08:20 5 07/13/24 08:19 36.5 C 20 113/61 98 5 LABS 07/13/24 05:29 07/13/24 05:29 Discharge Plan Discharge Patient Disposition: 02 Transfer Acute Care Hosp Condition: Stable Medically Cleared Date:: 07/13/24 Prescriptions: No Action Lynparza 150 mg tablet 300 mg PO BID Qty: 60 3RF abiraterone 250 mg tablet 250 mg PO DAILY Qty: 30 6RF polyethylene glycol 3350 17 GM powder in packet 17 g PO DAILY methadone 10 mg tablet 15 mg PO HS Patient Comments: take 2 tablets by mouth at bedtime dexamethasone 1 mg tablet 0.5 mg PO DAILY Patient Comments: take 0.5 tablet by mouth once daily acetaminophen [Tylenol Extra Strength] 500 mg tablet 500 mg PO BID PRN (Reason: pain) Print Language: Maori Follow-up Care: Sebastien Ortez MD [Primary Care Provider] -
--- NOTE | 2024-07-13 21:05 | ED Physician Documentation ---
History of Present Illness Stated complaint Stated Complaint: SOA Chief complaint Chief Complaint: General History obtained from History obtained from: Patient History of Present Illness Timing: Prior to arrival Additonal information Additional information: Patient is a 79 yo M stage IV prostate cancer currently on chemotherapy presents to the emergency department stating that he has increased fatigue today, he was seen last week after a fall and was found to be covid positive he was admitted for two days after being seen in the ED for weakness and dehydration. patient notes since then increased fatigue and weakness. On arrival patient is short of breath and able to provide some history but is a poor historian, he notes he has not been feeling better since his fall. He has been eating significantly less. On arrival he is on 4 L NC due to hypoxia, he is not on oxyggen at baseline. Meds/Allgy Home Medications Ambulatory Orders Medication Instructions Recorded Confirmed polyethylene glycol 3350 17 gram 17 g PO DAILY 03/19/21 07/11/24 oral powder packet olaparib 150 mg tablet (Lynparza) 300 mg (2 x 150 mg) PO BID #60 tabs 04/26/24 07/11/24 abiraterone 250 mg tablet 250 mg PO DAILY #30 tabs 06/29/24 07/11/24 methadone 10 mg tablet 15 mg PO HS 07/10/24 07/11/24 acetaminophen 500 mg tablet 500 mg PO BID PRN pain 07/11/24 07/11/24 (Tylenol Extra Strength) dexamethasone 1 mg tablet 0.5 mg PO DAILY 07/11/24 07/11/24 Allergies Allergies Allergy/AdvReac Type Severity Reaction Status Date / Time No Known Drug Allergies Allergy Verified 07/10/24 13:08 [facility] Active Problems All Active Problems (Updated 07/14/24 @ 00:00 by ) Pancytopenia (Acute) Acute hypoxic respiratory failure (Acute) Healthcare associated bacterial pneumonia (Acute) Atypical pneumonia (Acute) Closed fracture nasal bone (Acute) COVID (Acute) Cough (Acute) CKD (chronic kidney disease) stage 3, GFR 30-59 ml/min (Acute) Renal dysfunction (Acute) Dysuria (Acute) keno terminal operator (current) use of other agents affecting estrogen receptors and estrogen levels (Acute) Screening for osteoporosis (Acute) Splenic artery aneurysm (Acute) Pelvic fracture (Acute) Healthcare maintenance (Acute) Genetic counseling and testing (Acute) Anemia (Acute) Leg swelling (Acute) Encounter for antineoplastic chemotherapy (Acute) Secondary malignant neoplasm of testis (Acute) Cellulitis (Acute) CVA - cerebrovascular accident due to cerebral artery occlusion (Acute) Hypotension (Acute) Dehydration (Acute) Medical History Medical History (Updated 07/14/24 @ 00:00 by ) Atrial fibrillation 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 Relationship: Spouse Level: Assisted Home Mobility Equipment: Cane Do you feel safe in your home environment?: Yes Suffered physical, verbal, emotional, or financial abuse?: No History of Abuse: No ETOH Use: Wine Frequency: Occasional Substance Use: denies use POLST Patient has POLST: No Results Vitals Vitals: Oxygen O2 Source Nasal cannula Labs Labs: Microbiology 07/10/24 13:47 Blood Culture - Preliminary Blood - Left Arm NO GROWTH AFTER 2 DAYS 07/10/24 13:42 Blood Culture - Preliminary Blood - Right Arm NO GROWTH AFTER 2 DAYS Laboratory Tests 07/10/24 07/10/24 07/10/24 13:36 13:36 13:36 WBC 4.7 L RBC 2.58 L Hgb 10.1 L Hct 28.5 L MCV 110.5 H MCH 39.1 H MCHC 35.4 RDW 16.9 H Plt Count 26 L* Neut # (Auto) Not Reportable Lymph # (Auto) Not Reportable Dade # (Auto) Not Reportable Eos # (Auto) Not Reportable Baso # (Auto) Not Reportable Absolute Nucleated RBC Not Reportable Total Counted 100 Band Neuts % (Manual) 4 Abnorm Lymph % (Manual) 0 Nucleated RBC % Not Reportable Neutrophils # (Manual) 4.1 Lymphocytes # (Manual) 0.5 L Monocytes # (Manual) 0.1 Eosinophils # (Manual) 0.0 Basophils # (Manual) 0.0 Nucleated RBCs 1 Differential Comment MANUAL DIFFERENTIAL Platelet Estimate DECREASED (<130,000) Platelet Morphology NORMAL APPEARANCE RBC Morph Micro Appear 2+ POLYCHROMASIA 1+ OVALOCYTES 1+ SCHISTOCYTES PT INR Sodium Potassium Chloride Carbon Dioxide Anion Gap BUN Creatinine Estimated GFR (MDRD) Glucose Lactic Acid Calcium Total Bilirubin AST ALT Alkaline Phosphatase Troponin I High Sens B-Natriuretic Peptide Total Protein Albumin Globulin Albumin/Globulin Ratio Procalcitonin Immunoas Urine Color Urine Clarity Urine pH Ur Specific [place] Urine Protein Urine Glucose (UA) Urine Ketones Urine Occult Blood Urine Nitrite Urine Bilirubin Urine Urobilinogen Ur Leukocyte Esterase Urine RBC Urine WBC Ur Squamous Epith Cells Urine Bacteria Ur Microscopic Review Urine Culture Comments 07/10/24 07/10/24 07/10/24 13:36 13:36 13:42 WBC RBC Hgb Hct MCV MCH MCHC RDW Plt Count Neut # (Auto) Lymph # (Auto) Dade # (Auto) Eos # (Auto) Baso # (Auto) Absolute Nucleated RBC Total Counted Band Neuts % (Manual) Abnorm Lymph % (Manual) Nucleated RBC % Neutrophils # (Manual) Lymphocytes # (Manual) Monocytes # (Manual) Eosinophils # (Manual) Basophils # (Manual) Nucleated RBCs Differential Comment Platelet Estimate Platelet Morphology RBC Morph Micro Appear 2+ MACROCYTOSIS 1+ ANISOCYTOSIS PT 17.4 H INR 1.6 H Sodium 138 Potassium 3.9 Chloride 105 Carbon Dioxide 25 Anion Gap 8.0 BUN 51 H Creatinine 1.0 Estimated GFR (MDRD) 72 L Glucose 70 L Lactic Acid 1.3 Calcium 8.8 Total Bilirubin 2.0 H AST 100 H ALT 55 Alkaline Phosphatase 200 H Troponin I High Sens 383.9 H* B-Natriuretic Peptide 453 H Total Protein 5.7 L Albumin 2.8 L Globulin 2.9 Albumin/Globulin Ratio 1.0 Procalcitonin Immunoas 4.87 H* Urine Color Urine Clarity Urine pH Ur Specific [place] Urine Protein Urine Glucose (UA) Urine Ketones Urine Occult Blood Urine Nitrite Urine Bilirubin Urine Urobilinogen Ur Leukocyte Esterase Urine RBC Urine WBC Ur Squamous Epith Cells Urine Bacteria Ur Microscopic Review Urine Culture Comments 07/10/24 07/10/24 14:55 14:58 WBC RBC Hgb Hct MCV MCH MCHC RDW Plt Count Neut # (Auto) Lymph # (Auto) Dade # (Auto) Eos # (Auto) Baso # (Auto) Absolute Nucleated RBC Total Counted Band Neuts % (Manual) Abnorm Lymph % (Manual) Nucleated RBC % Neutrophils # (Manual) Lymphocytes # (Manual) Monocytes # (Manual) Eosinophils # (Manual) Basophils # (Manual) Nucleated RBCs Differential Comment Platelet Estimate Platelet Morphology RBC Morph Micro Appear PT INR Sodium Potassium Chloride Carbon Dioxide Anion Gap BUN Creatinine Estimated GFR (MDRD) Glucose Lactic Acid Calcium Total Bilirubin AST ALT Alkaline Phosphatase Troponin I High Sens 360.6 H* B-Natriuretic Peptide Total Protein Albumin Globulin Albumin/Globulin Ratio Procalcitonin Immunoas Urine Color YELLOW Urine Clarity CLEAR Urine pH 6.0 Ur Specific [place] 1.020 Urine Protein 100 H Urine Glucose (UA) NEGATIVE Urine Ketones 15 H Urine Occult Blood SMALL H Urine Nitrite NEGATIVE Urine Bilirubin NEGATIVE Urine Urobilinogen 0.2 (NORMAL) Ur Leukocyte Esterase NEGATIVE Urine RBC 0-5 Urine WBC 0-3 Ur Squamous Epith Cells RARE Squamous Urine Bacteria None Seen Ur Microscopic Review INDICATED Urine Culture Comments NOT INDICATED PD Medical Decision Making ED course Complexity details: reviewed old records and reviewed results ED course: Patient is a 79 yo M stage IV prostate cancer currently on chemotherapy presents to the emergency department stating that he has increased fatigue today, he was seen last week after a fall and was found to be covid positive he was admitted for two days after being seen in the ED for weakness and dehydration. patient notes since then increased fatigue and weakness. On arrival patient is short of breath and able to provide some history but is a poor historian, he notes he has not been feeling better since his fall. He has been eating significantly less. On arrival he is on 4 L NC due to hypoxia, he is not on oxyggen at baseline. Labs are concerning for initial troponin of 160, with WBC-4.7, procalcitonin-4.7 with CXR concerning for left sided worsening apical pneumonia. Troponin downtrending but despite duoneb treatment patient is now requiring 6 L NC. Patient will be admitted to the floor after discussion with cardiology at [facility], he has a platelet of 26, which is not completely abnormal for his baseline secondary to cancer. Discharge Plan Discharge Patient Disposition: [facility] DC/Xfer Condition: Stable Clinical Impression: Pneumonia, Breath shortness Interventions: ED Admission Assessment Last Done: 07/10/24 18:44
== END 2024-07-13 15:35 | disposition short-term general hospital (02) | DRG 177 ==
LOC: ED 12:59 → MS2 17:04
PROVIDERS: ADMIT Internal Medicine; ATTEND Internal Medicine
DX: R63.8 Other symptoms and signs concerning food and fluid intake; N18.30 Chronic kidney disease, stage 3 unspecified; I48.91 Unspecified atrial fibrillation; C79.51 Secondary malignant neoplasm of bone; Z91.81 History of falling; Y95 Nosocomial condition; Z86.16 Personal history of COVID-19; R19.7 Diarrhea, unspecified; E16.2 Hypoglycemia, unspecified; R13.12 Dysphagia, oropharyngeal phase; J15.212 Pneumonia due to Methicillin resistant Staphylococcus aureus; Z79.899 Other long term (current) drug therapy; J18.9 Pneumonia, unspecified organism; Z95.0 Presence of cardiac pacemaker; C61 Malignant neoplasm of prostate; E86.0 Dehydration; D61.818 Other pancytopenia; R53.83 Other fatigue; J96.01 Acute respiratory failure with hypoxia; G25.81 Restless legs syndrome; R79.89 Other specified abnormal findings of blood chemistry; I49.5 Sick sinus syndrome